=== PATIENT | female | born 1975 | race Hispanic/Latino ===

== ENCOUNTER 2018-09-23 13:33 | Inpatient (IN) | payer MEDICAID ==
[2018-09-23] MEDS ORDERED: APRESOLINE IV ONE ×2 (15:52→20:37)
--- NOTE | 2018-09-23 15:54 | History and Physical Report ---
History of Present Illness Chief complaint: transferred from [facility] due to uncontrolled chronic hypertension 177/80s. History of present illness: 43yo 21 2/7 wks YUNIER 02/02/19 was transferred from [facility], maternal medicine due to uncontrolled hypertension. She has a history of chronic hypertension and stroke in 2010. She states she had 4 strokes in one hour. She is followed by a magnetic resonance imaging coordinator Dr. Yasmany Mcneill in [place]. Today she also states she feels substernal chest pain at rest. She reports movement mostly in the mornings. She denies vaginal bleeding, contractions or loss of fluid She is patient of [facility] and has had 3 [facility] appointments. Past History Past Medical History: hypertension, other Past Surgical History: other (Cardiac Cath 2018, Piloneal cyst removal) Family/Genetic History: heart disease, hypertension - Obstetrical History : 4 Para: 3 Number of Living Children: 3 Medications and Allergies Allergies Allergy/AdvReac Type Severity Reaction Status Date / Time No Known Allergies Allergy Unverified 09/23/18 15:23 Home Medications Medication Instructions Recorded Confirmed Last Taken Type Aspirin [Lo-Dose Aspirin EC] 81 mg PO DAILY 09/23/18 09/23/18 09/23/18 05:00 History Ferrous Sulfate [Iron] 325 mg PO DAILY 09/23/18 09/23/18 09/23/18 05:00 History Labetalol [Normodyne TAB] 100 mg PO DAILY 09/23/18 09/23/18 09/23/18 05:00 History Vit-Fe Fumar-FA [ 1 tab PO QDAY 09/23/18 09/23/18 09/23/18 05:00 History Vitamin] cloNIDine [Catapres] 0.1 mg PO PRN 09/23/18 09/23/18 Unknown History Active Meds: Active Medications Hydralazine HCl (Apresoline) 10 mg IV ONCE ONE Stop: 09/23/18 15:53 Lactated Ringer's (Lactated Ringers) 500 mls @ 999 mls/hr IV BOLUS ONE Stop: 09/23/18 17:15 - Vital Signs Vital signs: Vital Signs Pulse BP 75 189/100 09/23/18 15:29 09/23/18 15:29 Temp Pulse Resp BP Pulse Ox 68 181/97 09/23/18 15:46 09/23/18 15:46 Results Result Diagrams: 09/24/18 05:37 09/23/18 16:08 All other labs normal. Assessment and Plan - Patient Problems (1) Chronic hypertension affecting Current Visit: Yes Status: Acute Plan to address problem: Hydralazine PRN Increase Labetolol 200mg PO BID US done yesterday at [facility] labs drawn and repeat at 0600 (2) 21 weeks gestation of Current Visit: Yes Status: Acute (3) Advanced maternal age (AMA), 40 years or greater Current Visit: Yes Status: Acute (4) History of CVA (cerebrovascular accident) Current Visit: Yes Status: Acute Plan to address problem: Continue ASA 81mg Currently on no anti-thrombotics Co-managed with cardiology, [facility] outpatient (5) Chest pain Current Visit: Yes Status: Acute Plan to address problem: EKG ordered Troponin ordered Internal medicine consult
[2018-09-23] MEDS ORDERED: LACTATED RINGERS 500 ML IV ONE (16:45)
[2018-09-23 16:56] LABS: Hemoglobin 11.3 gm/dl (10.1-14.3); Mean Corpuscular HGB Conc 34 % (30-34); Mean Corpuscular Volume 85 fl (79-97); Platelet Count 277 K/mm3 (140-440); Red Blood Count 3.91 M/mm3 (3.65-5.03); Red Cell Distribution Width 15.4 % (13.2-15.2)
[2018-09-23 17:28] LABS: Bacteria,Urine 1+ /HPF (Negative); Bilirubin,Urine NEG (Negative); Blood,Urine NEG (Negative); Color,Urine Amber (Yellow); Mucus,Urine 2+ /HPF; Urobilinogen,Urine < 2.0 mg/dL (<2.0)
[2018-09-23 17:29] LABS: Alanine Aminotransferase 16 units/L (7-56)
[2018-09-23] MEDS: NORMODYNE PO SCH (21:47)
[2018-09-23] MEDS ORDERED: NORMODYNE PO SCH (22:00)
[2018-09-23] MEDS ORDERED: TYLENOL PO PRN (22:03)
[2018-09-23] MEDS ORDERED: COLACE PO PRN (22:03)
--- NOTE | 2018-09-24 03:07 | History and Physical Report ---
History of Present Illness Date of admission: 09/23/18 20:14 Medications and Allergies Allergies Allergy/AdvReac Type Severity Reaction Status Date / Time No Known Allergies Allergy Unverified 09/23/18 15:23 Home Medications Medication Instructions Recorded Confirmed Last Taken Type Aspirin [Lo-Dose Aspirin EC] 81 mg PO DAILY 09/23/18 09/23/18 09/23/18 05:00 History Ferrous Sulfate [Iron] 325 mg PO DAILY 09/23/18 09/23/18 09/23/18 05:00 History Labetalol [Normodyne TAB] 100 mg PO DAILY 09/23/18 09/23/18 09/23/18 05:00 History Vit-Fe Fumar-FA [ 1 tab PO QDAY 09/23/18 09/23/18 09/23/18 05:00 History Vitamin] cloNIDine [Catapres] 0.1 mg PO PRN 09/23/18 09/23/18 Unknown History Active Meds: Active Medications Acetaminophen (Tylenol) 650 mg PO Q4H PRN PRN Reason: Pain MILD(1-3)/Fever >100.5/ALMODOVAR Last Admin: 09/23/18 22:18 Dose: 650 mg Documented by: Aspirin (Baby Aspirin) 81 mg PO QDAY [facility] Docusate Sodium (Colace) 100 mg PO Q12H PRN PRN Reason: Constipation Labetalol HCl (Normodyne) 300 mg PO BID [facility] Last Admin: 09/23/18 21:47 Dose: 300 mg Documented by: Multivitamins/Iron/Calcium ( Vitamin) 1 each PO QDAY [facility] Exam - Constitutional Vitals: Temp Pulse Resp BP Pulse Ox 98.1 F 82 18 111/62 09/23/18 16:00 09/24/18 02:53 09/23/18 16:00 09/24/18 02:53 Results - Labs CBC & Chem 7: 09/23/18 16:08 09/23/18 16:08 Labs: Abnormal lab results 09/23/18 09/23/18 Range/Units 16:08 16:08 RDW 15.4 H (13.2-15.2) % AST 43 H (5-40) units/L Lactate Dehydrogenase 466 H (91-180) units/L
--- NOTE | 2018-09-24 03:08 | Consultation ---
History of Present Illness - Reason for Consult Consult date: 09/23/18 - History of Present Illness 43-year-old with a history of hypertension, uncontrolled, 21 weeks comes emergency room for further control of blood pressure. He also complained of chest pain, left chest, sharp, intensity 4/10, usually lasting for less than 1 minute, no radiation, cannot identify exacerbating or relieving factors. She states that she has been having this chest pain 1-2 times a week over the last 1 year. She had a cardiac cath in 2017, no stents were placed. She's also states she has a history of CVA, she had 4 strokes in 24 hours. Over the last 2 weeks she has been on bed rest. No nausea or vomiting, shortness of breath, diaphoresis or palpitation. She takes frequent Tums for heartburn Review of systems Constitutional: no weight loss, chills, fever Ears, eyes, nose, mouth and throat: no nasal congestion, no nasal discharge, no sinus pressure, no vision change, no red eye. Neck: No neck pain or rigidity. Cardiovascular: no palpitations Respiratory: no cough, shortness of breath Gastrointestinal: no hematochezia, abdominal pain Genitourinary : no frequency , no hematuria Musculoskeletal: no joint swelling or muscle ache Integumentary: no rash, no pruritis Neurological: no parathesias, no focal weakness Endocrine: no cold or heat intolerance, no polyuria or polydipsia Hematologic/Lymphatic: no easy bruising, no easy bleeding, no gland swelling Allergic/Immunologic: no urticaria, no angioedema. PAST MEDICAL HISTORY: Hypertension PAST SURGICAL HISTORY: None SOCIAL HISTORY: Denies alcohol, drugs, tobacco FAMILY HISTORY: Hypertension Medications and Allergies Allergies Allergy/AdvReac Type Severity Reaction Status Date / Time No Known Allergies Allergy Unverified 09/23/18 15:23 Home Medications Medication Instructions Recorded Confirmed Last Taken Type Aspirin [Lo-Dose Aspirin EC] 81 mg PO DAILY 09/23/18 09/23/18 09/23/18 05:00 History Ferrous Sulfate [Iron] 325 mg PO DAILY 09/23/18 09/23/18 09/23/18 05:00 History Labetalol [Normodyne TAB] 100 mg PO DAILY 09/23/18 09/23/18 09/23/18 05:00 History Vit-Fe Fumar-FA [ 1 tab PO QDAY 09/23/18 09/23/18 09/23/18 05 :00 History Vitamin] cloNIDine [Catapres] 0.1 mg PO PRN 09/23/18 09/23/18 Unknown History RX: Labetalol [Normodyne TAB] 300 mg PO BID #90 tablet 09/26/18 Unknown Rx Active Meds: Active Medications Acetaminophen (Tylenol) 650 mg PO Q4H PRN PRN Reason: Pain MILD(1-3)/Fever >100.5/ALMODOVAR Last Admin: 09/23/18 22:18 Dose: 650 mg Documented by: Aspirin (Baby Aspirin) 81 mg PO QDAY [facility] Docusate Sodium (Colace) 100 mg PO Q12H PRN PRN Reason: Constipation Labetalol HCl (Normodyne) 300 mg PO BID [facility] Last Admin: 09/23/18 21:47 Dose: 300 mg Documented by: Multivitamins/Iron/Calcium ( Vitamin) 1 each PO QDAY [facility] Exam - Physical Exam Narrative exam: General Apperance: The patient lying in bed, breathing comfortable HEENT: Normocephalic, atraumatic. Pupils equally round and reactive to light, EOMI, no sclericterus or JVD or thyromegaly or nodule. , no carotid bruit, muc ous membranes moist, no exudate or erythema Heart: S1-S2, regular is rhythm Lungs: Clear to auscultation bilaterally, breathing comfortable Abdomen: Positive bowel sounds, soft, nontender, nondistended, no organomegaly Extremities: No edema cyanosis clubbing Skin: no rash, nodule, warm and dry Neuro: cranial nerves 2-12 intact, speech is fluent, motor/sensory intact - Constitutional Vitals: Temp Pulse Resp BP Pulse Ox 98.1 F 82 18 111/62 09/23/18 16:00 09/24/18 02:53 09/23/18 16:00 09/24/18 02:53 Results - Labs CBC & Chem 7: 09/24/18 05:37 09/23/18 16:08 Labs: Abnormal lab results 09/23/18 09/23/18 Range/Units 16:08 16:08 RDW 15.4 H (13.2-15.2) % AST 43 H (5-40) units/L Lactate Dehydrogenase 466 H (91-180) units/L - Imaging and Cardiology EKG: image reviewed Assessment and Plan Assessment Atypical chest pain Hypertension Check cardiac enzymes She has risk factors for pulmonary emboli, discuss workup She will think about a lesion and discussed with Her blood Pressure is now controlled, continue current management Please initiate DVT prophylaxis
[2018-09-24] MEDS ORDERED: TYLENOL PO NR (04:58)
[2018-09-24 05:55] LABS: Hematocrit 32.9 % (30.3-42.9); Hemoglobin 10.9 gm/dl (10.1-14.3); Mean Corpuscular HGB Conc 33 % (30-34); Mean Corpuscular Volume 86 fl (79-97); Platelet Count 291 K/mm3 (140-440); Red Blood Count 3.83 M/mm3 (3.65-5.03); Red Cell Distribution Width 15.6 % (13.2-15.2)
[2018-09-24 06:14] LABS: Alanine Aminotransferase 14 units/L (7-56)
[2018-09-24 06:34] LABS: Creatine Kinase MB < 1.0 ng/mL (0.0-4.0)
[2018-09-24 10:16] LABS: Creatine Kinase MB < 1.0 ng/mL (0.0-4.0)
[2018-09-24] MEDS: NORMODYNE PO SCH ×2 (10:43→22:00)
[2018-09-24] MEDS: PRENATAL VITAMIN PO SCH (10:43)
[2018-09-24] MEDS: BABY ASPIRIN PO SCH (10:43)
--- NOTE | 2018-09-24 10:48 | Progress Note ---
Assessment and Plan - Patient Problems (1) 21 weeks gestation of Onset Date: ~09/23/18 Current Visit: Yes Status: Acute Plan to address problem: A: IUP @ 21 3/7 weeks Chest pain AMA Chronic hypertension P: Continue present management Appreciate Hospitalist input Obtain [facility] and Cardiology consultation (2) Advanced maternal age (AMA), 40 years or greater Onset Date: ~09/24/18 Current Visit: Yes Status: Chronic (3) Chest pain Onset Date: ~09/23/18 Current Visit: Yes Status: Acute Qualifiers: Ischemic chest pain type: unspecified angina pectoris type (4) Chronic hypertension affecting Onset Date: ~09/23/18 Current Visit: Yes Status: Chronic (5) History of CVA (cerebrovascular accident) Onset Date: Unknown Current Visit: Yes Status: Chronic Subjective - Subjective Date of service: 09/24/18 Principal diagnosis: IUP @ 21 3/7 weeks; Chronic hypertension; Chest pain Interval history: Pt is a 42yo BF EGA 21 3/7 wks YUNIER 02/02/19 was admitted from [facility], maternal medicine due to uncontrolled hypertension on 09/23/18 . She has a history of chronic hypertension and stroke. She is followed by a forensic investigator Dr. Yasmany Mcneill in [place]. On admission she felt substernal chest pain at rest. It was previously recommended to obtain Cardiology consult during this admission . She currently denies chest pain, SOB, VB, ABD pain , calf pain , LOF, and BP's have improved while increase on Labetalol. She has been ev aluated by [facility] Hospitalist, and a Cardiology consult has been ordered. Patient reports: movement normal, no new complaints, no loss of fluid, no vaginal bleeding, no contractions Objective - Vital Signs Vital Signs: Vital Signs - 12hr 09/23/18 09/23/18 09/23/18 22:53 23:13 23:33 Temperature Pulse Rate 86 83 90 Respiratory Rate Blood Pressure 133/72 121/58 107/53 09/23/18 09/24/18 09/24/18 23:53 00:00 00:13 Temperature 98.8 F Pulse Rate 81 90 Respiratory Rate Blood Pressure 134/66 108/62 09/24/18 09/24/18 09/24/18 00:33 00:53 01:13 Temperature Pulse Rate 83 88 84 Respiratory Rate Blood Pressure 108/56 94/56 139/71 09/24/18 09/24/18 09/24/18 01:33 01:53 02:13 Temperature Pulse Rate 77 77 86 Respiratory Rate Blood Pressure 123/58 108/56 115/54 09/24/18 09/24/18 09/24/18 02:33 02:53 03:13 Temperature Pulse Rate 82 82 74 Respiratory Rate Blood Pressure 110/56 111/62 123/59 09/24/18 09/24/18 09/24/18 03:33 03:53 04:07 Temperature 98.4 F Pulse Rate 77 74 Respiratory Rate Blood Pressure 115/57 154/83 09/24/18 09/24/18 09/24/18 04:13 04:33 04:53 Temperature Pulse Rate 71 73 68 Respiratory Rate Blood Pressure 140/73 136/64 129/65 09/24/18 09/24/18 09/24/18 05:13 05:28 05:52 Temperature Pulse Rate 73 73 Respiratory 12 Rate Blood Pressure 137/73 140/68 09/24/18 09/24/18 09/24/18 06:13 06:33 06:53 Temperature Pulse Rate 77 83 77 Respiratory Rate Blood Pressure 160/77 149/72 137/61 09/24/18 09/24/18 09/24/18 07:13 07:33 07:52 Temperature Pulse Rate 76 74 75 Respiratory Rate Blood Pressure 141/66 142/66 147/66 09/24/18 09/24/18 09/24/18 08:12 08:33 08:53 Temperature Pulse Rate 71 71 65 Respiratory Rate Blood Pressure 139/93 176/87 182/89 09/24/18 09/24/18 09/24/18 09:13 09:33 09:52 Temperature Pulse Rate 77 71 69 Respiratory Rate Blood Pressure 189/93 162/87 141/93 09/24/18 09/24/18 09/24/18 10:13 10:33 10:43 Temperature Pulse Rate 66 75 75 Respiratory Rate Blood Pressure 178/79 171/80 171/80 09/24/18 10:44 Temperature Pulse Rate 68 Respiratory Rate Blood Pressure 180/85 - Exam Cardiovascular: Regular rate Lungs: Clear to auscultation Abdomen: Present: normal appearance, soft Uterus: Present: normal FHR: category 1 Uterine Contraction Monitor Mode: External Uterine Contraction Pattern: Absent - Labs Labs: Abnormal Labs 09/23/18 09/23/18 09/24/18 16:08 16:08 05:37 RDW 15.4 H 15.6 H AST 43 H Lactate Dehydrogenase 466 H Total Creatine Kinase 09/24/18 05:37 RDW AST Lactate Dehydrogenase Total Creatine Kinase 26 L Laboratory Results - last 24 hr 09/23/18 09/23/18 09/23/18 16:08 16:08 16:35 WBC 9.6 RBC 3.91 Hgb 11.3 Hct 33.0 MCV 85 MCH 29 MCHC 34 RDW 15.4 H Plt Count 277 Creatinine 0.7 Estimated GFR > 60 Uric Acid 6.0 AST 43 H ALT 16 Lactate Dehydrogenase 466 H Total Creatine Kinase CK-MB (CK-2) CK-MB (CK-2) Rel Index Troponin T Urine Color Genet Urine Turbidity Slightly-cloudy Urine pH 5.0 Ur Specific [place] 1.028 Urine Protein 100 mg/dl Urine Glucose (UA) Neg Urine Ketones 20 Urine Blood Neg Urine Nitrite Neg Urine Bilirubin Neg Urine Urobilinogen < 2.0 Ur Leukocyte Esterase Neg Urine WBC (Auto) 1.0 Urine RBC (Auto) 6.0 U Epithel Cells (Auto) 9.0 Urine Bacteria (Auto) 1+ Urine Mucus 2+ 09/24/18 09/24/18 09/24/18 05:37 05:37 05:37 WBC 10.4 RBC 3.83 Hgb 10.9 Hct 32.9 MCV 86 MCH 29 MCHC 33 RDW 15.6 H Plt Count 291 Creatinine Estimated GFR Uric Acid AST ALT 14 Lactate Dehydrogenase 143 Total Creatine Kinase CK-MB (CK-2) CK-MB (CK-2) Rel Index Troponin T < 0.010 Urine Color Urine Turbidity Urine pH Ur Specific [place] Urine Protein Urine Glucose (UA) Urine Ketones Urine Blood Urine Nitrite Urine Bilirubin Urine Urobilinogen Ur Leukocyte Esterase Urine WBC (Auto) Urine RBC (Auto) U Epithel Cells (Auto) Urine Bacteria (Auto) Urine Mucus 09/24/18 09/24/18 09/24/18 05:37 09:12 09:12 WBC RBC Hgb Hct MCV MCH MCHC RDW Plt Count Creatinine Estimated GFR Uric Acid AST ALT Lactate Dehydrogenase Total Creatine Kinase 26 L 33 CK-MB (CK-2) < 1.0 < 1.0 CK-MB (CK-2) Rel Index 3.8 3.0 Troponin T < 0.010 Urine Color Urine Turbidity Urine pH Ur Specific [place] Urine Protein Urine Glucose (UA) Urine Ketones Urine Blood Urine Nitrite Urine Bilirubin Urine Urobilinogen Ur Leukocyte Esterase Urine WBC (Auto) Urine RBC (Auto) U Epithel Cells (Auto) Urine Bacteria (Auto) Urine Mucus - Results US- obstetric: report reviewed
[2018-09-24] MEDS ORDERED: ZOFRAN IV PRN (11:00)
[2018-09-24] MEDS ORDERED: COLACE PO PRN (11:00)
[2018-09-24] MEDS ORDERED: LACTATED RINGERS 1,000 ML IV SCH (11:00)
[2018-09-24] MEDS: HEPARIN SUB-Q SCH ×2 (11:40→22:04)
--- NOTE | 2018-09-24 12:52 | Consultation ---
History of Present Illness Reason for consult: other (42yo 21 3/7 wks YUNIER 02/02/19 was admitted from [facility], maternal medicine due to uncontrolled hypertension on 09/23/18 . She has a history of chronic hypertension and stroke (She stated she had 4 strokes in one hour) She is followed by a registered nurse supervisor Dr. Yasmany Mcneill in [place]. Yesterday she felt substernal chest pain at rest. It was previously recommended to obtain Cardiology consult during this admission . Patient denies chest pain, SOB, VB, ABD pain , calf pain , LOF . BP's have improved during admission while increase in Labetalol . Patient was started on Heparin 5, 000 unit SQ BID per hospitalist .) Past History Past Medical History: hypertension, other Past Surgical History: other (Cardiac Cath 2018, Piloneal cyst removal) Family/Genetic History: heart disease, hypertension - Obstetrical History : 4 Medications and Allergies Allergies Allergy/AdvReac Type Severity Reaction Status Date / Time No Known Allergies Allergy Unverified 09/23/18 15:23 Home Medications Medication Instructions Recorded Confirmed Last Taken Type Aspirin [Lo-Dose Aspirin EC] 81 mg PO DAILY 09/23/18 09/23/18 09/23/18 05:00 History Ferrous Sulfate [Iron] 325 mg PO DAILY 09/23/18 09/23/18 09/23/18 05:00 History Labetalol [Normodyne TAB] 100 mg PO DAILY 09/23/18 09/23/18 09/23/18 05:00 History Vit-Fe Fumar-FA [ 1 tab PO QDAY 09/23/18 09/23/18 09/23/18 05:00 History Vitamin] cloNIDine [Catapres] 0.1 mg PO PRN 09/23/18 09/23/18 Unknown History Active Meds: Active Medications Acetaminophen (Tylenol) 650 mg PO Q4H PRN PRN Reason: Pain MILD(1-3)/Fever >100.5/ALMODOVAR Aspirin (Baby Aspirin) 81 mg PO QDAY [facility] Last Admin: 09/24/18 10:43 Dose: 81 mg Documented by: Docusate Sodium (Colace) 100 mg PO Q12H PRN PRN Reason: Constipation Heparin Sodium (Porcine) (Heparin) 5,000 unit SUB-Q Q12HR [facility] Last Admin: 09/24/18 11:40 Dose: 5,000 unit Documented by: Lactated Ringer's (Lactated Ringers) 1,000 mls @ 125 mls/hr IV DIRECT [facility] Labetalol HCl (Normodyne) 300 mg PO BID [facility] Last Admin: 09/24/18 10:43 Dose: 300 mg Documented by: Multivitamins/Iron/Calcium ( Vitamin) 1 each PO QDAY [facility] Last Admin: 09/24/18 10:43 Dose: 1 each Documented by: Ondansetron HCl (Zofran) 4 mg IV Q6H PRN PRN Reason: Nausea And Vomiting Review of Systems Constitutional: no fever, no chills, no fatigue Eyes: no other (visual changes ) Ears, nose, mouth and throat: no headache Cardiovascular: high blood pressure (CHTN stable BP under current medical therpay ), no chest pain, no palpitations, no rapid/irregular heart beat, no edema, no syncope, no lightheadedness, no dyspnea on exertion, no leg edema Respiratory: no cough, no shortness of breath Breasts: deferred Gastrointestinal: no abdominal pain, no nausea, no vomiting Genitourinary: no vaginal bleeding, no leakage of fluid, no pelvic pain, no contractions Rectal Exam: deferred Musculoskeletal: no low back pain, no other (calf pain ) Integumentary: no rash Neurological: no seizures, no syncope, no headaches Endocrine: other (history of GDM ) Hematologic/Lymphatic: no easy bruising - Vital Signs Vital signs: Vital Signs Pulse BP 75 189/100 09/23/18 15:29 09/23/18 15:29 Temp Pulse Resp BP Pulse Ox 98.1 F 69 16 121/71 09/24/18 11:23 09/24/18 12:36 09/24/18 11:23 09/24/18 12:36 - Physical Exam Breasts: Positive: deferred Cardiovascular: Regular rate Lungs: Positive: Normal air movement Abdomen: Negative: tenderness, guarding Uterus: Negative: tender Extremities: Positive: normal. Negative: tenderness, edema Deep Tendon Reflex Grade: Normal +2 - Obstetrical FHR: auscultation normal (per doppler by RN ) Uterine Contraction Monitor Mode: Palpation (none palpated) Results Result Diagrams: 09/24/18 05:37 09/23/18 16:08 Abnormal lab results 09/23/18 09/23/18 09/24/18 Range/Units 16:08 16:08 05:37 RDW 15.4 H 15.6 H (13.2-15.2) % AST 43 H (5-40) units/L Lactate Dehydrogenase 466 H (91-180) units/L Total Creatine Kinase (30-135) units/L 09/24/18 Range/Units 05:37 RDW (13.2-15.2) % AST (5-40) units/L Lactate Dehydrogenase (91-180) units/L Total Creatine Kinase 26 L (30-135) units/L All other labs normal. Assessment and Plan IMPRESSIONS: 1. 21 3/7 weeks, SIUP 2. CHTN; improved and stable from [facility] assessment 09/23/18 ( BP of 177/98 and 162/88 mm Hg ) 3. On anticoagulant therapy of heparin for DVT prophylaxis 4. Hx Stroke x4 5. History of CHTN x [address] Mcneill ( [facility] ) 6. AMA previously declined amnio 7. NIPT screened Low Risk , Female 8. Chest pain S/P evaluation by hospitalist - no longer reports chest pain ( previous assessment chest pain, left chest, sharp, intensity 4/10, usually lasting for less than 1 minute, no radiation, cannot identify exacerbating or relieving factors. She states that she has been having this chest pain 1-2 times a week over the last 1 year.) 9. 24 hr urine in progress . 10. Hx of coronary catherization 11. Hx of GDM ( no early GCT screen ) 12. BP 120-140's /70-90 mm Hg under Labetalol 300 mg PO BID 13. Elevated AST 14. Abn ECG -Left ventricular hypertrophy 15. ECG - rate 72 Sinus rhythm RECOMMENDATIONS: 1. Patient to complete 24 hr urine at home 2. As previously recommended obtain Cardiology evaluation while in patient 3. Remain in patient pending lab review and stabilization of patient 4. Document 12-Lead EKG if not done within last 12 months 5. Continue Labetalol to 300 mg PO BID as previously prescribed 6. Do not drop patient's BP too significantly 7. Bring BP log to OB/our office each visit 8. Continue current Heparin therapy as previously recommended 9. Obtain OB U/S for growth assessment and placental anatomy 10. Repeat CMP 11. With any questions or further assessment notify [facility] construction crew member provider - Dr. Portillo
--- NOTE | 2018-09-24 14:47 | Progress Note ---
Assessment and Plan Assessment and plan: Patient is a 43 yo woman who is 21 weeks with a history of hypertension, CVA x 4 with resolved right hemiparesis followed by General Surgeon, Dr. Bryant Mcneill who presented to [facility] with uncontrolled hypertension. She is currently in the L&D unit. Hospitalist team consulted for chest pains. Chest pains with negative troponin x 2 and unremarkable EKG for infarction and resolved chest pains: Recommend Cardiology consult if Chest pains re-occurs, if there is a question of PE I would recommend pulmonology consult. Uncontrolled hypertension: tariff publishing agent managing IUP: monitoring per tariff publishing agent Nothing more to add, will sign off. History Interval history: Patient was seen and examined. Follow-up on current diagnosis of chest pains. Overnight uneventful. Patient denies any chest pain currently, shortness breath, nausea/vomiting or severe headaches. Imaging, nursing note, chart, labs and old chart reviewed. Discussed with patient. Hospitalist Physical - Physical exam Narrative exam: Gen: WDWN, NAD, Awake, Alert, Orientated HEENT: NCAT, EOMI, PERRL, OP Clear Neck: supple, no adenopathy, no thyromegaly, no JVD CVS/Heart: RRR, normal S1S2, pulses present bilaterally Chest/Lungs: CTA B, Symmetrical chest expansion, good air entry bilaterally GI/Abdomen: soft, NTND, good bowel sounds, no guarding or rebound /Bladder: no suprapubic tenderness, no CVA or paraspinal tenderness Extermity/Skin: no c/c/e, no obvious rash MSK: FROM x 4 Neuro: CN 2-12 grossly intact, no new focal deficits Psych: calm - Constitutional Vitals: Temp Pulse Resp BP Pulse Ox 98.1 F 78 16 143/77 09/24/18 11:23 09/24/18 13:43 09/24/18 11:23 09/24/18 13:43 Results - Labs CBC & Chem 7: 09/24/18 05:37 09/23/18 16:08 Labs: Laboratory Last Values WBC 10.4 K/mm3 (4.5-11.0) 09/24/18 05:37 RBC 3.83 M/mm3 (3.65-5.03) 09/24/18 05:37 Hgb 10.9 gm/dl (10.1-14.3) 09/24/18 05:37 Hct 32.9 % (30.3-42.9) 09/24/18 05:37 MCV 86 fl (79-97) 09/24/18 05:37 MCH 29 pg (28-32) 09/24/18 05:37 MCHC 33 % (30-34) 09/24/18 05:37 RDW 15.6 % (13.2-15.2) H 09/24/18 05:37 Plt Count 291 K/mm3 (140-440) 09/24/18 05:37 Creatinine 0.7 mg/dL (0.7-1.2) 09/23/18 16:08 Estimated GFR > 60 ml/min 09/23/18 16:08 Uric Acid 6.0 mg/dL (3.5-7.6) 09/23/18 16:08 AST 43 units/L (5-40) H 09/23/18 16:08 ALT 14 units/L (7-56) 09/24/18 05:37 Lactate Dehydrogenase 143 units/L (91-180) 09/24/18 05:37 Total Creatine Kinase 33 units/L (30-135) 09/24/18 09:12 CK-MB (CK-2) < 1.0 ng/mL (0.0-4.0) 09/24/18 09:12 CK-MB (CK-2) Rel Index 3.0 (0-4) 09/24/18 09:12 Troponin T < 0.010 ng/mL (0.00-0.029) 09/24/18 09:12 Urine Color Genet (Yellow) 09/23/18 16:35 Urine Turbidity Slightly-cloudy (Clear) 09/23/18 16:35 Urine pH 5.0 (5.0-7.0) 09/23/18 16:35 Ur Specific Temple 1.028 (1.003-1.030) 09/23/18 16:35 Urine Protein 100 mg/dl mg/dL (Negative) 09/23/18 16:35 Urine Glucose (UA) Neg mg/dL (Negative) 09/23/18 16:35 Urine Ketones 20 mg/dL (Negative) 09/23/18 16:35 Urine Blood Neg (Negative) 09/23/18 16:35 Urine Nitrite Neg (Negative) 09/23/18 16:35 Urine Bilirubin Neg (Negative) 09/23/18 16:35 Urine Urobilinogen < 2.0 mg/dL (<2.0) 09/23/18 16:35 Ur Leukocyte Esterase Neg (Negative) 09/23/18 16:35 Urine WBC (Auto) 1.0 /HPF (0.0-6.0) 09/23/18 16:35 Urine RBC (Auto) 6.0 /HPF (0.0-6.0) 09/23/18 16:35 U Epithel Cells (Auto) 9.0 /HPF (0-13.0) 09/23/18 16:35 Urine Bacteria (Auto) 1+ /HPF (Negative) 09/23/18 16:35 Urine Mucus 2+ /HPF 09/23/18 16:35 Blood Type O POSITIVE 09/24/18 11:15 Antibody Screen Negative 09/24/18 11:15
--- NOTE | 2018-09-24 16:22 | Consultation ---
Addendum entered and electronically signed by RUFINA AMATO MD 09/24/18 16:39: BP is under control now.(129/60 mm Hg.at 4.24 PM). To obtain old records. F/U Echo (pending). Original Note: History of Present Illness Consult date: 09/24/18 Requesting physician: IWONA DALTON Consult reason: chest pain History of present illness: The patient is a 43 YO female who is 21 weeks with a history of reported nonobstructive CAD, hypertension and CVA in 2010. She reports that her licensed journeyman electrician is Dr. Bryant Mcneill in [place]. She presented from [facility] office for management of elevated BPs. She states that while in triage yesterday, she experienced a bout of chest pain and thus cardiology has been consulted for further eval. She describes her chest pain as a brief (3-4 second) bout of midsternal shooting pain which spontaneously resolved. She denies any SOB, palpitations, n/v, diaphoresis, dizziness or syncope. She reports that she underwent cardiac catheterization in March 2017 at [facility] and was told that she had nonobstructive CAD. She denies any prior AMI, HF or arrhythmia. She is with her 5th child. She denies any complications during other pregnancies. Past History Past Medical History: hypertension, stroke Social history: denies: smoking, alcohol abuse, prescription drug abuse Medications and Allergies Allergies Allergy/AdvReac Type Severity Reaction Status Date / Time No Known Allergies Allergy Unverified 09/23/18 15:23 Home Medications Medication Instructions Recorded Confirmed Last Taken Type Aspirin [Lo-Dose Aspirin EC] 81 mg PO DAILY 09/23/18 09/23/18 09/23/18 05:00 History Ferrous Sulfate [Iron] 325 mg PO DAILY 09/23/18 09/23/18 09/23/18 05:00 History Labetalol [Normodyne TAB] 100 mg PO DAILY 09/23/18 09/23/18 09/23/18 05:00 History Vit-Fe Fumar-FA [ 1 tab PO QDAY 09/23/18 09/23/18 09/23/18 05:00 History Vitamin] cloNIDine [Catapres] 0.1 mg PO PRN 09/23/18 09/23/18 Unknown History Active Meds: Active Medications Acetaminophen (Tylenol) 650 mg PO Q4H PRN PRN Reason: Pain MILD(1-3)/Fever >100.5/ALMODOVAR Aspirin (Baby Aspirin) 81 mg PO QDAY [facility] Last Admin: 09/24/18 10:43 Dose: 81 mg Documented by: Docusate Sodium (Colace) 100 mg PO Q12H PRN PRN Reason: Constipation Heparin Sodium (Porcine) (Heparin) 5,000 unit SUB-Q Q12HR [facility] Last Admin: 09/24/18 11:40 Dose: 5,000 unit Documented by: Lactated Ringer's (Lactated Ringers) 1,000 mls @ 125 mls/hr IV DIRECT [facility] Labetalol HCl (Normodyne) 300 mg PO BID [facility] Last Admin: 09/24/18 10:43 Dose: 300 mg Documented by: Multivitamins/Iron/Calcium ( Vitamin) 1 each PO QDAY [facility] Last Admin: 09/24/18 10:43 Dose: 1 each Documented by: Ondansetron HCl (Zofran) 4 mg IV Q6H PRN PRN Reason: Nausea And Vomiting Review of Systems Constitutional: no weight loss, no weight gain, no fever, no chills, no sweats Ears, nose, mouth and throat: no ear pain, no nose pain, no sinus pressure, no sinus pain Cardiovascular: chest pain, high blood pressure, no orthopnea, no palpitations, no rapid/irregular heart beat, no edema, no syncope, no lightheadedness, no shortness of breath, no dyspnea on exertion, no leg edema, no decreased exercise tolerance Respiratory: no cough, no shortness of breath, no dyspnea on exertion, no congestion, no wheezing, no pain on inspiration Gastrointestinal: no abdominal pain, no nausea, no vomiting, no diarrhea, no constipation, no change in bowel habits Genitourinary Female: no pelvic pain, no flank pain, no dysuria, no urinary frequency, no urgency Musculoskeletal: no neck stiffness, no neck pain, no shooting arm pain, no arm numbness/tingling, no low back pain, no shooting leg pain Integumentary: no rash, no pruritis, no redness, no sores, no wounds Neurological: no head injury, no paralysis, no weakness, no parathesias, no numbness, no tingling, no seizures, no syncope Psychiatric: no anxiety Endocrine: no cold intolerance, no heat intolerance Hematologic/Lymphatic: no easy bruising, no easy bleeding Allergic/Immunologic: no urticaria, no wheezing Physical Examination Vital Signs Pulse BP 75 189/100 09/23/18 15:29 09/23/18 15:29 General appearance: no acute distress HEENT: Positive: PERRL, Normocephaly, Mucus Membranes Moist Neck: Positive: neck supple, trachea midline Cardiac: Positive: Reg Rate and Rhythm, S1/S2, Systolic Murmur Lungs: Positive: clear to auscultation Neuro: Positive: Grossly Intact Abdomen: Negative: Tender Skin: Positive: Clear. Negative: Rash, Wound Musculoskeletal: No Pain Extremities: Absent: edema Results 09/24/18 05:37 09/23/18 16:08 Cardiac Enzymes 09/23/18 09/24/18 09/24/18 Range/Units 16:08 05:37 05:37 AST 43 H (5-40) units/L Lactate Dehydrogenase 466 H 143 (91-180) units/L CK-MB (CK-2) < 1.0 (0.0-4.0) ng/mL 09/24/18 Range/Units 09:12 AST (5-40) units/L Lactate Dehydrogenase (91-180) units/L CK-MB (CK-2) < 1.0 (0.0-4.0) ng/mL CBC 09/23/18 09/24/18 Range/Units 16:08 05:37 WBC 9.6 10.4 (4.5-11.0) K/mm3 RBC 3.91 3.83 (3.65-5.03) M/mm3 Hgb 11.3 10.9 (10.1-14.3) gm/dl Hct 33.0 32.9 (30.3-42.9) % Plt Count 277 291 (140-440) K/mm3 Comprehensive Metabolic Panel 09/23/18 09/24/18 Range/Units 16:08 05:37 Creatinine 0.7 (0.7-1.2) mg/dL AST 43 H (5-40) units/L ALT 16 14 (7-56) units/L - Imaging and Cardiology Echo: pending EKG: report reviewed, image reviewed EKG interpretations - Telemetry EKG Rhythm: Sinus Rhythm - EKG Sinus rhythms and dysrhythmias: sinus rhythm Chamber hypertrophy or enlargement: left ventricular hypertro Assessment and Plan Chest pain currently resolved. Adriano negative for AMI, ECG with no acute ischemic changes. Request medical records from [facility] - pt reportedly underwent LHC 03/2017. Obtain echo. Optimize anti-hypertensive regimen. The patient has been seen in conjunction with Dr. Groves who agrees with the assessment and plan of care. - Patient Problems (1) Atypical chest pain Current Visit: Yes Status: Acute (2) 21 weeks gestation of Current Visit: Yes Status: Acute (3) Chronic hypertension affecting Current Visit: Yes Status: Acute (4) Nonobstructive atherosclerosis of coronary artery Current Visit: Yes Status: Chronic (5) History of CVA (cerebrovascular accident) Current Visit: Yes Status: Chronic
[2018-09-24] MEDS: APRESOLINE IV PRN (21:40)
[2018-09-24] MEDS: TYLENOL PO PRN (23:25)
[2018-09-25] MEDS: APRESOLINE IV PRN ×2 (02:06→10:39)
[2018-09-25] MEDS: TYLENOL PO PRN ×2 (03:42→20:20)
[2018-09-25] MEDS ORDERED: PERCOCET 5/325 PO NR (06:05)
--- NOTE | 2018-09-25 08:19 | Progress Note ---
Assessment and Plan - Patient Problems (1) 21 weeks gestation of Onset Date: ~09/23/18 Current Visit: Yes Status: Acute Plan to address problem: A: IUP @ 21 4/7 weeks Chest pain - resolved AMA Chronic hypertension - improved on Labetolol 300mg BID P: Continue present management Appreciate Hospitalist input Obtain APA and Cardiology consultation (2) Advanced maternal age (AMA), 40 years or greater Onset Date: ~09/24/18 Current Visit: Yes Status: Chronic (3) Chest pain Onset Date: ~09/23/18 Current Visit: Yes Status: Acute Qualifiers: Ischemic chest pain type: unspecified angina pectoris type (4) Chronic hypertension affecting Onset Date: ~09/23/18 Current Visit: Yes Status: Chronic (5) History of CVA (cerebrovascular accident) Onset Date: Unknown Current Visit: Yes Status: Chronic Subjective - Subjective Date of service: 09/25/18 Principal diagnosis: IUP @ 21 4/7 weeks; Chronic hypertension; Chest pain Interval history: Pt is a 42yo BF EGA 21 4/7 wks YUNIER 02/02/19 was admitted from [facility], maternal medicine due to uncontrolled hypertension on 09/23/18 . She has a history of chronic hypertension and stroke. She is followed by a fashion intern Dr. Yasmany Mcneill in [place]. On admission she felt substernal chest pain at rest. It was previously recommended to obtain Cardiology consult during this admission . She currently denies chest pain, SOB, VB, ABD pain , calf pain , LOF, and BP's have improved while on Labetolol. She has been evaluated by the Hospitalist, and Pellet Machine Operator. This morning she is complaining of a headache - relieved somewhat with Percocet. Patient reports: movement normal, no new complaints, no loss of fluid, no vaginal bleeding, no contractions Objective - Vital Signs Vital Signs: Vital Signs - 12hr 09/24/18 09/24/18 09/24/18 20:39 20:42 21:12 Temperature Pulse Rate 70 78 73 Respiratory Rate Blood Pressure 164/76 166/78 191/84 O2 Sat by Pulse Oximetry 09/24/18 09/24/18 09/24/18 21:40 21:42 21:50 Temperature Pulse Rate 73 80 83 Respiratory Rate Blood Pressure 191/84 214/116 192/95 O2 Sat by Pulse Oximetry 09/24/18 09/24/18 09/24/18 21:55 22:00 22:05 Temperature Pulse Rate 72 72 86 Respiratory Rate Blood Pressure 188/88 188/88 204/95 O2 Sat by Pulse Oximetry 09/24/18 09/24/18 09/24/18 22:11 22:41 23:11 Temperature Pulse Rate 87 89 86 Respiratory Rate Blood Pressure 203/97 174/98 162/83 O2 Sat by Pulse Oximetry 09/24/18 09/25/18 09/25/18 23:41 00:11 00:41 Temperature 98.6 F Pulse Rate 93 H 84 100 H Respiratory 18 Rate Blood Pressure 116/68 129/66 188/95 O2 Sat by Pulse 99 Oximetry 09/25/18 09/25/18 09/25/18 01:11 01:41 02:06 Temperature 98.2 F Pulse Rate 82 80 80 Respiratory 16 Rate Blood Pressure 126/61 173/83 173/83 O2 Sat by Pulse 99 Oximetry 09/25/18 09/25/18 09/25/18 02:12 02:18 02:23 Temperature Pulse Rate 87 85 90 Respiratory Rate Blood Pressure 143/73 127/59 127/58 O2 Sat by Pulse Oximetry 09/25/18 09/25/18 09/25/18 02:28 02:33 02:38 Temperature Pulse Rate 90 88 96 H Respiratory Rate Blood Pressure 126/57 127/60 132/58 O2 Sat by Pulse Oximetry 09/25/18 09/25/18 09/25/18 02:43 03:42 03:46 Temperature 98.5 F Pulse Rate 88 93 H Respiratory 18 16 Rate Blood Pressure 131/58 126/68 O2 Sat by Pulse Oximetry 09/25/18 09/25/18 09/25/18 04:46 05:46 06:46 Temperature Pulse Rate 99 H 105 H 93 H Respiratory Rate Blood Pressure 135/77 141/85 180/86 O2 Sat by Pulse Oximetry 09/25/18 09/25/18 07:35 07:46 Temperature Pulse Rate 89 91 H Respiratory Rate Blood Pressure 170/79 162/75 O2 Sat by Pulse Oximetry - Exam Cardiovascular: Regular rate Abdomen: Present: normal appearance, soft Uterus: Present: normal FHR: category 1 Uterine Contraction Pattern: Absent - Labs Labs: Abnormal Labs 09/23/18 09/23/18 09/23/18 16:08 16:08 20:18 RDW 15.4 H AST 43 H Lactate Dehydrogenase 466 H Total Creatine Kinase Ur Total Protein 24 Hr 300.00 H Urine Total Protein 20 H 09/24/18 09/24/18 05:37 05:37 RDW 15.6 H AST Lactate Dehydrogenase Total Creatine Kinase 26 L Ur Total Protein 24 Hr Urine Total Protein Laboratory Results - last 24 hr 09/23/18 09/24/18 09/24/18 20:18 09:12 09:12 AST Total Creatine Kinase 33 CK-MB (CK-2) < 1.0 CK-MB (CK-2) Rel Index 3.0 Troponin T < 0.010 Urine Total Volume 1500 Ur Total Protein 24 Hr 300.00 H Urine Total Protein 20 H Blood Type Antibody Screen 09/24/18 09/25/18 11:15 06:10 AST 19 Total Creatine Kinase CK-MB (CK-2) CK-MB (CK-2) Rel Index Troponin T Urine Total Volume Ur Total Protein 24 Hr Urine Total Protein Blood Type O POSITIVE Antibody Screen Negative - Results US- obstetric: report reviewed
[2018-09-25] MEDS ORDERED: PRENATAL VITAMIN PO SCH (10:00)
[2018-09-25] MEDS: NORMODYNE PO SCH ×2 (10:20→22:24)
[2018-09-25] MEDS: HEPARIN SUB-Q SCH ×2 (10:20→22:25)
[2018-09-25] MEDS: PRENATAL VITAMIN PO SCH (10:21)
[2018-09-25] MEDS ORDERED: TORADOL IV ONE (11:00)
[2018-09-25] MEDS: BABY ASPIRIN PO SCH (11:30)
--- NOTE | 2018-09-25 13:58 | Consultation ---
History of Present Illness Consult date: 09/25/18 Requesting physician: SUNDAR FERNANDES Reason for consult: gestational hypertension History of present illness: To: Dr. Sundar Fernandes, et al From: Moise Portillo M.D. RE: NAZ TAVARES : 73 IUP at 21 weeks 3 days. Admitted with chest pain and elevated blood pressure - resolved. Poorly controlled Chronic Hypertension with Markedly Elevated Systolic Blood Pressure. History of strokes in February 2011 (right side paralysis) Rule out superimposed recurrent preeclampsia unlikely Status post Cardiology consultation.. Date: Thursday, August 15, 2018 As you are aware, this is a 43 year old para 3003 referred to our office due to elevated blood pressure. Patient has a history of CHTN and previous strokes (x4) in February 2011. She had transient shortness of breath and elevated blood pressure on admission. She reports that her ecommerce marketing specialist is Dr. Bryant Mcneill in [place]. She presented from [facility] office for management of elevated BPs. She states that while in triage yesterday, she experienced a bout of chest pain and thus cardiology has been consulted for further eval. She describes her chest pain as a brief (3-4 second) bout of midsternal shooting pain which spontaneously resolved. She denies any SOB, palpitations, n/v, diaphoresis, dizziness or syncope. She reports that she underwent cardiac catheterization in March 2017 at [facility] and was told that she had nonobstructive CAD. She denies any prior AMI, HF or arrhythmia. She is with her 5th child. She denies any complications during other pregnancies. This is a patient with a history of elevated blood pressure and chest pain that admitted to [facility] to rule out chronic hypertension, or early onset preeclampsia. PAST OB HISTORY: 1992: at term. BW: 7 pounds 5 oz. 1997: at term. BW: 8 pounds 5 oz 2001: at term. BW: 8 pounds 5 oz PAST MEDICAL HISTORY: Patient denies diabetes or asthma. February 2011: Strokes x 4. Had right sided paralysis and was treated at [facility] for rehab. Patient has a history of CHTN several years. Currently taking, Labetalol and baby aspirin PAST SURGICAL HISTORY: * Cardiac catheterization in 2017 CURRENT MEDICATION: See notes in chart. Labetalol. Physical Exam on Evaluation: Recent: 137/74, 106/59, 184/79, 178/89 Cardiac: Regular rate, rhythm, no appreciable murmur Abdomen: Soft, Gravid, non-distended, fundal height consistent with stated EGA General: (+) Periorbital edema. Patient admits to good movement. Ultrasonography at [facility]: See report when in chart. PENDING. CURRENT LABS : See additional details in chart. Past History Past Medical History: hypertension, other Past Surgical History: other (Cardiac Cath 2018, Piloneal cyst removal) Family/Genetic History: heart disease, hypertension - Obstetrical History : 4 Medications and Allergies Allergies Allergy/AdvReac Type Severity Reaction Status Date / Time No Known Allergies Allergy Unverified 09/23/18 15:23 Home Medications Medication Instructions Recorded Confirmed Last Taken Type Aspirin [Lo-Dose Aspirin EC] 81 mg PO DAILY 09/23/18 09/23/18 09/23/18 05:00 History Ferrous Sulfate [Iron] 325 mg PO DAILY 09/23/18 09/23/18 09/23/18 05:00 History Labetalol [Normodyne TAB] 100 mg PO DAILY 09/23/18 09/23/18 09/23/18 05:00 History Vit-Fe Fumar-FA [ 1 tab PO QDAY 09/23/18 09/23/18 09/23/18 05:00 History Vitamin] cloNIDine [Catapres] 0.1 mg PO PRN 09/23/18 09/23/18 Unknown History Active Meds: Active Medications Acetaminophen (Tylenol) 650 mg PO Q4H PRN PRN Reason: Pain MILD(1-3)/Fever >100.5/ALMODOVAR Last Admin: 09/25/18 03:42 Dose: 650 mg Documented by: Aspirin (Baby Aspirin) 81 mg PO QDAY [facility] Last Admin: 09/25/18 11:30 Dose: 81 mg Documented by: Docusate Sodium (Colace) 100 mg PO Q12H PRN PRN Reason: Constipation Heparin Sodium (Porcine) (Heparin) 5,000 unit SUB-Q Q12HR [facility] Last Admin: 09/25/18 10:20 Dose: 5,000 unit Documented by: Hydralazine HCl (Apresoline) 10 mg IV Q30MIN PRN PRN Reason: Blood Pressure Last Admin: 09/25/18 10:39 Dose: 10 mg Documented by: Lactated Ringer's (Lactated Ringers) 1,000 mls @ 125 mls/hr IV DIRECT [facility] Labetalol HCl (Normodyne) 300 mg PO BID [facility] Last Admin: 09/25/18 10:20 Dose: 300 mg Documented by: Multivitamins/Iron/Calcium ( Vitamin) 1 each PO QDAY [facility] Last Admin: 09/25/18 10:21 Dose: 1 each Documented by: Ondansetron HCl (Zofran) 4 mg IV Q6H PRN PRN Reason: Nausea And Vomiting Last Admin: 09/25/18 10:40 Dose: 4 mg Documented by: - Vital Signs Vital signs: Vital Signs Pulse BP 75 189/100 09/23/18 15:29 09/23/18 15:29 Temp Pulse Resp BP Pulse Ox 98.5 F 88 16 143/86 99 09/25/18 03:46 09/25/18 13:46 09/25/18 03:46 09/25/18 13:46 09/25/18 01:41 Results Result Diagrams: 09/24/18 05:37 09/23/18 16:08 Abnormal lab results 09/23/18 Range/Units 20:18 Ur Total Protein 24 Hr 300.00 H (2-200) mg/dL Urine Total Protein 20 H (5-11.8) mg/dL All other labs normal. Assessment and Plan ASSESSMENT: IUP at 21 weeks 3 days. Admitted with chest pain and elevated blood pressure - resolved. Poorly controlled Chronic Hypertension with Markedly Elevated Systolic Blood Pressure. History of strokes in February 2011 (right side paralysis) Rule out superimposed recurrent preeclampsia unlikely Status post Cardiology consultation.. INITIAL INTERVENTIONS: Following admission the patient received Labetalol and Hydralazine. Her blood pressure has stabilized but is still labile. During today's visit with the patient had the opportunity to review her blood pressure trend. Presently patient DENIES headache dizziness blurred vision or right upper quadrant pain and monitoring shows a normal heart rate. Given the early gestational age there is NO evidence of early onset preeclampsia; however there is considerable risk to the mother and fetus due to the aforementioned ongoing medical issues. RECOMMENDATIONS 1. Complete a 24 hour urine to rule out the possibility of significant proteinuria. 2. We remain concerned regarding the possibility of secondary causes for severe hypertension at this gestational age and accordingly this patient merits a formal evaluation to rule out these rare but potentially significant concerns with in the differential diagnosis. 3. If necessary we may need to increase her Aldomet to 500 mg TID. 4. Agree with management per hospitalists. 5. We anticipate an improvement in 24-48 hours Thank you for allowing us to participate in the care of this patient. We will stay in contact with your office during her admission and coordinate her care with the other consulting physicians. We look forward to the opportunity to assist in her continued management. If you have any questions, please contact our office at [phone] Moise Portillo M.D.
[2018-09-26] MEDS: TYLENOL PO PRN (01:30)
[2018-09-26] MEDS: APRESOLINE IV PRN (01:34)
[2018-09-26] MEDS: HEPARIN SUB-Q SCH (09:58)
[2018-09-26] MEDS: PRENATAL VITAMIN PO SCH (09:59)
[2018-09-26] MEDS: NORMODYNE PO SCH (09:59)
[2018-09-26] MEDS: BABY ASPIRIN PO SCH (10:01)
--- NOTE | 2018-09-26 12:08 | Progress Note ---
Assessment and Plan - Patient Problems (1) 21 weeks gestation of Onset Date: ~09/23/18 Current Visit: Yes Status: Acute Plan to address problem: A: IUP @ 21 5/7 weeks Chest pain - resolved AMA Chronic hypertension - stable on Labetolol 300mg BID P: Continue present management Appreciate Hospitalist input Awaiting clearance from Chalk Tester Anticipate discharge today or tomorrow after Cardiology clearance (2) Advanced maternal age (AMA), 40 years or greater Onset Date: ~09/24/18 Current Visit: Yes Status: Chronic (3) Chest pain Onset Date: ~09/23/18 Current Visit: Yes Status: Acute Qualifiers: Ischemic chest pain type: unspecified angina pectoris type (4) Chronic hypertension affecting Onset Date: ~09/23/18 Current Visit: Yes Status: Chronic (5) History of CVA (cerebrovascular accident) Onset Date: Unknown Current Visit: Yes Status: Chronic Subjective - Subjective Date of service: 09/26/18 Principal diagnosis: IUP @ 21 5/7 weeks; Chronic hypertension; Chest pain Interval history: Pt is a 42yo BF EGA 21 5/7 wks YUNIER 02/02/19 was admitted from [facility], maternal medicine due to uncontrolled hypertension on 09/23/18 . She has a history of chronic hypertension and stroke. She is followed by a complaints coordinator Rafy Mcneill in [place]. On admission she felt substernal chest pain at rest. It was previously recommended to obtain Cardiology consult during this admission . She currently denies chest pain, SOB, VB, ABD pain , calf pain , LOF, and BP's have improved while on Labetolol. She has been evaluated by the Hospitalist, and Chalk Tester. This morning she has no complaints - headaches resolved. Patient reports: movement normal, no new complaints, no loss of fluid, no vaginal bleeding, no contractions Objective - Vital Signs Vital Signs: Vital Signs - 12hr 09/26/18 09/26/18 09/26/18 01:27 02:00 03:00 Temperature Pulse Rate 80 95 H 85 Respiratory Rate Blood Pressure 181/84 108/55 135/67 Blood Pressure [Left] 09/26/18 09/26/18 09/26/18 04:00 05:00 06:00 Temperature Pulse Rate 95 H 86 83 Respiratory Rate Blood Pressure 130/75 160/77 139/69 Blood Pressure [Left] 09/26/18 09/26/18 09/26/18 07:00 07:45 07:54 Temperature 97.4 F L Pulse Rate 86 88 88 Respiratory 16 Rate Blood Pressure 166/84 158/78 Blood Pressure 158/78 [Left] 09/26/18 09/26/18 09/26/18 08:00 09:01 09:59 Temperature Pulse Rate 100 H 88 Respiratory Rate Blood Pressure 150/76 162/75 165/89 Blood Pressure [Left] 09/26/18 09/26/18 09/26/18 10:01 11:00 12:00 Temperature Pulse Rate 83 72 75 Respiratory Rate Blood Pressure 165/89 148/78 146/76 Blood Pressure [Left] - Exam Uterus: Present: normal FHR: category 1 Uterine Contraction Monitor Mode: External - Labs Labs: Abnormal Labs 09/23/18 09/23/18 09/23/18 16:08 16:08 20:18 RDW 15.4 H AST 43 H Lactate Dehydrogenase 466 H Total Creatine Kinase Ur Total Protein 24 Hr 300.00 H Urine Total Protein 20 H 09/24/18 09/24/18 05:37 05:37 RDW 15.6 H AST Lactate Dehydrogenase Total Creatine Kinase 26 L Ur Total Protein 24 Hr Urine Total Protein
--- NOTE | 2018-09-26 16:03 | Progress Note ---
Assessment and Plan Chest pain resolved Adriano negative for AMI ECG with no acute ischemic changes. stable cardiac status okay to discharge home today patient will follow up with carton stenciler as outpatient Dr. Bryant Mcneill CAD nonobstructive Hypertension CVA 2010 Subjective Date of service: 09/26/18 Principal diagnosis: IUP @ 21 5/7 weeks; Chronic hypertension; Chest pain Interval history: Pt sitting up in bed with no complaints Objective Vital Signs Temp Pulse Resp BP BP 09/26/18 16:00 87 140/78 09/26/18 15:00 94 H 123/61 09/26/18 14:07 97 F L 83 16 141/70 09/26/18 14:02 83 141/70 09/26/18 12:00 75 146/76 09/26/18 11:00 72 148/78 09/26/18 10:01 83 165/89 09/26/18 09:59 165/89 09/26/18 09:01 88 162/75 09/26/18 08:00 100 H 150/76 09/26/18 07:54 97.4 F L 88 16 158/78 09/26/18 07:45 88 158/78 09/26/18 07:00 86 166/84 09/26/18 06:00 83 139/69 09/26/18 05:00 86 160/77 09/26/18 04:00 95 H 130/75 09/26/18 03:00 85 135/67 09/26/18 02:00 95 H 108/55 09/26/18 01:27 80 181/84 09/25/18 23:06 78 138/65 09/25/18 21:01 76 150/70 09/25/18 19:25 97.8 F 77 18 135/63 09/25/18 18:46 75 179/99 09/25/18 18:09 97.6 F 09/25/18 17:46 83 141/86 09/25/18 16:46 75 187/107 - Physical Examination HEENT: Positive: PERRL, Normocephaly, Mucus Membranes Moist Neck: Positive: neck supple, trachea midline Cardiac: Positive: Reg Rate and Rhythm Lungs: Positive: Normal Exam, Normal Breath Sounds Neuro: Positive: Grossly Intact Abdomen: Negative: Tender Skin: Positive: Clear. Negative: Rash, Wound Musculoskeletal: No Pain Extremities: Absent: edema - Imaging and Cardiology EKG: report reviewed, image reviewed Echo: pending - EKG Sinus rhythms and dysrhythmias: sinus rhythm Chamber hypertrophy or enlargement: left ventricular hypertro
[2018-09-26 17:01] VITALS: BP 147/74
--- NOTE | 2018-09-26 17:40 | Discharge Summary ---
Providers - Providers Date of Admission: 09/23/18 20:14 Date of discharge: 09/26/18 Attending physician: IWONA DALTON 09/23/18 23:27 Consult to Physician [CONS] Urgent Comment: Consulting Provider: GISELL GRESHAM Physician Instructions: Reason For Exam: chest pain, hypertension, history of stroke 09/24/18 10:40 Consult to Physician [CONS] Routine Comment: Consulting Provider: BECKA AMES Physician Instructions: Reason For Exam: IUP @ 21 3/7 weeks; Chronic hypertension 09/24/18 13:59 Consult to Cardiology [CONS] Urgent Consulting Provider: Reason For Exam: IUP @ 21 weeks; Chest pains Primary care physician: IWONA DALTON Hospitalization Reason for admission: IUP - , other (IUP @ 21 2/7 weeks; Chronic hypertension; Chest pain) Other procedures: none complications: none Discharge diagnosis: other (IUP @ 21 5/7 weeks; Chronic hypertension; Chest pain - resolved) Pertinent studies: ECG with No acute ischemic changes. Cardiac enzymes Negative for Acute RI Hospital course: Pt is a 42yo BF EGA 21 5/7 wks YUNIER 02/02/19 was admitted from [facility], maternal medicine due to uncontrolled hypertension on 09/23/18 . She has a history of chronic hypertension and stroke. 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 Jeffery Baron in [place]. On admission she felt substernal chest pain at rest. It was previously recommended to obtain Cardiology consult during this admission . She currently denies chest pain, SOB, VB, ABD pain , calf pain , LOF, and BP's have improved while on Labetolol. She has been evaluated by the Hospitalist, and Surgical Attendant - Cardiac enzymes were negative for Acute RI , and ECG with no acute ischemic changes. This morning she has no complaints - headaches resolved, and she has now been cleared by the Surgical Attendant for discharge home and to follow up with Dr Jeffery Baron this week. Condition at discharge: Good Disposition: DC-01 TO HOME OR SELFCARE - Discharge Diagnoses (1) 21 weeks gestation of Status: Chronic (2) Advanced maternal age (AMA), 40 years or greater Status: Chronic (3) Chest pain Status: Resolved Qualifiers: Ischemic chest pain type: unspecified angina pectoris type (4) Chronic hypertension affecting Status: Chronic (5) History of CVA (cerebrovascular accident) Status: Chronic Plan - Discharge Medications Prescriptions: Labetalol [Normodyne TAB] 300 mg PO BID #90 tablet - Provider Discharge Summary Activity: routine, no sex for 6 weeks, no heavy lifting 4 weeks, no strenuous exercise Diet: routine Instructions: routine Additional instructions: [] Smoking cessation referral if applicable(refer to patient education folder for contact #) [] Refer to [facility] Booklet Call your doctor immediately for: * Fever > 100.5 * Heavy vaginal bleeding ( >1 pad per hour) * Severe persistent headache * Shortness of breath * Reddened, hot, painful area to leg or breast * Drainage or odor from incision. * Keep incision clean and dry at all times and follow doctor's instructions regarding bathing/showering - Follow up plan Follow up: IWONA DALTON MD [Primary Care Provider] - 7 Days BECKA AMES MD [Staff Physician] - 7 Days JEFFERY BARON MD [Referring] - 7 Days
== END 2018-09-26 18:50 | disposition home or self-care (01) | DRG 781 ==
LOC: TRG 13:33 → OBSVTOIN 20:14 → LD 20:14
PROVIDERS: ADMIT Obstetrics & Gynecology; ATTEND Obstetrics & Gynecology
DX: O10.912 Unspecified pre-existing hypertension complicating pregnancy, second trimester (principal); O99.412 Diseases of the circulatory system complicating pregnancy, second trimester; I25.119 Atherosclerotic heart disease of native coronary artery with unspecified angina pectoris; I69.351 Hemiplegia and hemiparesis following cerebral infarction affecting right dominant side; Z3A.21 21 weeks gestation of pregnancy; Z82.49 Family history of ischemic heart disease and other diseases of the circulatory system; Z79.82 Long term (current) use of aspirin; Z79.899 Other long term (current) drug therapy; O09.522 Supervision of elderly multigravida, second trimester
CPT/HCPCS: 36415; 59025; 81001; 82550; 82553; 82565; 83615; 84156; 84450; 84460; 84484; 84550; 85027; 86850; 86900; 86901; 93005; 93010; 96360; 96365; G0378; J0360; J1644; J1885; J2405; J7120

== ENCOUNTER 2018-11-22 11:50 | Outpatient (CLI) | payer MEDICAID ==
[2018-11-22 12:30] LABS: Bacteria,Urine 2+ /HPF (Negative); Bilirubin,Urine NEG (Negative); Blood,Urine NEG (Negative); Color,Urine Yellow (Yellow); Mucus,Urine 1+ /HPF
[2018-11-22 13:48] LABS: Basophils % (Auto) 0.4 % (0.0-1.8); Eosinophils % (Auto) 0.2 % (0.0-4.3); Hematocrit 31.9 % (30.3-42.9); Hemoglobin 10.5 gm/dl (10.1-14.3); Lymphocytes # (Auto) 1.4 K/mm3 (1.2-5.4); Lymphocytes % (Auto) 13.4 % (13.4-35.0); Mean Corpuscular HGB Conc 33 % (30-34); Mean Corpuscular Volume 87 fl (79-97); Monocytes # (Auto) 0.5 K/mm3 (0.0-0.8); Monocytes % (Auto) 4.3 % (0.0-7.3); Platelet Count 276 K/mm3 (140-440); Red Blood Count 3.67 M/mm3 (3.65-5.03); Red Cell Distribution Width 15.7 % (13.2-15.2)
[2018-11-22 14:01] LABS: Alanine Aminotransferase 9 units/L (7-56); Albumin 2.9 g/dL (3.9-5); BUN/Creatinine Ratio 7; Blood Urea Nitrogen 4 mg/dL (7-17); Calcium 8.6 mg/dL (8.4-10.2); Hemolysis Index 52; Uric Acid 5.7 mg/dL (3.5-7.6)
[2018-11-22 14:46] VITALS: BP 158/74
== END 2018-11-22 15:07 | disposition home or self-care (01) ==
LOC: TRG 11:50
PROVIDERS: ATTEND Obstetrics & Gynecology
DX: O47.03 False labor before 37 completed weeks of gestation, third trimester (principal); O10.013 Pre-existing essential hypertension complicating pregnancy, third trimester; Z3A.29 29 weeks gestation of pregnancy
CPT/HCPCS: 36415; 80053; 81001; 84550; 85025

== ENCOUNTER 2018-11-23 13:44 | Inpatient (IN) | payer MEDICAID ==
[2018-11-23] MEDS ORDERED: LACTATED RINGERS 500 ML IV ONE (14:55)
[2018-11-23] MEDS ORDERED: APRESOLINE IV ONE (14:56)
[2018-11-23] MEDS ORDERED: MAGNESIUM SULFATE 4GM/100ML 4 GM/100 ML BAG IV ONE (14:57)
[2018-11-23] MEDS ORDERED: ZOFRAN IV ONE (14:57)
[2018-11-23] MEDS ORDERED: MAGNESIUM SULFATE 40GM/1000ML 40 GM/1,000 ML BAG IV SCH (15:00)
[2018-11-23 15:28] LABS: Basophils # (Auto) 0.1 K/mm3 (0.0-0.1); Basophils % (Auto) 0.5 % (0.0-1.8); Eosinophils % (Auto) 0.1 % (0.0-4.3); Hematocrit 32.4 % (30.3-42.9); Hemoglobin 10.9 gm/dl (10.1-14.3); Lymphocytes # (Auto) 1.4 K/mm3 (1.2-5.4); Lymphocytes % (Auto) 10.5 % (13.4-35.0); Mean Corpuscular HGB Conc 34 % (30-34); Mean Corpuscular Volume 84 fl (79-97); Monocytes # (Auto) 0.5 K/mm3 (0.0-0.8); Platelet Count 305 K/mm3 (140-440); Red Blood Count 3.88 M/mm3 (3.65-5.03); Red Cell Distribution Width 14.9 % (13.2-15.2)
[2018-11-23] MEDS: LACTATED RINGERS 1,000 ML IV SCH (15:30)
[2018-11-23 15:47] LABS: Alanine Aminotransferase 8 units/L (7-56); Uric Acid 6.3 mg/dL (3.5-7.6)
[2018-11-23] MEDS ORDERED: NORMODYNE IV ONE (16:00)
--- NOTE | 2018-11-23 16:55 | History and Physical Report ---
History of Present Illness Date of examination: 11/23/18 Date of admission: 11/23/18 14:55 Chief complaint: Elevated BP's with headache History of present illness: Pt is a 43yo BF EDC 02/01/19; EGA 30 0/7 weeks presents from [facility] for evaluation of elevated BP's 206/106 in the office. She received care at [facility] and co-managed by [facility] for Chronic hypertension, AMA and history of stroke. She was on labetolol 200mg BID, Clonidine 0.1mg prn and Low dose aspirin. She has a mild headache and denies blurred vision. BPP in office was 8/8 and SOHA 13.47cm Past History Past Medical History: hypertension Past Surgical History: no surgical history Family/Genetic History: none Social history: no significant social history, - Obstetrical History Expected Date of Delivery: 02/01/19 Actual Gestation: 30 Week(s) 1 Day(s) : 4 Medications and Allergies Allergies Allergy/AdvReac Type Severity Reaction Status Date / Time No Known Allergies Allergy Verified 11/23/18 14:54 Home Medications Medication Instructions Recorded Confirmed Last Taken Type Aspirin [Lo-Dose Aspirin EC] 81 mg PO DAILY 09/23/18 11/23/18 09/23/18 05:00 History Ferrous Sulfate [Iron] 325 mg PO DAILY 09/23/18 11/23/18 09/23/18 05:00 History Vit-Fe Fumar-FA [ 1 tab PO QDAY 09/23/18 11/23/18 09/23/18 05:00 History Vitamin] cloNIDine [Catapres] 0.1 mg PO PRN 09/23/18 11/23/18 Unknown History Labetalol [Normodyne TAB] 300 mg PO BID #90 tablet 09/26/18 11/23/18 Unknown Rx Active Meds: Active Medications Magnesium Sulfate (Magnesium Sulfate 40gm/1000ml) 40 gm in 1,000 mls @ 50 mls/hr IV DIRECT MARIA D Lactated Ringer's (Lactated Ringers) 1,000 mls @ 75 mls/hr IV DIRECT MARIA D Last Admin: 11/23/18 15:30 Dose: 75 mls/hr Documented by: Review of Systems All systems: negative - Vital Signs Vital signs: Vital Signs Pulse BP 96 H 224/113 11/23/18 14:33 11/23/18 14:33 Temp Pulse Resp BP Pulse Ox 91 H 162/81 11/23/18 16:39 11/23/18 16:39 - Physical Exam Breasts: Positive: deferred Cardiovascular: Regular rate Lungs: Positive: Clear to auscultation Abdomen: Positive: normal appearance Genitourinary (Female): Positive: normal external genitalia Uterus: Positive: enlarged Extremities: Positive: normal - Obstetrical FHR: category 1 Uterine Contraction Monitor Mode: External Uterine Contraction Pattern: Absent Results Result Diagrams: 11/23/18 15:05 11/23/18 15:05 Abnormal lab results 11/23/18 11/23/18 Range/Units 15:05 15:05 WBC 13.3 H (4.5-11.0) K/mm3 Lymph % (Auto) 10.5 L (13.4-35.0) % Seg Neutrophils % 84.9 H (40.0-70.0) % Seg Neutrophils # 11.3 H (1.8-7.7) K/mm3 Creatinine 0.6 L (0.7-1.2) mg/dL All other labs normal. Ultrasound: report reviewed Assessment and Plan - Patient Problems (1) 30 weeks gestation of Onset Date: 11/23/18 Current Visit: Yes Status: Acute Plan to address problem: A: IUP @ 30 0/7 weeks Chronic hypertension - uncontrolled Preeclampsia AMA History of stroke P: Admit to L&D for BP monitoring Will begin IV Magnesium sulfate; IV Labetolol prn; IV Hydralazine prn Obtain PIH labs and 24hour urine Steroids for FLM APA/NICU consultation (2) Advanced maternal age (AMA), 40 years or greater Onset Date: ~09/24/18 Current Visit: No Status: Chronic (3) Chronic hypertension affecting Onset Date: ~09/23/18 Current Visit: No Status: Chronic (4) History of CVA (cerebrovascular accident) Onset Date: Unknown Current Visit: No Status: Chronic
[2018-11-23] MEDS ORDERED: MILK OF MAGNESIA PO PRN (17:00)
[2018-11-23 17:14] LABS: Bacteria,Urine 1+ /HPF (Negative); Bilirubin,Urine NEG (Negative); Blood,Urine NEG (Negative); Color,Urine Straw (Yellow); Mucus,Urine FEW /HPF; Protein,Urine <15 mg/dL mg/dL (Negative); RBC,Urine < 1.0 /HPF (0.0-6.0); Urobilinogen,Urine < 2.0 mg/dL (<2.0); WBC,Urine < 1.0 /HPF (0.0-6.0)
[2018-11-23] MEDS: APRESOLINE IV PRN ×2 (17:44→18:59)
[2018-11-23] MEDS: TYLENOL PO PRN ×2 (17:59→21:15)
[2018-11-23] MEDS ORDERED: AMPICILLIN/NS 2 GM/100 ML 2 GM/100 ML BAG IV ONE (18:00)
[2018-11-23] MEDS ORDERED: CELESTONE SOLUSPAN IM SCH (18:00)
[2018-11-23] MEDS: CATAPRES PO PRN (19:28)
--- NOTE | 2018-11-23 19:35 | Consultation ---
History of Present Illness Consult date: 11/23/18 Requesting physician: IWONA DALTON Reason for consult: prematurity History of present illness: EGA 30 weeker [place] Documentation - information: Height 5 ft 1 in Medications and Allergies Allergies Allergy/AdvReac Type Severity Reaction Status Date / Time No Known Allergies Allergy Verified 11/23/18 14:54 Home Medications Medication Instructions Recorded Confirmed Last Taken Type Aspirin [Lo-Dose Aspirin EC] 81 mg PO DAILY 09/23/18 11/23/18 09/23/18 05:00 History Ferrous Sulfate [Iron] 325 mg PO DAILY 09/23/18 11/23/18 09/23/18 05:00 History Vit-Fe Fumar-FA [ 1 tab PO QDAY 09/23/18 11/23/18 09/23/18 05:00 History Vitamin] cloNIDine [Catapres] 0.1 mg PO PRN 09/23/18 11/23/18 Unknown History Labetalol [Normodyne TAB] 300 mg PO BID #90 tablet 09/26/18 11/23/18 Unknown Rx Active Meds: Active Medications Acetaminophen (Tylenol) 650 mg PO Q4H PRN PRN Reason: Pain MILD(1-3)/Fever >100.5/ALMODOVAR Last Admin: 11/23/18 17:59 Dose: 650 mg Documented by: Betamethasone Acet/Betameth SodPhos (Celestone Soluspan) 12 mg IM Q24H MARIA D Stop: 11/24/18 18:01 Clonidine HCl (Catapres) 0.1 mg PO Q4H PRN PRN Reason: Blood Pressure Docusate Sodium (Colace) 100 mg PO Q12H PRN PRN Reason: Constipation Hydralazine HCl (Apresoline) 10 mg IV Q30MIN PRN PRN Reason: Blood Pressure Last Admin: 11/23/18 18:59 Dose: 10 mg Documented by: Magnesium Sulfate (Magnesium Sulfate 40gm/1000ml) 40 gm in 1,000 mls @ 50 mls/hr IV DIRECT MARIA D Lactated Ringer's (Lactated Ringers) 1,000 mls @ 75 mls/hr IV DIRECT MARIA D Last Admin: 11/23/18 15:30 Dose: 75 mls/hr Documented by: Ampicillin Sodium (Ampicillin/Ns 1 Gm/50 Ml) 1 gm in 50 mls @ 100 mls/hr IV Q4H MARIA D; Protocol Labetalol HCl (Normodyne) 10 mg IV Q30MIN PRN PRN Reason: Blood Pressure Magnesium Hydroxide (Milk Of Magnesia) 30 ml PO QHS PRN PRN Reason: Laxative Effect Multivitamins/Iron/Calcium ( Vitamin) 1 each PO QDAY MARIA D Ondansetron HCl (Zofran) 4 mg IV Q6H PRN PRN Reason: Nausea And Vomiting Exam Vital Signs Pulse BP 96 H 224/113 11/23/18 14:33 11/23/18 14:33 Temp Pulse Resp BP Pulse Ox 116 H 200/95 11/23/18 19:09 11/23/18 19:09 Results - Laboratory Findings 11/23/18 15:05 11/23/18 15:05 Abnormal lab results 11/23/18 11/23/18 Range/Units 15:05 15:05 WBC 13.3 H (4.5-11.0) K/mm3 Lymph % (Auto) 10.5 L (13.4-35.0) % Seg Neutrophils % 84.9 H (40.0-70.0) % Seg Neutrophils # 11.3 H (1.8-7.7) K/mm3 Creatinine 0.6 L (0.7-1.2) mg/dL Assessment and Plan : Eren Lyons EGA: 30 0/7 weeker EDC: 02/01/2019 Discussed with mother of need for head CUS, ROP exams, respiratory support (possible need for CPAP, intubation, curosurf as indicated if requiring more support), UVC placement, IVF, NG tube-enteral feeds, temperature regulation/humidification in isolette, and survival rate. Mother expressed interest in breast feeding. Reassured mother that NICU team will attend delivery. Mother verbalized understanding and has no further questions. Plan: Betamethasone ampicillin NICU to attend delivery
[2018-11-23] MEDS: NORMODYNE IV PRN (19:38)
[2018-11-23] MEDS: DECADRON IM SCH (21:16)
[2018-11-23] MEDS: NORMODYNE PO SCH (21:16)
[2018-11-23] MEDS ORDERED: PERCOCET 5/325 PO ONE (21:40)
[2018-11-23] MEDS: AMPICILLIN/NS 1 GM/50 ML 1 GM/50 ML BAG IV SCH (21:55)
--- NOTE | 2018-11-24 00:52 | Cat Scan Report ---
COMPUTED TOMOGRAPHY, HEAD, WITHOUT. CLINICAL STATEMENT: Severe headache, patient. COMPARISON: None available. TECHNIQUE: Non-contrast CT brain. MPR. Overall image quality is satisfactory. COMMENTS: BONE - Calvarium: Intact. Central skull base: Intact. Temporal mastoids: No effusion. Included paranasal sinuses: Well aerated. Mucosal thickening of the maxillary sinuses. Mild posterior ethmoid air cell consolidation. CSF SPACES - Ventricles: Normal. Subarachnoid spaces: Normal. BRAIN - 1.6 x 1.2 cm hypodense region located at the lateral caudate nucleus/anterior globus pallidus on the left. No mass effect or midline shift. Punctated bilateral calcifications in the globus pallidus. No acute intracranial bleed. IMPRESSION: 1. 1.6 x 1.2 cm hypodense lesion in the left caudate/anterior medial globus pallidus. Density is vesna r isodense with fluid. Differential diagnosis includes vascular lesion, chronic ischemia, neuroepith elial cyst or cystic neoplasm. Correlation with clinical exam and history requested. Recommended dedi cated brain MRI for further evaluation. Note: Given patient's status, no gadolinium contra st should be administered). 2. No acute intracranial hemorrhage. This document is electronically signed by Yasmany Funk DO., November 24 2018 12:50:24 AM ET
[2018-11-24] MEDS: AMPICILLIN/NS 1 GM/50 ML 1 GM/50 ML BAG IV SCH ×3 (02:15→09:41)
[2018-11-24] MEDS: APRESOLINE IV PRN ×2 (06:15→13:58)
[2018-11-24] MEDS: LACTATED RINGERS 1,000 ML IV SCH (06:15)
[2018-11-24] MEDS ORDERED: PERCOCET 5/325 PO ONE (08:30)
[2018-11-24] MEDS: PRENATAL VITAMIN PO SCH (09:41)
[2018-11-24] MEDS: NORMODYNE PO SCH ×2 (09:42→17:48)
[2018-11-24] MEDS: DECADRON IM SCH ×2 (11:57→21:49)
[2018-11-24] MEDS: CATAPRES PO PRN (12:04)
[2018-11-24] MEDS: ALUM-MAG HYDROX-SIMETH 200-200-20MG/5ML PO PRN (12:05)
[2018-11-24] MEDS: COLACE PO PRN ×2 (12:05→21:52)
--- NOTE | 2018-11-24 13:50 | Consultation ---
History of Present Illness Consult date: 11/24/18 Requesting physician: IWONA DALTON History of present illness: Ms. Dawit Jason is a 43yo BF EDC 02/01/19; EGA 30 1/7 weeks sent in 11/23/18 from [facility] for evaluation of elevated BP's 206/106 in the office BP's in House 168/91, 135/80 (after clonidine per patient) 161/84, 191/95, 174/84 [facility] Labs - WNL - AST/ALT at 12/8 Plts at 305 H/H at 10.9/32 Urine UA spot Prot < 15 24 Hour Urine Prot - pending CT Brain Are normal. 1.6 x 1.7 cm Hypodense lesion in left caudate/anterior medial glomus pallidus Differential chronic ischemia, neuroepithelial cyst or cystic neoplasm Recommend brain MRI without contrast APA UA 11/23/18 - BPP 8/8 with SOHA at 13.47 cm She received care at [facility] and co-managed by [facility] for Chronic hypertension, AMA and history of stroke and also reports h/o coronary artery ds - had cath in Mar and stent was "not necessary" She was on labetolol 200mg BID, Clonidine 0.1mg prn and Low dose aspirin. Reports ALMODOVAR's - N/V, No vag bleeding leaking of ctx's Pos FM's Past History Past Medical History: hypertension Past Surgical History: no surgical history Family/Genetic History: none - Obstetrical History : 4 Medications and Allergies Allergies Allergy/AdvReac Type Severity Reaction Status Date / Time No Known Allergies Allergy Verified 11/23/18 14:54 Home Medications Medication Instructions Recorded Confirmed Last Taken Type Aspirin [Lo-Dose Aspirin EC] 81 mg PO DAILY 09/23/18 11/23/18 09/23/18 05:00 History Ferrous Sulfate [Iron] 325 mg PO DAILY 09/23/18 11/23/18 09/23/18 05:00 History Vit-Fe Fumar-FA [ 1 tab PO QDAY 09/23/18 11/23/18 09/23/18 05:00 History Vitamin] cloNIDine [Catapres] 0.1 mg PO PRN 09/23/18 11/23/18 Unknown History Labetalol [Normodyne TAB] 300 mg PO BID #90 tablet 09/26/18 11/23/18 Unknown Rx Active Meds: Active Medications Acetaminophen (Tylenol) 650 mg PO Q4H PRN PRN Reason: Pain MILD(1-3)/Fever >100.5/ALMODOVAR Last Admin: 11/23/18 21:15 Dose: 650 mg Documented by: Al Hydrox/Mg Hydrox/Simethicone (Alum-Mag Hydrox-Simeth [id number]/5ml) 30 ml PO Q4H PRN PRN Reason: Indigestion Last Admin: 11/24/18 12:05 Dose: 30 ml Documented by: Clonidine HCl (Catapres) 0.1 mg PO Q4H PRN PRN Reason: Blood Pressure Last Admin: 11/24/18 12:04 Dose: 0.1 mg Documented by: Dexamethasone (Decadron) 6 mg IM Q12H MARIA D Stop: 11/25/18 09:01 Last Admin: 11/24/18 11:57 Dose: 6 mg Documented by: Docusate Sodium (Colace) 100 mg PO Q12H PRN PRN Reason: Constipation Last Admin: 11/24/18 12:05 Dose: 100 mg Documented by: Hydralazine HCl (Apresoline) 10 mg IV Q30MIN PRN PRN Reason: Blood Pressure Last Admin: 11/24/18 06:15 Dose: 10 mg Documented by: Magnesium Sulfate (Magnesium Sulfate 40gm/1000ml) 40 gm in 1,000 mls @ 50 mls/hr IV DIRECT MARIA D Lactated Ringer's (Lactated Ringers) 1,000 mls @ 75 mls/hr IV DIRECT MARIA D Last Admin: 11/24/18 06:15 Dose: 75 mls/hr Documented by: Ampicillin Sodium (Ampicillin/Ns 1 Gm/50 Ml) 1 gm in 50 mls @ 100 mls/hr IV Q4H MARIA D; Protocol Last Admin: 11/24/18 09:41 Dose: 100 mls/hr Documented by: Labetalol HCl (Normodyne) 10 mg IV Q30MIN PRN PRN Reason: Blood Pressure Last Admin: 11/23/18 19:38 Dose: 10 mg Documented by: Labetalol HCl (Normodyne) 200 mg PO BID [facility] Last Admin: 11/24/18 09:42 Dose: 200 mg Documented by: Magnesium Hydroxide (Milk Of Magnesia) 30 ml PO QHS PRN PRN Reason: Laxative Effect Multivitamins/Iron/Calcium ( Vitamin) 1 each PO QDAY [facility] Last Admin: 11/24/18 09:41 Dose: 1 each Documented by: Ondansetron HCl (Zofran) 4 mg IV Q6H PRN PRN Reason: Nausea And Vomiting - Vital Signs Vital signs: Vital Signs Pulse BP 96 H 224/113 11/23/18 14:33 11/23/18 14:33 Temp Pulse Resp BP Pulse Ox 97.8 F 98 H 16 168/91 89 11/24/18 08:38 11/24/18 13:33 11/24/18 08:38 11/24/18 13:17 11/24/18 13:33 Results Result Diagrams: 11/23/18 15:05 11/23/18 15:05 Abnormal lab results 11/23/18 11/23/18 11/23/18 Range/Units 15:05 15:05 22:04 WBC 13.3 H (4.5-11.0) K/mm3 Lymph % (Auto) 10.5 L (13.4-35.0) % Seg Neutrophils % 84.9 H (40.0-70.0) % Seg Neutrophils # 11.3 H (1.8-7.7) K/mm3 Creatinine 0.6 L (0.7-1.2) mg/dL Magnesium 4.80 H (1.7-2.3) mg/dL 11/24/18 11/24/18 11/24/18 Range/Units 00:33 05:55 10:55 WBC (4.5-11.0) K/mm3 Lymph % (Auto) (13.4-35.0) % Seg Neutrophils % (40.0-70.0) % Seg Neutrophils # (1.8-7.7) K/mm3 Creatinine (0.7-1.2) mg/dL Magnesium 5.30 H 6.60 H 5.30 H (1.7-2.3) mg/dL All other labs normal. Assessment and Plan . 1. Lauren IUP at 30 1/7 weeks 2. CHTN with Elevated BP's R/O superimposed preeclampsia within normal 3. H/O Stroke 4. Reports H/O Coronary Artery Ds 5. MO 6. Brain CT - 1.6 X 1.2 hypodense lesion in Left Caudate/anterior medial globus pallidus 7. AMA Recommendations 1. 24 Hour urine pending 2. Steroids for FLM if not given 3. NICU consult 4. Neurology consult for evaluation of Brain CT discovered hypodense lesion and h/o stroke 5. BPP twice per week while in house 6. EFM q shift 7. Increase labetalol from 200 BID to 300 TID PO 8. IV hydralazine for BP's sys > 160 or wesley > 110
--- NOTE | 2018-11-24 13:52 | Progress Note ---
Subjective Date of service: 11/24/18 Interval history: my assessment from the CT is this is from prior ischemic stroke from HTN there is hx of stroke would recommend MRI without contrast and continue good BP control Objective - Vital Sign Vital Signs - 12hr 11/24/18 11/24/18 11/24/18 01:52 02:08 02:23 Temperature Pulse Rate 79 75 77 Respiratory Rate Blood Pressure 162/89 180/88 158/94 Blood Pressure [Right] O2 Sat by Pulse Oximetry 11/24/18 11/24/18 11/24/18 02:38 02:55 02:56 Temperature Pulse Rate 77 80 78 Respiratory Rate Blood Pressure 143/86 167/92 Blood Pressure [Right] O2 Sat by Pulse 96 Oximetry 11/24/18 11/24/18 11/24/18 02:57 03:01 03:05 Temperature Pulse Rate 82 91 H 77 Respiratory Rate Blood Pressure Blood Pressure [Right] O2 Sat by Pulse 94 96 94 Oximetry 11/24/18 11/24/18 11/24/18 03:06 03:07 03:11 Temperature Pulse Rate 81 77 81 Respiratory Rate Blood Pressure 171/93 Blood Pressure [Right] O2 Sat by Pulse 96 94 Oximetry 11/24/18 11/24/18 11/24/18 03:16 03:17 03:21 Temperature Pulse Rate 82 77 77 Respiratory Rate Blood Pressure Blood Pressure [Right] O2 Sat by Pulse 95 94 96 Oximetry 11/24/18 11/24/18 11/24/18 03:23 03:26 03:28 Temperature Pulse Rate 77 88 78 Respiratory Rate Blood Pressure Blood Pressure [Right] O2 Sat by Pulse 94 96 94 Oximetry 11/24/18 11/24/18 11/24/18 03:31 03:33 03:36 Temperature Pulse Rate 77 82 78 Respiratory Rate Blood Pressure Blood Pressure [Right] O2 Sat by Pulse 93 94 93 Oximetry 11/24/18 11/24/18 11/24/18 03:41 03:46 03:48 Temperature Pulse Rate 81 80 80 Respiratory Rate Blood Pressure 161/94 Blood Pressure [Right] O2 Sat by Pulse 96 95 93 Oximetry 11/24/18 11/24/18 11/24/18 03:51 03:54 03:56 Temperature Pulse Rate 81 81 79 Respiratory Rate Blood Pressure Blood Pressure [Right] O2 Sat by Pulse 95 94 92 Oximetry 0311/24/18 11/24/18 04:00 04:01 04:05 Temperature 98.3 F Pulse Rate 100 H 79 80 Respiratory 18 Rate Blood Pressure Blood Pressure 146/89 [Right] O2 Sat by Pulse 100 94 94 Oximetry 11/24/18 11/24/18 11/24/18 04:06 04:11 04:16 Temperature Pulse Rate 92 H 80 82 Respiratory Rate Blood Pressure 146/89 Blood Pressure [Right] O2 Sat by Pulse 95 94 95 Oximetry 11/24/18 11/24/18 11/24/18 04:17 04:21 04:23 Temperature Pulse Rate 84 90 82 Respiratory Rate Blood Pressure Blood Pressure [Right] O2 Sat by Pulse 94 95 94 Oximetry 11/24/18 11/24/18 11/24/18 04:26 04:31 04:32 Temperature Pulse Rate 80 80 82 Respiratory Rate Blood Pressure Blood Pressure [Right] O2 Sat by Pulse 96 96 94 Oximetry 11/24/18 11/24/18 11/24/18 04:36 04:38 04:41 Temperature Pulse Rate 82 89 82 Respiratory Rate Blood Pressure Blood Pressure [Right] O2 Sat by Pulse 96 94 94 Oximetry 11/24/18 11/24/18 11/24/18 04:45 04:46 04:47 Temperature Pulse Rate 91 H 90 90 Respiratory Rate Blood Pressure 172/95 Blood Pressure [Right] O2 Sat by Pulse 94 96 Oximetry 11/24/18 11/24/18 11/24/18 04:51 04:56 05:01 Temperature Pulse Rate 90 91 H 85 Respiratory Rate Blood Pressure Blood Pressure [Right] O2 Sat by Pulse 95 96 96 Oximetry 11/24/18 11/24/18 11/24/18 05:03 05:06 05:08 Temperature Pulse Rate 88 82 87 Respiratory Rate Blood Pressure Blood Pressure [Right] O2 Sat by Pulse 94 94 94 Oximetry 11/24/18 11/24/18 11/24/18 05:11 05:16 05:21 Temperature Pulse Rate 82 82 86 Respiratory Rate Blood Pressure 172/94 Blood Pressure [Right] O2 Sat by Pulse 96 94 96 Oximetry 11/24/18 11/24/18 11/24/18 05:22 05:26 05:28 Temperature Pulse Rate 81 85 82 Respiratory Rate Blood Pressure Blood Pressure [Right] O2 Sat by Pulse 94 94 94 Oximetry 0311/24/18 11/24/18 05:31 05:36 05:41 Temperature Pulse Rate 82 86 78 Respiratory Rate Blood Pressure Blood Pressure [Right] O2 Sat by Pulse 96 95 94 Oximetry 11/24/18 11/24/18 11/24/18 05:45 05:46 05:51 Temperature Pulse Rate 80 80 82 Respiratory Rate Blood Pressure 171/97 Blood Pressure [Right] O2 Sat by Pulse 94 94 Oximetry 11/24/18 11/24/18 11/24/18 05:53 05:56 06:01 Temperature Pulse Rate 78 79 83 Respiratory Rate Blood Pressure Blood Pressure [Right] O2 Sat by Pulse 94 95 96 Oximetry 11/24/18 11/24/18 11/24/18 06:06 06:07 06:11 Temperature Pulse Rate 80 80 85 Respiratory Rate Blood Pressure Blood Pressure [Right] O2 Sat by Pulse 96 94 95 Oximetry 11/24/18 11/24/18 11/24/18 06:13 06:15 06:16 Temperature Pulse Rate 83 100 H 87 Respiratory Rate Blood Pressure 178/98 Blood Pressure [Right] O2 Sat by Pulse 94 96 Oximetry 11/24/18 11/24/18 11/24/18 06:21 06:26 06:31 Temperature Pulse Rate 88 83 92 H Respiratory Rate Blood Pressure Blood Pressure [Right] O2 Sat by Pulse 96 96 96 Oximetry 11/24/18 11/24/18 11/24/18 06:36 06:38 06:41 Temperature Pulse Rate 75 78 82 Respiratory Rate Blood Pressure Blood Pressure [Right] O2 Sat by Pulse 96 93 95 Oximetry 11/24/18 11/24/18 11/24/18 06:45 06:46 06:47 Temperature Pulse Rate 78 81 81 Respiratory Rate Blood Pressure 135/70 Blood Pressure [Right] O2 Sat by Pulse 95 94 Oximetry 11/24/18 11/24/18 11/24/18 06:51 06:55 06:56 Temperature Pulse Rate 81 83 81 Respiratory Rate Blood Pressure Blood Pressure [Right] O2 Sat by Pulse 95 94 95 Oximetry 11/24/18 11/24/18 11/24/18 07:01 07:03 07:06 Temperature Pulse Rate 83 83 79 Respiratory Rate Blood Pressure Blood Pressure [Right] O2 Sat by Pulse 95 94 95 Oximetry 11/24/18 11/24/18 11/24/18 07:11 07:14 07:15 Temperature Pulse Rate 75 77 74 Respiratory Rate Blood Pressure 136/66 Blood Pressure [Right] O2 Sat by Pulse 95 94 Oximetry 11/24/18 11/24/18 11/24/18 07:16 07:21 07:22 Temperature Pulse Rate 78 79 76 Respiratory Rate Blood Pressure Blood Pressure [Right] O2 Sat by Pulse 96 94 95 Oximetry 11/24/18 11/24/18 11/24/18 07:26 07:27 07:32 Temperature Pulse Rate 76 89 86 Respiratory Rate Blood Pressure Blood Pressure [Right] O2 Sat by Pulse 94 96 95 Oximetry 11/24/18 11/24/18 11/24/18 07:37 07:42 07:45 Temperature Pulse Rate 85 74 78 Respiratory Rate Blood Pressure 141/72 Blood Pressure [Right] O2 Sat by Pulse 96 96 94 Oximetry 11/24/18 11/24/18 11/24/18 07:47 07:50 07:52 Temperature Pulse Rate 74 77 77 Respiratory Rate Blood Pressure Blood Pressure [Right] O2 Sat by Pulse 95 94 94 Oximetry 11/24/18 11/24/18 11/24/18 07:56 07:57 08:02 Temperature Pulse Rate 77 75 84 Respiratory Rate Blood Pressure Blood Pressure [Right] O2 Sat by Pulse 94 94 97 Oximetry 11/24/18 11/24/18 11/24/18 08:05 08:07 08:12 Temperature Pulse Rate 77 83 80 Respiratory Rate Blood Pressure Blood Pressure [Right] O2 Sat by Pulse 94 96 97 Oximetry 11/24/18 11/24/18 11/24/18 08:15 08:17 08:21 Temperature Pulse Rate 83 83 78 Respiratory Rate Blood Pressure 144/68 Blood Pressure [Right] O2 Sat by Pulse 96 94 Oximetry 11/24/18 11/24/18 11/24/18 08:22 08:27 08:32 Temperature Pulse Rate 78 78 79 Respiratory Rate Blood Pressure Blood Pressure [Right] O2 Sat by Pulse 96 96 98 Oximetry 11/24/18 11/24/18 11/24/18 08:37 08:38 08:42 Temperature 97.8 F Pulse Rate 92 H 87 Respiratory 16 Rate Blood Pressure Blood Pressure [Right] O2 Sat by Pulse 95 98 Oximetry 11/24/18 11/24/18 11/24/18 08:45 08:47 08:52 Temperature Pulse Rate 83 85 83 Respiratory Rate Blood Pressure 148/81 Blood Pressure [Right] O2 Sat by Pulse 98 98 Oximetry 11/24/18 11/24/18 11/24/18 08:57 09:02 09:07 Temperature Pulse Rate 81 85 83 Respiratory Rate Blood Pressure Blood Pressure [Right] O2 Sat by Pulse 98 98 98 Oximetry 11/24/18 11/24/18 11/24/18 09:09 09:12 09:16 Temperature Pulse Rate 76 84 85 Respiratory Rate Blood Pressure 161/80 Blood Pressure [Right] O2 Sat by Pulse 93 99 Oximetry 11/24/18 11/24/18 11/24/18 09:17 09:22 09:27 Temperature Pulse Rate 84 85 77 Respiratory Rate Blood Pressure Blood Pressure [Right] O2 Sat by Pulse 98 97 97 Oximetry 11/24/18 11/24/18 11/24/18 09:32 09:37 09:42 Temperature Pulse Rate 79 82 85 Respiratory Rate Blood Pressure 161/80 Blood Pressure [Right] O2 Sat by Pulse 97 97 97 Oximetry 11/24/18 11/24/18 11/24/18 09:47 09:52 09:55 Temperature Pulse Rate 89 93 H 96 H Respiratory Rate Blood Pressure Blood Pressure [Right] O2 Sat by Pulse 98 98 94 Oximetry 11/24/18 11/24/18 11/24/18 09:57 10:02 10:07 Temperature Pulse Rate 89 89 89 Respiratory Rate Blood Pressure Blood Pressure [Right] O2 Sat by Pulse 99 98 97 Oximetry 11/24/18 11/24/18 11/24/18 10:12 10:16 10:17 Temperature Pulse Rate 78 89 79 Respiratory Rate Blood Pressure 171/85 Blood Pressure [Right] O2 Sat by Pulse 97 97 Oximetry 11/24/18 11/24/18 11/24/18 10:22 10:27 10:32 Temperature Pulse Rate 84 83 92 H Respiratory Rate Blood Pressure Blood Pressure [Right] O2 Sat by Pulse 98 96 96 Oximetry 11/24/18 11/24/18 11/24/18 10:37 10:42 10:46 Temperature Pulse Rate 92 H 93 H 82 Respiratory Rate Blood Pressure 177/94 Blood Pressure [Right] O2 Sat by Pulse 97 97 Oximetry 11/24/18 11/24/18 11/24/18 10:47 10:52 10:57 Temperature Pulse Rate 94 H 81 83 Respiratory Rate Blood Pressure Blood Pressure [Right] O2 Sat by Pulse 97 96 97 Oximetry 11/24/18 11/24/18 11/24/18 11:02 11:07 11:12 Temperature Pulse Rate 86 86 86 Respiratory Rate Blood Pressure Blood Pressure [Right] O2 Sat by Pulse 96 96 96 Oximetry 11/24/18 11/24/18 11/24/18 11:15 11:16 11:17 Temperature Pulse Rate 86 85 90 Respiratory Rate Blood Pressure 174/89 Blood Pressure [Right] O2 Sat by Pulse 94 95 Oximetry 11/24/18 11/24/18 11/24/18 11:22 11:23 11:27 Temperature Pulse Rate 87 86 93 H Respiratory Rate Blood Pressure Blood Pressure [Right] O2 Sat by Pulse 95 94 94 Oximetry 11/24/18 11/24/18 11/24/18 11:28 11:32 11:37 Temperature Pulse Rate 88 89 99 H Respiratory Rate Blood Pressure Blood Pressure [Right] O2 Sat by Pulse 94 94 95 Oximetry 11/24/18 11/24/18 11/24/18 11:39 11:42 11:44 Temperature Pulse Rate 82 87 87 Respiratory Rate Blood Pressure Blood Pressure [Right] O2 Sat by Pulse 94 94 94 Oximetry 11/24/18 11/24/18 11/24/18 11:45 11:47 11:52 Temperature Pulse Rate 84 89 87 Respiratory Rate Blood Pressure 191/95 Blood Pressure [Right] O2 Sat by Pulse 95 97 Oximetry 11/24/18 11/24/18 11/24/18 11:57 12:02 12:04 Temperature Pulse Rate 86 100 H 99 H Respiratory Rate Blood Pressure 191/95 Blood Pressure [Right] O2 Sat by Pulse 96 94 Oximetry 11/24/18 11/24/18 11/24/18 12:05 12:07 12:12 Temperature Pulse Rate 99 H 107 H 104 H Respiratory Rate Blood Pressure 174/84 Blood Pressure [Right] O2 Sat by Pulse 97 96 Oximetry 11/24/18 11/24/18 11/24/18 12:15 12:17 12:22 Temperature Pulse Rate 91 H 94 H 99 H Respiratory Rate Blood Pressure 161/84 Blood Pressure [Right] O2 Sat by Pulse 96 95 Oximetry 11/24/18 11/24/18 11/24/18 12:27 12:32 12:37 Temperature Pulse Rate 97 H 93 H 91 H Respiratory Rate Blood Pressure Blood Pressure [Right] O2 Sat by Pulse 97 96 95 Oximetry 11/24/18 11/24/18 11/24/18 12:40 12:42 12:45 Temperature Pulse Rate 91 H 90 88 Respiratory Rate Blood Pressure 135/80 Blood Pressure [Right] O2 Sat by Pulse 94 95 Oximetry 11/24/18 11/24/18 11/24/18 12:46 12:47 12:52 Temperature Pulse Rate 89 87 84 Respiratory Rate Blood Pressure Blood Pressure [Right] O2 Sat by Pulse 94 94 95 Oximetry 11/24/18 11/24/18 11/24/18 12:56 12:57 13:02 Temperature Pulse Rate 86 89 92 H Respiratory Rate Blood Pressure Blood Pressure [Right] O2 Sat by Pulse 94 95 95 Oximetry 11/24/18 11/24/18 11/24/18 13:07 13:12 13:17 Temperature Pulse Rate 96 H 94 H 85 Respiratory Rate Blood Pressure 168/91 Blood Pressure [Right] O2 Sat by Pulse 96 96 95 Oximetry 11/24/18 11/24/18 11/24/18 13:22 13:27 13:32 Temperature Pulse Rate 89 110 H 93 H Respiratory Rate Blood Pressure Blood Pressure [Right] O2 Sat by Pulse 96 96 97 Oximetry 11/24/18 13:33 Temperature Pulse Rate 98 H Respiratory Rate Blood Pressure Blood Pressure [Right] O2 Sat by Pulse 89 Oximetry - Laboratory Findings CBC and BMP: 11/23/18 15:05 11/23/18 15:05 Abnormal Lab Findings: Abnormal Labs 11/23/18 11/23/18 11/23/18 15:05 15:05 22:04 WBC 13.3 H Lymph % (Auto) 10.5 L Seg Neutrophils % 84.9 H Seg Neutrophils # 11.3 H Creatinine 0.6 L Magnesium 4.80 H 11/24/18 11/24/18 11/24/18 00:33 05:55 10:55 WBC Lymph % (Auto) Seg Neutrophils % Seg Neutrophils # Creatinine Magnesium 5.30 H 6.60 H 5.30 H
[2018-11-24] MEDS: ZOFRAN IV PRN (13:54)
--- NOTE | 2018-11-24 16:38 | Magnetic Resonance Report ---
PROCEDURE: MR BRAIN WO CON TECHNIQUE: MRI brain without contrast HISTORY: seizure COMPARISONS: Correlation is made to a prior CT of November 23, 2018 FINDINGS: At the left caudate head there is a 0.9 cm fluid signal intensity focus corresponding to area noted o n prior CT. There is some surrounding increased T2 signal. No evidence for acute diffusion restrictio n. No hemorrhagic components are observed. Additionally noted are scattered small foci of increased T 2 signal throughout the supratentorial white matter bilaterally measuring proximally 0.5 cm or less. No generalized brain edema pattern noted. Ventricles and sulci are within normal limits. Vascular tara w voids are unremarkable. Brainstem and posterior fossa structures are unremarkable. IMPRESSION: Versus fluid signal intensity focus at the left caudate head. Appearance is most consistent with founder jefry ischemic change Scattered spinal nonspecific white matter foci of increased T2 signal most suggestive of small vessel ischemic changes.. This document is electronically signed by Galo Osullivan MD., November 24 2018 04:35:38 PM ET
[2018-11-24] MEDS: NORMODYNE IV PRN (17:30)
--- NOTE | 2018-11-24 20:27 | Progress Note ---
Assessment and Plan - Patient Problems (1) 30 weeks gestation of Onset Date: 11/23/18 Current Visit: Yes Status: Acute Plan to address problem: A: IUP @ 30 1/7 weeks Chronic hypertension - improved Preeclampsia - BP's improved AMA History of stroke - with old ischemic lesions on MRI P: Continue BP monitoring Completed IV Magnesium sulfate; Labetolol increased to 300mg TID and IV Hydralazine prn Obtain serial PIH labs and 24hour urine Steroids for FLM in progress [facility]/NICU consultation done Neurology consultation done (2) Advanced maternal age (AMA), 40 years or greater Onset Date: ~09/24/18 Current Visit: No Status: Chronic (3) Chronic hypertension affecting Onset Date: ~09/23/18 Current Visit: No Status: Chronic (4) History of CVA (cerebrovascular accident) Onset Date: Unknown Current Visit: No Status: Chronic Subjective - Subjective Date of service: 11/24/18 Principal diagnosis: IUP @ 30 1/7 weeks; Preeclampsia; Brain lesion Interval history: Pt is a 43yo BF EDC 02/01/19; EGA 30 1/7 weeks who presented from [facility] for evaluation of elevated BP's 206/106 in the office. She received care at [facility] and co-managed by [facility] for Chronic hypertension, AMA and history of stroke. She was on labetolol 200mg BID, now increased to 300mg TID per [facility], and Clonidine 0.1mg prn and Low dose aspirin. She had a severe headache last night - now improved with Percocet, and currently on IV Magnesium sulfate and IV Hydralazine for BP control. CT Scan showed a 1.6 x 1.2cm brain lesion for which Neurology was consulted. MRI consistent with chronic ischemic changes. PIH labs are WNL and 24hour urine is pending. Patient reports: movement normal, no new complaints, no loss of fluid, no vaginal bleeding, no contractions Objective - Vital Signs Vital Signs: Vital Signs - 12hr 11/24/18 11/24/18 11/24/18 08:21 08:22 08:27 Temperature Pulse Rate 78 78 78 Respiratory Rate Blood Pressure O2 Sat by Pulse 94 96 96 Oximetry 11/24/18 11/24/18 11/24/18 08:32 08:37 08:38 Temperature 97.8 F Pulse Rate 79 92 H Respiratory 16 Rate Blood Pressure O2 Sat by Pulse 98 95 Oximetry 11/24/18 11/24/18 11/24/18 08:42 08:45 08:47 Temperature Pulse Rate 87 83 85 Respiratory Rate Blood Pressure 148/81 O2 Sat by Pulse 98 98 Oximetry 11/24/18 11/24/18 11/24/18 08:52 08:57 09:02 Temperature Pulse Rate 83 81 85 Respiratory Rate Blood Pressure O2 Sat by Pulse 98 98 98 Oximetry 11/24/18 11/24/18 11/24/18 09:07 09:09 09:12 Temperature Pulse Rate 83 76 84 Respiratory Rate Blood Pressure O2 Sat by Pulse 98 93 99 Oximetry 11/24/18 11/24/18 11/24/18 09:16 09:17 09:22 Temperature Pulse Rate 85 84 85 Respiratory Rate Blood Pressure 161/80 O2 Sat by Pulse 98 97 Oximetry 11/24/18 11/24/18 11/24/18 09:27 09:32 09:37 Temperature Pulse Rate 77 79 82 Respiratory Rate Blood Pressure O2 Sat by Pulse 97 97 97 Oximetry 11/24/18 11/24/18 11/24/18 09:42 09:47 09:52 Temperature Pulse Rate 85 89 93 H Respiratory Rate Blood Pressure 161/80 O2 Sat by Pulse 97 98 98 Oximetry 11/24/18 11/24/18 11/24/18 09:55 09:57 10:02 Temperature Pulse Rate 96 H 89 89 Respiratory Rate Blood Pressure O2 Sat by Pulse 94 99 98 Oximetry 11/24/18 11/24/18 11/24/18 10:07 10:12 10:16 Temperature Pulse Rate 89 78 89 Respiratory Rate Blood Pressure 171/85 O2 Sat by Pulse 97 97 Oximetry 11/24/18 11/24/18 11/24/18 10:17 10:22 10:27 Temperature Pulse Rate 79 84 83 Respiratory Rate Blood Pressure O2 Sat by Pulse 97 98 96 Oximetry 11/24/18 11/24/18 11/24/18 10:32 10:37 10:42 Temperature Pulse Rate 92 H 92 H 93 H Respiratory Rate Blood Pressure O2 Sat by Pulse 96 97 97 Oximetry 11/24/18 11/24/18 11/24/18 10:46 10:47 10:52 Temperature Pulse Rate 82 94 H 81 Respiratory Rate Blood Pressure 177/94 O2 Sat by Pulse 97 96 Oximetry 11/24/18 11/24/18 11/24/18 10:57 11:02 11:07 Temperature Pulse Rate 83 86 86 Respiratory Rate Blood Pressure O2 Sat by Pulse 97 96 96 Oximetry 11/24/18 11/24/18 11/24/18 11:12 11:15 11:16 Temperature Pulse Rate 86 86 85 Respiratory Rate Blood Pressure 174/89 O2 Sat by Pulse 96 94 Oximetry 11/24/18 11/24/18 11/24/18 11:17 11:22 11:23 Temperature Pulse Rate 90 87 86 Respiratory Rate Blood Pressure O2 Sat by Pulse 95 95 94 Oximetry 11/24/18 11/24/18 11/24/18 11:27 11:28 11:32 Temperature Pulse Rate 93 H 88 89 Respiratory Rate Blood Pressure O2 Sat by Pulse 94 94 94 Oximetry 11/24/18 11/24/18 11/24/18 11:37 11:39 11:42 Temperature Pulse Rate 99 H 82 87 Respiratory Rate Blood Pressure O2 Sat by Pulse 95 94 94 Oximetry 11/24/18 11/24/18 11/24/18 11:44 11:45 11:47 Temperature Pulse Rate 87 84 89 Respiratory Rate Blood Pressure 191/95 O2 Sat by Pulse 94 95 Oximetry 11/24/18 11/24/18 11/24/18 11:52 11:57 12:02 Temperature Pulse Rate 87 86 100 H Respiratory Rate Blood Pressure O2 Sat by Pulse 97 96 94 Oximetry 11/24/18 11/24/18 11/24/18 12:04 12:05 12:07 Temperature Pulse Rate 99 H 99 H 107 H Respiratory Rate Blood Pressure 191/95 174/84 O2 Sat by Pulse 97 Oximetry 11/24/18 11/24/18 11/24/18 12:12 12:15 12:17 Temperature Pulse Rate 104 H 91 H 94 H Respiratory Rate Blood Pressure 161/84 O2 Sat by Pulse 96 96 Oximetry 11/24/18 11/24/18 11/24/18 12:22 12:27 12:32 Temperature Pulse Rate 99 H 97 H 93 H Respiratory Rate Blood Pressure O2 Sat by Pulse 95 97 96 Oximetry 11/24/18 11/24/18 11/24/18 12:37 12:40 12:42 Temperature Pulse Rate 91 H 91 H 90 Respiratory Rate Blood Pressure O2 Sat by Pulse 95 94 95 Oximetry 11/24/18 11/24/18 11/24/18 12:45 12:46 12:47 Temperature Pulse Rate 88 89 87 Respiratory Rate Blood Pressure 135/80 O2 Sat by Pulse 94 94 Oximetry 11/24/18 11/24/18 11/24/18 12:52 12:56 12:57 Temperature Pulse Rate 84 86 89 Respiratory Rate Blood Pressure O2 Sat by Pulse 95 94 95 Oximetry 11/24/18 11/24/18 11/24/18 13:02 13:07 13:12 Temperature Pulse Rate 92 H 96 H 94 H Respiratory Rate Blood Pressure O2 Sat by Pulse 95 96 96 Oximetry 11/24/18 11/24/18 11/24/18 13:17 13:22 13:27 Temperature Pulse Rate 85 89 110 H Respiratory Rate Blood Pressure 168/91 O2 Sat by Pulse 95 96 96 Oximetry 11/24/18 11/24/18 11/24/18 13:32 13:33 13:52 Temperature Pulse Rate 93 H 98 H 98 H Respiratory Rate Blood Pressure 170/98 O2 Sat by Pulse 97 89 Oximetry 11/24/18 11/24/18 11/24/18 13:58 14:00 14:05 Temperature Pulse Rate 99 H 100 H 102 H Respiratory Rate Blood Pressure 170/98 O2 Sat by Pulse 97 97 Oximetry 11/24/18 11/24/18 11/24/18 14:10 14:15 14:20 Temperature Pulse Rate 102 H 97 H 104 H Respiratory Rate Blood Pressure 159/86 O2 Sat by Pulse 97 97 97 Oximetry 11/24/18 11/24/18 11/24/18 14:25 14:30 14:35 Temperature Pulse Rate 98 H 98 H 96 H Respiratory Rate Blood Pressure O2 Sat by Pulse 97 97 96 Oximetry 11/24/18 11/24/18 11/24/18 14:40 14:45 14:50 Temperature Pulse Rate 93 H 96 H 98 H Respiratory Rate Blood Pressure 163/84 O2 Sat by Pulse 96 96 97 Oximetry 11/24/18 11/24/18 11/24/18 14:55 15:00 15:05 Temperature Pulse Rate 94 H 104 H 108 H Respiratory Rate Blood Pressure O2 Sat by Pulse 97 97 97 Oximetry 11/24/18 11/24/18 11/24/18 15:10 15:15 15:16 Temperature Pulse Rate 96 H 102 H 93 H Respiratory Rate Blood Pressure 179/88 O2 Sat by Pulse 97 97 Oximetry 11/24/18 11/24/18 11/24/18 15:20 15:25 17:05 Temperature Pulse Rate 95 H 107 H 92 H Respiratory Rate Blood Pressure O2 Sat by Pulse 97 99 76 L Oximetry 11/24/18 11/24/18 11/24/18 17:08 17:11 17:30 Temperature Pulse Rate 100 H 100 H Respiratory Rate Blood Pressure 191/97 191/97 O2 Sat by Pulse 91 Oximetry 11/24/18 11/24/18 11/24/18 17:39 17:44 17:48 Temperature Pulse Rate 95 H 94 H 94 H Respiratory Rate Blood Pressure 204/97 151/90 151/90 O2 Sat by Pulse Oximetry 11/24/18 11/24/18 11/24/18 17:53 18:08 18:23 Temperature Pulse Rate 90 94 H 108 H Respiratory Rate Blood Pressure 166/79 203/105 195/108 O2 Sat by Pulse Oximetry 11/24/18 11/24/18 11/24/18 18:40 18:53 19:10 Temperature Pulse Rate 95 H 94 H 94 H Respiratory Rate Blood Pressure 209/113 200/98 173/79 O2 Sat by Pulse Oximetry 11/24/18 11/24/18 11/24/18 19:23 19:38 19:53 Temperature Pulse Rate 93 H 92 H 97 H Respiratory Rate Blood Pressure 156/69 153/70 143/65 O2 Sat by Pulse Oximetry 11/24/18 20:08 Temperature Pulse Rate 97 H Respiratory Rate Blood Pressure 160/74 O2 Sat by Pulse Oximetry - Exam Cardiovascular: Regular rate Lungs: Clear to auscultation Abdomen: Present: normal appearance, soft Uterus: Present: normal FHR: category 1 Uterine Contraction Monitor Mode: External Uterine Contraction Pattern: Absent - Labs Labs: Abnormal Labs 11/23/18 11/23/18 11/23/18 15:05 15:05 22:04 WBC 13.3 H Lymph % (Auto) 10.5 L Seg Neutrophils % 84.9 H Seg Neutrophils # 11.3 H Creatinine 0.6 L Magnesium 4.80 H Ur Total Protein 24 Hr Urine Total Protein 11/24/18 11/24/18 11/24/18 00:33 05:55 10:55 WBC Lymph % (Auto) Seg Neutrophils % Seg Neutrophils # Creatinine Magnesium 5.30 H 6.60 H 5.30 H Ur Total Protein 24 Hr Urine Total Protein 11/24/18 16:05 WBC Lymph % (Auto) Seg Neutrophils % Seg Neutrophils # Creatinine Magnesium Ur Total Protein 24 Hr 799.50 H Urine Total Protein 39 H Laboratory Results - last 24 hr 11/23/18 11/24/18 11/24/18 22:04 00:33 05:55 Magnesium 4.80 H 5.30 H 6.60 H Urine Total Volume Ur Total Protein 24 Hr Urine Total Protein 11/24/18 11/24/18 10:55 16:05 Magnesium 5.30 H Urine Total Volume 2050 Ur Total Protein 24 Hr 799.50 H Urine Total Protein 39 H - Results US- obstetric: report reviewed
[2018-11-24] MEDS: FIORICET PO PRN (21:59)
[2018-11-25] MEDS: NORMODYNE PO SCH ×4 (01:32→22:18)
[2018-11-25] MEDS: APRESOLINE IV PRN ×2 (08:09→20:39)
--- NOTE | 2018-11-25 08:20 | Progress Note ---
Subjective Date of service: 11/25/18 Principal diagnosis: IUP @ 30 1/ weeks; Preeclampsia; Brain lesion Interval history: spoke to patient at length and in 2010 she had well described ischemic stroke classical right hemiparesis and aphasia wevry good recovery since then with no seizures or any compliications around 2017 dx of mild coronary disease and advanced small vessel disease cardiology tx/ed with niacin and BP control and since then excellnt level of dfunction she is stable neuro lockhart and CT to me is only ischemic stroke no risk for seizures... BP control is best approach does not need Elliquis or drugs of the NCOA class IMO Thanks Objective - Vital Sign Vital Signs - 12hr 11/24/18 11/24/18 11/24/18 20:23 20:38 20:53 Temperature Pulse Rate 104 H 94 H 99 H Respiratory Rate Blood Pressure 175/81 177/84 151/76 O2 Sat by Pulse Oximetry 11/24/18 11/24/18 11/24/18 21:05 21:08 21:23 Temperature 98.3 F Pulse Rate 95 H 96 H Respiratory 18 Rate Blood Pressure 162/80 141/77 O2 Sat by Pulse Oximetry 11/24/18 11/24/18 11/24/18 21:38 21:53 22:55 Temperature Pulse Rate 90 97 H 94 H Respiratory Rate Blood Pressure 165/78 170/79 138/67 O2 Sat by Pulse Oximetry 11/24/18 11/25/18 11/25/18 23:55 01:20 01:23 Temperature 98.8 F Pulse Rate 82 86 Respiratory 18 Rate Blood Pressure 166/75 190/89 O2 Sat by Pulse Oximetry 11/25/18 11/25/18 11/25/18 01:32 01:55 02:43 Temperature Pulse Rate 86 90 86 Respiratory Rate Blood Pressure 190/89 222/119 171/86 O2 Sat by Pulse Oximetry 11/25/18 11/25/18 11/25/18 02:54 03:54 04:35 Temperature Pulse Rate 89 87 Respiratory Rate Blood Pressure 171/83 144/79 O2 Sat by Pulse 92 Oximetry 11/25/18 11/25/18 11/25/18 04:36 04:41 04:46 Temperature Pulse Rate 97 H 86 83 Respiratory Rate Blood Pressure O2 Sat by Pulse 95 94 93 Oximetry 11/25/18 11/25/18 11/25/18 04:50 04:51 04:55 Temperature Pulse Rate 84 75 86 Respiratory Rate Blood Pressure 180/86 O2 Sat by Pulse 94 95 Oximetry 11/25/18 11/25/18 11/25/18 04:56 04:57 05:01 Temperature Pulse Rate 85 85 87 Respiratory Rate Blood Pressure O2 Sat by Pulse 96 94 94 Oximetry 11/25/18 11/25/18 11/25/18 05:03 05:06 05:09 Temperature Pulse Rate 88 89 88 Respiratory Rate Blood Pressure O2 Sat by Pulse 94 94 94 Oximetry 11/25/18 11/25/18 11/25/18 05:11 05:14 05:16 Temperature Pulse Rate 82 77 98 H Respiratory Rate Blood Pressure O2 Sat by Pulse 94 93 93 Oximetry 11/25/18 11/25/18 11/25/18 05:21 05:26 05:27 Temperature Pulse Rate 83 73 88 Respiratory Rate Blood Pressure O2 Sat by Pulse 93 90 94 Oximetry 11/25/18 11/25/18 11/25/18 05:31 05:34 05:36 Temperature Pulse Rate 85 65 54 L Respiratory Rate Blood Pressure O2 Sat by Pulse 94 93 92 Oximetry 11/25/18 11/25/18 11/25/18 05:40 05:41 05:45 Temperature Pulse Rate 110 H 86 78 Respiratory Rate Blood Pressure O2 Sat by Pulse 94 95 94 Oximetry 11/25/18 11/25/18 11/25/18 07:19 07:49 07:52 Temperature Pulse Rate 90 93 H 98 H Respiratory Rate Blood Pressure 149/81 176/84 166/78 O2 Sat by Pulse Oximetry 11/25/18 11/25/18 08:09 08:14 Temperature Pulse Rate 98 H 91 H Respiratory Rate Blood Pressure 166/78 O2 Sat by Pulse 96 Oximetry - Laboratory Findings CBC and BMP: 11/23/18 15:05 11/23/18 15:05 Abnormal Lab Findings: Abnormal Labs 11/23/18 11/23/18 11/23/18 15:05 15:05 22:04 WBC 13.3 H Lymph % (Auto) 10.5 L Seg Neutrophils % 84.9 H Seg Neutrophils # 11.3 H Creatinine 0.6 L Magnesium 4.80 H Ur Total Protein 24 Hr Urine Total Protein 11/24/18 11/24/18 11/24/18 00:33 05:55 10:55 WBC Lymph % (Auto) Seg Neutrophils % Seg Neutrophils # Creatinine Magnesium 5.30 H 6.60 H 5.30 H Ur Total Protein 24 Hr Urine Total Protein 11/24/18 16:05 WBC Lymph % (Auto) Seg Neutrophils % Seg Neutrophils # Creatinine Magnesium Ur Total Protein 24 Hr 799.50 H Urine Total Protein 39 H
[2018-11-25] MEDS: DECADRON IM SCH (10:24)
[2018-11-25] MEDS: PRENATAL VITAMIN PO SCH (10:24)
[2018-11-25] MEDS: FIORICET PO PRN (11:13)
--- NOTE | 2018-11-25 12:09 | Progress Note ---
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 - stable per Neurology P: Continue BP monitoring S/P IV Magnesium sulfate S/P Steroids for FLM Awaiting [facility] consultation BPP tomorrow (2) Advanced maternal age (AMA), 40 years or greater Onset Date: ~09/24/18 Current Visit: No Status: Chronic (3) Chronic hypertension affecting Onset Date: ~09/23/18 Current Visit: No Status: Chronic (4) History of CVA (cerebrovascular accident) Onset Date: Unknown Current Visit: No Status: Chronic Subjective - Subjective Date of service: 11/25/18 Principal diagnosis: IUP @ 30 2/7 weeks; Preeclampsia; Brain lesion Interval history: Pt is a 43yo BF EDC 02/01/19; EGA 30 2/7 weeks who presented from [facility] for evaluation of elevated BP's 206/106 in the office. She received care at [facility] and co-managed by [facility] for Chronic hypertension, AMA and history of stroke. She is on labetolol 300mg TID, and Clonidine 0.1mg prn and Low dose aspirin. She had a severe headache - now improved with Fiorcet. CT Scan showed a 1.6 x 1.2cm brain lesion for which Neurology was consulted. MRI consistent with chronic ischemic changes. PIH labs are WNL and 24hour urine showed 799.50mg Protein. Patient reports: movement normal, no new complaints, no loss of fluid, no vaginal bleeding, no contractions Objective - Vital Signs Vital Signs: Vital Signs - 12hr 11/25/18 11/25/18 11/25/18 01:20 01:23 01:32 Temperature 98.8 F Pulse Rate 86 86 Respiratory 18 Rate Blood Pressure 190/89 190/89 Blood Pressure [Right] O2 Sat by Pulse Oximetry 11/25/18 11/25/18 11/25/18 01:55 02:43 02:54 Temperature Pulse Rate 90 86 89 Respiratory Rate Blood Pressure 222/119 171/86 171/83 Blood Pressure [Right] O2 Sat by Pulse Oximetry 11/25/18 11/25/18 11/25/18 03:54 04:35 04:36 Temperature Pulse Rate 87 97 H Respiratory Rate Blood Pressure 144/79 Blood Pressure [Right] O2 Sat by Pulse 92 95 Oximetry 11/25/18 11/25/18 11/25/18 04:41 04:46 04:50 Temperature Pulse Rate 86 83 84 Respiratory Rate Blood Pressure Blood Pressure [Right] O2 Sat by Pulse 94 93 94 Oximetry 11/25/18 11/25/18 11/25/18 04:51 04:55 04:56 Temperature Pulse Rate 75 86 85 Respiratory Rate Blood Pressure 180/86 Blood Pressure [Right] O2 Sat by Pulse 95 96 Oximetry 11/25/18 11/25/18 11/25/18 04:57 05:01 05:03 Temperature Pulse Rate 85 87 88 Respiratory Rate Blood Pressure Blood Pressure [Right] O2 Sat by Pulse 94 94 94 Oximetry 11/25/18 11/25/18 11/25/18 05:06 05:09 05:11 Temperature Pulse Rate 89 88 82 Respiratory Rate Blood Pressure Blood Pressure [Right] O2 Sat by Pulse 94 94 94 Oximetry 11/25/18 11/25/18 11/25/18 05:14 05:16 05:21 Temperature Pulse Rate 77 98 H 83 Respiratory Rate Blood Pressure Blood Pressure [Right] O2 Sat by Pulse 93 93 93 Oximetry 11/25/18 11/25/18 11/25/18 05:26 05:27 05:31 Temperature Pulse Rate 73 88 85 Respiratory Rate Blood Pressure Blood Pressure [Right] O2 Sat by Pulse 90 94 94 Oximetry 11/25/18 11/25/18 11/25/18 05:34 05:36 05:40 Temperature Pulse Rate 65 54 L 110 H Respiratory Rate Blood Pressure Blood Pressure [Right] O2 Sat by Pulse 93 92 94 Oximetry 11/25/18 11/25/18 11/25/18 05:41 05:45 07:19 Temperature Pulse Rate 86 78 90 Respiratory Rate Blood Pressure 149/81 Blood Pressure [Right] O2 Sat by Pulse 95 94 Oximetry 11/25/18 11/25/18 11/25/18 07:49 07:52 08:09 Temperature Pulse Rate 93 H 98 H 98 H Respiratory Rate Blood Pressure 176/84 166/78 166/78 Blood Pressure [Right] O2 Sat by Pulse Oximetry 11/25/18 11/25/18 11/25/18 08:14 08:16 08:48 Temperature 97.9 F Pulse Rate 91 H 98 H 104 H Respiratory 20 Rate Blood Pressure 134/65 Blood Pressure 166/78 [Right] O2 Sat by Pulse 96 96 Oximetry 11/25/18 11/25/18 11/25/18 09:18 09:49 09:55 Temperature Pulse Rate 113 H 109 H 107 H Respiratory Rate Blood Pressure 136/78 169/74 124/58 Blood Pressure [Right] O2 Sat by Pulse Oximetry 11/25/18 11/25/18 11/25/18 10:19 10:21 10:23 Temperature Pulse Rate 115 H 107 H 107 H Respiratory Rate Blood Pressure 95/51 141/63 141/63 Blood Pressure [Right] O2 Sat by Pulse Oximetry 11/25/18 11/25/18 11/25/18 10:48 11:18 11:48 Temperature Pulse Rate 104 H 99 H 84 Respiratory Rate Blood Pressure 140/72 147/78 143/92 Blood Pressure [Right] O2 Sat by Pulse Oximetry - Exam Cardiovascular: Regular rate Abdomen: Present: normal appearance, soft Uterus: Present: normal FHR: category 1 Uterine Contraction Monitor Mode: External Uterine Contraction Pattern: Absent - Labs Labs: Abnormal Labs 11/23/18 11/23/18 11/23/18 15:05 15:05 22:04 WBC 13.3 H Lymph % (Auto) 10.5 L Seg Neutrophils % 84.9 H Seg Neutrophils # 11.3 H Creatinine 0.6 L Magnesium 4.80 H Ur Total Protein 24 Hr Urine Total Protein 11/24/18 11/24/18 11/24/18 00:33 05:55 10:55 WBC Lymph % (Auto) Seg Neutrophils % Seg Neutrophils # Creatinine Magnesium 5.30 H 6.60 H 5.30 H Ur Total Protein 24 Hr Urine Total Protein 11/24/18 16:05 WBC Lymph % (Auto) Seg Neutrophils % Seg Neutrophils # Creatinine Magnesium Ur Total Protein 24 Hr 799.50 H Urine Total Protein 39 H Laboratory Results - last 24 hr 11/24/18 16:05 Urine Total Volume 2050 Ur Total Protein 24 Hr 799.50 H Urine Total Protein 39 H
--- NOTE | 2018-11-25 12:21 | Consultation ---
History of Present Illness Consult date: 11/25/18 Requesting physician: IWONA DALTON Reason for consult: gestational hypertension History of present illness: CURRENT PRESENTATION: Thank you for your recent consultation regarding the above named patient. As you are aware, this is a 43 year old para 3013 who presented following an ultrasound at [facility] due to poorly controlled hypertension. Patient has a history of advanced maternal age, chronic hypertension x 6 years, coronary artery disease and a history of strokes. Patient is currently 30 weeks 2 days based on an YUNIER of 02/01/19. Patient was told to come to the hospital for lab tests on an a 24 hour urine Patient was admitted with elevated blood pressure at 206/106 yesterday. During observation today the patient was noted to have labile blood pressures (see below). At the time of my evaluation the patient she admitted to headaches. She also had blurred vision but denied right upper quadrant pain. She was on labetolol 200mg BID, now increased to 300mg TID per [facility], and C lonidine 0.1mg prn and Low dose aspirin. She had a severe headache last night - now improved with Percocet, and currently on IV Magnesium sulfate and IV Hydralazine for BP control. CT Scan showed a 1.6 x 1.2cm brain lesion for which Neurology was consulted. MRI consistent with chronic ischemic changes. Patient was seen by Neurologist during this visit. Her blood pressure is improving. She continues to c/o headache. PAST OB HISTORY: 1992: at term. BW: 7 pounds 5 oz. complicated by 1997: at term. BW: 8 pounds 2 oz. 2001: at term. BW: 8 pounds 5 oz. VTOP x 1 PAST MEDICAL HISTORY: chronic hypertension x 6 years, advanced maternal age, coronary artery disease history of strokes. Baseline 24 hour urine: n/a Recent 24 hour urine: 799.50 mcg Patient denies diabetes or asthma Physical Exam on Evaluation: Admission BPs: 206/106 Current blood pressure: 124/58, 95/51, 141/63, 140/72 [facility] Ultrasonography * See reports in patients chart MRI: 1.6 x 1.2 cm hypodense lesion in the left caudate/anterior medial globus pallidus differential includes vascular lesion, chronic ischemia , neuroepithial cyst or cystic neoplasm. but no acute intracranial hemorrhage. c/w history of previous stroke. NEUROLOGY CONSULTATION: Spoke to patient at length and in 2010 she had well described ischemic stroke classical right hemiparesis and aphasia good recovery since then with no seizures or any complications around 2017 dx of mild coronary disease and advanced small vessel disease cardiology tx/ed with niacin and BP control and since then excellent level of function she is stable neuro lockhart and CT to me is only ischemic stroke no risk for seizures... BP control is best approach does not need Elliquis or drugs of the NCOA class IMO Available Admission Labs: See reports in patients hospital chart WBC: 13.3 HGB: 10.9 HCT: 32.4 PLT: 305 AST: 12 ALT: 8 Uric Acid: 6.3 LDH: 168 No serological evidence of HELLP 24 hour urine: 799.50 Past History Past Medical History: hypertension Past Surgical History: no surgical history Family/Genetic History: none - Obstetrical History : 4 Medications and Allergies Allergies Allergy/AdvReac Type Severity Reaction Status Date / Time No Known Allergies Allergy Verified 11/23/18 14:54 Home Medications Medication Instructions Recorded Confirmed Last Taken Type Aspirin [Lo-Dose Aspirin EC] 81 mg PO DAILY 09/23/18 11/23/18 09/23/18 05:00 History Ferrous Sulfate [Iron] 325 mg PO DAILY 09/23/18 11/23/18 09/23/18 05:00 History Vit-Fe Fumar-FA [ 1 tab PO QDAY 09/23/18 11/23/18 09/23/18 05:00 History Vitamin] cloNIDine [Catapres] 0.1 mg PO PRN 09/23/18 11/23/18 Unknown History Labetalol [Normodyne TAB] 300 mg PO BID #90 tablet 09/26/18 11/23/18 Unknown Rx Active Meds: Active Medications Acetaminophen (Tylenol) 650 mg PO Q4H PRN PRN Reason: Pain MILD(1-3)/Fever >100.5/ALMODOVAR Last Admin: 11/23/18 21:15 Dose: 650 mg Documented by: Acetaminophen/Butalbital/Caffeine (Fioricet) 2 tab PO Q4H PRN PRN Reason: Headache Last Admin: 11/25/18 11:13 Dose: 2 tab Documented by: Al Hydrox/Mg Hydrox/Simethicone (Alum-Mag Hydrox-Simeth [phone]/5ml) 30 ml PO Q4H PRN PRN Reason: Indigestion Last Admin: 11/24/18 12:05 Dose: 30 ml Documented by: Clonidine HCl (Catapres) 0.1 mg PO Q4H PRN PRN Reason: Blood Pressure Last Admin: 11/24/18 12:04 Dose: 0.1 mg Documented by: Docusate Sodium (Colace) 100 mg PO Q12H PRN PRN Reason: Constipation Last Admin: 11/24/18 21:52 Dose: 100 mg Documented by: Hydralazine HCl (Apresoline) 10 mg IV Q30MIN PRN PRN Reason: Blood Pressure Last Admin: 11/25/18 08:09 Dose: 10 mg Documented by: Labetalol HCl (Normodyne) 10 mg IV Q30MIN PRN PRN Reason: Blood Pressure Last Admin: 11/24/18 17:30 Dose: 10 mg Documented by: Labetalol HCl (Normodyne) 300 mg PO Q8HR MARIA D Last Admin: 11/25/18 10:23 Dose: 300 mg Documented by: Magnesium Hydroxide (Milk Of Magnesia) 30 ml PO QHS PRN PRN Reason: Laxative Effect Multivitamins/Iron/Calcium ( Vitamin) 1 each PO QDAY MARIA D Last Admin: 11/25/18 10:24 Dose: 1 each Documented by: Ondansetron HCl (Zofran) 4 mg IV Q6H PRN PRN Reason: Nausea And Vomiting Last Admin: 11/24/18 13:54 Dose: 4 mg Documented by: - Vital Signs Vital signs: Vital Signs Pulse BP 96 H 224/113 11/23/18 14:33 11/23/18 14:33 Temp Pulse Resp BP Pulse Ox 97.9 F 84 20 143/92 96 11/25/18 08:16 11/25/18 11:48 11/25/18 08:16 11/25/18 11:48 11/25/18 08:16 Results Result Diagrams: 11/23/18 15:05 11/23/18 15:05 Abnormal lab results 11/24/18 Range/Units 16:05 Ur Total Protein 24 Hr 799.50 H (2-200) mg/dL Urine Total Protein 39 H (5-11.8) mg/dL All other labs normal. Assessment and Plan ASSESSMENT * This 43 year old para 3013 admitted for in order to rule out superimposed preeclampsia. * Advanced maternal age, * Chronic hypertension x 6 years, * Coronary artery disease * History of strokes * Given the current gestational age, we would recommend optimizing the patients blood pressure with antihypertensive medications and delivery for signs and symptoms of severe superimposed preelcampsia (see below). RECOMMENDATIONS: Would proceed as follows: 1. Kindly follow-up the results of the patients 24 hour urinalysis. 2. PIH lab tests DO suggest severe preeclampsia or vs atypical HELLP 3. As you can imagine a confirmed diagnosis of SEVERE preeclampsia or HELLP would be an indication for delivery. 4. ANTI-HYPERTENSIVE MEDICATION: Labetalol (increased to 300 TID). 5. Neurology consultation appreciated. See above. 6. Our goal at present is to decrease blood pressure (while avoiding headache) to stabilize . 7. Proteinuria. 8. Patient continues to c/o headache; however may be due to new onset DECREASE in blood pressure from hospitalization (from 206/106 to 95/51) 9. Patient is NOT a candidate for DISCHARGE home. 10. We have administered steroids to enhance lung maturity. 11. Given her gestational age we would recommend DELIVERY only IF the patient had signs of unambiguously SEVERE preeclampsia. 12. Hydralazine PRN. 10 mg every 30 minutes for SBP > 160 or DBP > 105 x 3 doses HOLD HYDRALAZINE OR APRESSOLINE at this time. 13. Call [facility] for more than 3 dosages of Hydralazine in 24 hours. 14. Observe for improvement in blood pressure. 15. If the patient develops any of the criteria for delivery (see below) during observation we would recommend taking steps to deliver this . 16. Would proceed as follows: 17. Agree with admission for serial BP, urinalysis, PIH labs and observation. Kindly contact [facility] if there is any question as to whether this patient is a c andidate for delivery. At 30 weeks gestation; it would appear that there is some benefit to an expe ctant management protocol to prolong gestation in order to improve outcome without increasing maternal morbidity. In a patient with MILD preeclampsia we recommend DELIVERY at 37 weeks. In a patient with SEVERE preeclampsia we recommend DELIVERY either AT DIAGNOSIS or at 34 weeks gestation. Reference: REFERENCE: Medically indicated late- and early-term deliveries. Committee Opinion No. 560. [employer]. Obstet Gynecol 2013;121:82395. The indications for discontinuation of expectant management and DELIVERY in this patient would include ANY of the following: * heart rate abnormalities, (ie, bradycardia , repetitive late or variable decelerations) * Significant new onset proteinuria (see above) * Thrombocytopenia * Hemolysis, * Elevation in liver function tests * Blood pressure that is very labile or poorly controlled with reasonable doses of intravenous labetalol * growth restriction. * Symptoms of severe pre-eclampsia epigastric discomfort, headache, dizziness, blurred vision, RUQ pain, seizure. * Standard obstetrical indications Thank you for allowing us to participate in the care of this patient. We look forward to the opportunity to assist in her continued management. If you have any questions, we may be reached [phone]. Moise Portillo M.D.
--- NOTE | 2018-11-25 16:49 | Progress Note ---
Subjective Date of service: 11/25/18 Principal diagnosis: IUP @ 30 2/7 weeks; Preeclampsia; Brain lesion Interval history: MRI shows only chronic changes from ischemic stroke no tumor Objective - Vital Sign Vital Signs - 12hr 11/25/18 11/25/18 11/25/18 04:50 04:51 04:55 Temperature Pulse Rate 84 75 86 Respiratory Rate Blood Pressure 180/86 Blood Pressure [Right] O2 Sat by Pulse 94 95 Oximetry 11/25/18 11/25/18 11/25/18 04:56 04:57 05:01 Temperature Pulse Rate 85 85 87 Respiratory Rate Blood Pressure Blood Pressure [Right] O2 Sat by Pulse 96 94 94 Oximetry 11/25/18 11/25/18 11/25/18 05:03 05:06 05:09 Temperature Pulse Rate 88 89 88 Respiratory Rate Blood Pressure Blood Pressure [Right] O2 Sat by Pulse 94 94 94 Oximetry 11/25/18 11/25/18 11/25/18 05:11 05:14 05:16 Temperature Pulse Rate 82 77 98 H Respiratory Rate Blood Pressure Blood Pressure [Right] O2 Sat by Pulse 94 93 93 Oximetry 11/25/18 11/25/18 11/25/18 05:21 05:26 05:27 Temperature Pulse Rate 83 73 88 Respiratory Rate Blood Pressure Blood Pressure [Right] O2 Sat by Pulse 93 90 94 Oximetry 11/25/18 11/25/18 11/25/18 05:31 05:34 05:36 Temperature Pulse Rate 85 65 54 L Respiratory Rate Blood Pressure Blood Pressure [Right] O2 Sat by Pulse 94 93 92 Oximetry 11/25/18 11/25/18 11/25/18 05:40 05:41 05:45 Temperature Pulse Rate 110 H 86 78 Respiratory Rate Blood Pressure Blood Pressure [Right] O2 Sat by Pulse 94 95 94 Oximetry 11/25/18 11/25/18 11/25/18 07:19 07:49 07:52 Temperature Pulse Rate 90 93 H 98 H Respiratory Rate Blood Pressure 149/81 176/84 166/78 Blood Pressure [Right] O2 Sat by Pulse Oximetry 11/25/18 11/25/18 11/25/18 08:09 08:14 08:16 Temperature 97.9 F Pulse Rate 98 H 91 H 98 H Respiratory 20 Rate Blood Pressure 166/78 Blood Pressure 166/78 [Right] O2 Sat by Pulse 96 96 Oximetry 11/25/18 11/25/18 11/25/18 08:48 09:18 09:49 Temperature Pulse Rate 104 H 113 H 109 H Respiratory Rate Blood Pressure 134/65 136/78 169/74 Blood Pressure [Right] O2 Sat by Pulse Oximetry 11/25/18 11/25/18 11/25/18 09:55 10:19 10:21 Temperature Pulse Rate 107 H 115 H 107 H Respiratory Rate Blood Pressure 124/58 95/51 141/63 Blood Pressure [Right] O2 Sat by Pulse Oximetry 11/25/18 11/25/18 11/25/18 10:23 10:48 11:18 Temperature Pulse Rate 107 H 104 H 99 H Respiratory Rate Blood Pressure 141/63 140/72 147/78 Blood Pressure [Right] O2 Sat by Pulse Oximetry 11/25/18 11/25/18 11/25/18 11:48 12:18 12:49 Temperature 98.3 F Pulse Rate 84 97 H 85 Respiratory 18 Rate Blood Pressure 143/92 145/79 155/80 Blood Pressure [Right] O2 Sat by Pulse 97 Oximetry 11/25/18 11/25/18 11/25/18 12:58 13:58 14:58 Temperature Pulse Rate 75 95 H 83 Respiratory Rate Blood Pressure 139/87 155/85 Blood Pressure [Right] O2 Sat by Pulse 90 Oximetry 11/25/18 11/25/18 11/25/18 15:58 16:21 16:27 Temperature 98.4 F Pulse Rate 78 73 97 H Respiratory 20 Rate Blood Pressure 182/93 160/88 Blood Pressure [Right] O2 Sat by Pulse Oximetry - Laboratory Findings CBC and BMP: 11/23/18 15:05 11/23/18 15:05 Abnormal Lab Findings: Abnormal Labs 11/23/18 11/23/18 11/23/18 15:05 15:05 22:04 WBC 13.3 H Lymph % (Auto) 10.5 L Seg Neutrophils % 84.9 H Seg Neutrophils # 11.3 H Creatinine 0.6 L Magnesium 4.80 H Ur Total Protein 24 Hr Urine Total Protein 11/24/18 11/24/18 11/24/18 00:33 05:55 10:55 WBC Lymph % (Auto) Seg Neutrophils % Seg Neutrophils # Creatinine Magnesium 5.30 H 6.60 H 5.30 H Ur Total Protein 24 Hr Urine Total Protein 11/24/18 16:05 WBC Lymph % (Auto) Seg Neutrophils % Seg Neutrophils # Creatinine Magnesium Ur Total Protein 24 Hr 799.50 H Urine Total Protein 39 H
[2018-11-25] MEDS: STADOL IV PRN (18:05)
[2018-11-25] MEDS: ALUM-MAG HYDROX-SIMETH 200-200-20MG/5ML PO PRN (20:20)
[2018-11-26] MEDS ORDERED: BICITRA PO ONE (00:05)
[2018-11-26] MEDS: NORMODYNE PO SCH ×3 (06:59→22:15)
[2018-11-26] MEDS: APRESOLINE IV PRN ×3 (07:24→15:41)
--- NOTE | 2018-11-26 09:52 | Progress Note ---
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 - stable per Neurology P: Continue BP monitoring S/P IV Magnesium sulfate S/P Steroids for FLM Appreciate APA consultation (2) Advanced maternal age (AMA), 40 years or greater Onset Date: ~09/24/18 Current Visit: No Status: Chronic (3) Chronic hypertension affecting Onset Date: ~09/23/18 Current Visit: No Status: Chronic (4) History of CVA (cerebrovascular accident) Onset Date: Unknown Current Visit: No Status: Chronic Subjective - Subjective Date of service: 11/26/18 Principal diagnosis: IUP @ 30 3/7 weeks; Preeclampsia; Benign brain lesion Interval history: Pt is a 43yo BF EDC 02/01/19; EGA 30 3/7 weeks who presented from [facility] for evaluation of elevated BP's 206/106 in the office. She received care at [facility] and co-managed by [facility] for Chronic hypertension, AMA and history of stroke. She is on labetolol 300mg TID, and Clonidine 0.1mg prn and Low dose aspirin. She had a severe headache - now improved with Fiorcet. CT Scan showed a 1.6 x 1.2cm brain lesion for which Neurology was consulted. MRI consistent with chronic ischemic changes. PIH labs are WNL and 24hour urine showed 799.50mg Protein. BPP 8/8 and Repeat PIH labs - WNL. Patient reports: movement normal, no new complaints, no loss of fluid, no vaginal bleeding, no contractions Objective - Vital Signs Vital Signs: Vital Signs - 12hr 11/25/18 11/25/18 11/25/18 22:18 22:54 23:50 Temperature 98.0 F Pulse Rate 86 83 Respiratory 18 Rate Blood Pressure 127/61 112/57 O2 Sat by Pulse 93 Oximetry 11/25/18 11/26/18 11/26/18 23:53 00:54 01:54 Temperature Pulse Rate 77 76 76 Respiratory Rate Blood Pressure 123/64 120/67 129/68 O2 Sat by Pulse Oximetry 11/26/18 11/26/18 11/26/18 02:54 03:54 04:54 Temperature Pulse Rate 72 64 68 Respiratory Rate Blood Pressure 156/74 137/62 153/69 O2 Sat by Pulse Oximetry 11/26/18 11/26/18 11/26/18 05:37 05:39 05:42 Temperature 98.3 F Pulse Rate 82 62 Respiratory 20 Rate Blood Pressure O2 Sat by Pulse 98 97 Oximetry 11/26/18 11/26/18 11/26/18 05:47 05:52 05:54 Temperature Pulse Rate 65 66 63 Respiratory Rate Blood Pressure 188/89 O2 Sat by Pulse 97 97 Oximetry 11/26/18 11/26/18 11/26/18 05:57 05:58 06:02 Temperature Pulse Rate 58 L 83 76 Respiratory Rate Blood Pressure O2 Sat by Pulse 98 93 94 Oximetry 11/26/18 11/26/18 11/26/18 06:09 06:17 06:23 Temperature Pulse Rate 72 Respiratory Rate Blood Pressure O2 Sat by Pulse 80 L 90 80 L Oximetry 11/26/18 11/26/18 11/26/18 06:54 06:58 06:59 Temperature Pulse Rate 63 61 Respiratory Rate Blood Pressure 165/82 O2 Sat by Pulse 82 L 91 Oximetry 11/26/18 11/26/18 11/26/18 07:01 07:12 07:22 Temperature Pulse Rate 63 58 L 62 Respiratory Rate Blood Pressure 191/91 195/94 196/94 O2 Sat by Pulse Oximetry 11/26/18 11/26/18 11/26/18 07:24 07:40 07:55 Temperature Pulse Rate 62 77 77 Respiratory Rate Blood Pressure 196/94 177/84 164/74 O2 Sat by Pulse Oximetry 11/26/18 11/26/18 08:10 08:25 Temperature Pulse Rate 67 85 Respiratory Rate Blood Pressure 158/73 142/66 O2 Sat by Pulse Oximetry - Exam Cardiovascular: Regular rate Abdomen: Present: normal appearance, soft Uterus: Present: normal FHR: category 1 Uterine Contraction Monitor Mode: External Uterine Contraction Pattern: Absent - Labs Labs: Abnormal Labs 11/23/18 11/23/18 11/23/18 15:05 15:05 22:04 WBC 13.3 H Lymph % (Auto) 10.5 L Seg Neutrophils % 84.9 H Seg Neutrophils # 11.3 H Creatinine 0.6 L Magnesium 4.80 H Ur Total Protein 24 Hr Urine Total Protein 11/24/18 11/24/18 11/24/18 00:33 05:55 10:55 WBC Lymph % (Auto) Seg Neutrophils % Seg Neutrophils # Creatinine Magnesium 5.30 H 6.60 H 5.30 H Ur Total Protein 24 Hr Urine Total Protein 11/24/18 16:05 WBC Lymph % (Auto) Seg Neutrophils % Seg Neutrophils # Creatinine Magnesium Ur Total Protein 24 Hr 799.50 H Urine Total Protein 39 H Laboratory Last Values WBC 13.3 K/mm3 (4.5-11.0) H 11/23/18 15:05 RBC 3.88 M/mm3 (3.65-5.03) 11/23/18 15:05 Hgb 10.9 gm/dl (10.1-14.3) 11/23/18 15:05 Hct 32.4 % (30.3-42.9) 11/23/18 15:05 MCV 84 fl (79-97) 11/23/18 15:05 MCH 28 pg (28-32) 11/23/18 15:05 MCHC 34 % (30-34) 11/23/18 15:05 RDW 14.9 % (13.2-15.2) 11/23/18 15:05 Plt Count 305 K/mm3 (140-440) 11/23/18 15:05 Lymph % (Auto) 10.5 % (13.4-35.0) L 11/23/18 15:05 [place] % (Auto) 4.0 % (0.0-7.3) 11/23/18 15:05 Eos % (Auto) 0.1 % (0.0-4.3) 11/23/18 15:05 Baso % (Auto) 0.5 % (0.0-1.8) 11/23/18 15:05 Lymph # 1.4 K/mm3 (1.2-5.4) 11/23/18 15:05 [place] # 0.5 K/mm3 (0.0-0.8) 11/23/18 15:05 Eos # 0.0 K/mm3 (0.0-0.4) 11/23/18 15:05 Baso # 0.1 K/mm3 (0.0-0.1) 11/23/18 15:05 Seg Neutrophils % 84.9 % (40.0-70.0) H 11/23/18 15:05 Seg Neutrophils # 11.3 K/mm3 (1.8-7.7) H 11/23/18 15:05 Creatinine 0.6 mg/dL (0.7-1.2) L 11/23/18 15:05 Estimated GFR > 60 ml/min 11/23/18 15:05 Uric Acid 6.3 mg/dL (3.5-7.6) 11/23/18 15:05 Magnesium 5.30 mg/dL (1.7-2.3) H 11/24/18 10:55 AST 14 units/L (5-40) 11/26/18 10:41 ALT 10 units/L (7-56) 11/26/18 10:41 Lactate Dehydrogenase 168 units/L (91-180) 11/23/18 15:05 Urine Color Straw (Yellow) 11/23/18 16:45 Urine Turbidity Clear (Clear) 11/23/18 16:45 Urine pH 6.0 (5.0-7.0) 11/23/18 16:45 Ur Specific [place] 1.004 (1.003-1.030) 11/23/18 16:45 Urine Protein <15 mg/dl mg/dL (Negative) 11/23/18 16:45 Urine Glucose (UA) Neg mg/dL (Negative) 11/23/18 16:45 Urine Ketones Neg mg/dL (Negative) 11/23/18 16:45 Urine Blood Neg (Negative) 11/23/18 16:45 Urine Nitrite Neg (Negative) 11/23/18 16:45 Urine Bilirubin Neg (Negative) 11/23/18 16:45 Urine Urobilinogen < 2.0 mg/dL (<2.0) 11/23/18 16:45 Ur Leukocyte Esterase Neg (Negative) 11/23/18 16:45 Urine WBC (Auto) < 1.0 /HPF (0.0-6.0) 11/23/18 16:45 Urine RBC (Auto) < 1.0 /HPF (0.0-6.0) 11/23/18 16:45 U Epithel Cells (Auto) < 1.0 /HPF (0-13.0) 11/23/18 16:45 Urine Bacteria (Auto) 1+ /HPF (Negative) 11/23/18 16:45 Urine Mucus Few /HPF 11/23/18 16:45 Urine Total Volume 2050 ml 11/24/18 16:05 Ur Total Protein 24 Hr 799.50 mg/dL (2-200) H 11/24/18 16:05 Urine Total Protein 39 mg/dL (5-11.8) H 11/24/18 16:05 Blood Type O POSITIVE 11/23/18 15:05 Antibody Screen Negative 11/23/18 15:05 - Results US- obstetric: report reviewed (BPP 04/28; Doppler's - WNL.)
--- NOTE | 2018-11-26 10:43 | Ultrasound Report ---
ULTRASOUND BIOPHYSICAL PROFILE: History: Preeclampsia, 30 week Technique: Transabdominal ultrasound with Doppler interrogation. 2 - breathing movements 2 - movements 2 - posture and tone 2 - Qualitative amniotic fluid volume 8 - TOTAL SCORE OF POSSIBLE 8 Heart Rate (bpm) 139
[2018-11-26 11:40] LABS: Alanine Aminotransferase 10 units/L (7-56)
--- NOTE | 2018-11-26 13:54 | Ultrasound Report ---
ULTRASOUND OB VELOCIMETRY UMBILICAL ARTERY HISTORY: Preeclampsia. TECHNIQUE: Transabdominal ultrasound. Spectral Doppler interrogation was performed on 3 segments of the umbilical cord. FINDINGS: heart rate measures 148 beats per minute. The spectral waveforms are normal and persistent. No evidence for loss or reversal of end-diastolic flow. The resistive index average measures 0.58. The systolic/diastolic ratio average measures 2.4. IMPRESSION: Umbilical cord Doppler within normal limits.
--- NOTE | 2018-11-26 14:31 | Consultation ---
History of Present Illness Consult date: 11/26/18 Requesting physician: IWONA DALTON History of present illness: Ms. Jason a 43 year old para 3013 who presented following an ultrasound at [facility] due to poorly controlled hypertension. Patient has a history of advanced maternal age, chronic hypertension x 6 years, coronary artery disease and a history of strokes. Patient is currently 30 weeks 3 days based on an YUNIER of 02/01/19. 24 Hour urine 779 mg BP 142/66, 182/90, 168, 78 BP's yesterday were controlled but today increased Seen by neurology MRI lesion - c/w old stroke per neurology ALMODOVAR's somewhat better "Fiorecet helps" Denies Scotoma Denies RUQ Pain "some pressure under my breasts but better I adjusted" She was on labetolol 200mg BID, now increased to 300mg TID per [facility], and Clonidine 0.1mg prn and Low dose aspirin. She had a severe headache last night - now improved with Percocet, and currently on IV Magnesium sulfate and IV Hydralazine for BP control. CT Scan showed a 1.6 x 1.2cm brain lesion for which Neurology was consulted. MRI consistent with chronic ischemic changes. Patient was seen by Neurologist during this visit. Her blood pressure is improving. She continues to c/o headache. Past History Past Medical History: hypertension Past Surgical History: no surgical history Family/Genetic History: none - Obstetrical History : 4 Medications and Allergies Allergies Allergy/AdvReac Type Severity Reaction Status Date / Time No Known Allergies Allergy Verified 11/23/18 14:54 Home Medications Medication Instructions Recorded Confirmed Last Taken Type Aspirin [Lo-Dose Aspirin EC] 81 mg PO DAILY 09/23/18 11/23/18 09/23/18 05:00 History Ferrous Sulfate [Iron] 325 mg PO DAILY 09/23/18 11/23/18 09/23/18 05:00 History Vit-Fe Fumar-FA [ 1 tab PO QDAY 09/23/18 11/23/18 09/23/18 05:00 History Vitamin] cloNIDine [Catapres] 0.1 mg PO PRN 09/23/18 11/23/18 Unknown History Labetalol [Normodyne TAB] 300 mg PO BID #90 tablet 09/26/18 11/23/18 Unknown Rx Active Meds: Active Medications Acetaminophen (Tylenol) 650 mg PO Q4H PRN PRN Reason: Pain MILD(1-3)/Fever >100.5/ALMODOVAR Last Admin: 11/23/18 21:15 Dose: 650 mg Documented by: Acetaminophen/Butalbital/Caffeine (Fioricet) 2 tab PO Q4H PRN PRN Reason: Headache Last Admin: 11/25/18 11:13 Dose: 2 tab Documented by: Al Hydrox/Mg Hydrox/Simethicone (Alum-Mag Hydrox-Simeth [phone]/5ml) 30 ml PO Q4H PRN PRN Reason: Indigestion Last Admin: 11/25/18 20:20 Dose: 30 ml Documented by: Butorphanol Tartrate (Stadol) 2 mg IV Q2H PRN PRN Reason: Pain, Moderate (4-6) Last Admin: 11/25/18 18:05 Dose: 2 mg Documented by: Clonidine HCl (Catapres) 0.1 mg PO Q4H PRN PRN Reason: Blood Pressure Last Admin: 11/24/18 12:04 Dose: 0.1 mg Documented by: Docusate Sodium (Colace) 100 mg PO Q12H PRN PRN Reason: Constipation Last Admin: 11/24/18 21:52 Dose: 100 mg Documented by: Hydralazine HCl (Apresoline) 10 mg IV Q30MIN PRN PRN Reason: Blood Pressure Last Admin: 11/26/18 12:20 Dose: 10 mg Documented by: Hydralazine HCl (Apresoline) 10 mg IV Q30MIN PRN PRN Reason: HTN >=160/100 Last Admin: 11/26/18 07:24 Dose: 10 mg Documented by: Labetalol HCl (Normodyne) 10 mg IV Q30MIN PRN PRN Reason: Blood Pressure Last Admin: 11/24/18 17:30 Dose: 10 mg Documented by: Labetalol HCl (Normodyne) 300 mg PO Q8HR MARIA D Last Admin: 11/26/18 06:59 Dose: 300 mg Documented by: Magnesium Hydroxide (Milk Of Magnesia) 30 ml PO QHS PRN PRN Reason: Laxative Effect Multivitamins/Iron/Calcium ( Vitamin) 1 each PO QDAY MARIA D Last Admin: 11/25/18 10:24 Dose: 1 each Documented by: Ondansetron HCl (Zofran) 4 mg IV Q6H PRN PRN Reason: Nausea And Vomiting Last Admin: 11/24/18 13:54 Dose: 4 mg Documented by: - Vital Signs Vital signs: Vital Signs Pulse BP 96 H 224/113 11/23/18 14:33 11/23/18 14:33 Temp Pulse Resp BP Pulse Ox 98.3 F 104 H 20 153/73 91 11/26/18 05:39 11/26/18 12:57 11/26/18 05:39 11/26/18 12:57 11/26/18 06:59 Results Result Diagrams: 11/23/18 15:05 11/23/18 15:05 All other labs normal. Assessment and Plan . 1. Lauren IUP at 30 3/7 weeks 2. CHTN with Elevated BP's with Superimposed Preeclampsia - 24 Hour Urine at 779 mg 3. H/O Stroke 4. Reports H/O Coronary Artery Ds 5. MO 6. Brain CT - 1.6 X 1.2 hypodense lesion in Left Caudate/anterior medial globus pallidus - C/W old stroke per neurology 7. AMA Recommendations 1. 24 Hour urine - 779 2. Steroids for FLM if not given 3. NICU consult 4. Neurology consult done see consult 5. BPP twice per week while in house 6. EFM q shift 7. Continue Labetalol 300 TID PO and would add Methyldopa 250 BID 8. IV hydralazine for BP's sys > 160 or wesley > 110 9. continued in house management - if BP's remain labile and ALMODOVAR's or severe features would deliver aiming at 34 to 35 weeks.
[2018-11-26] MEDS: FIORICET PO PRN (15:39)
[2018-11-26] MEDS: STADOL IV PRN (20:18)
[2018-11-26] MEDS: ZOFRAN IV PRN (20:19)
[2018-11-26] MEDS ORDERED: ALDOMET PO SCH (21:00)
[2018-11-26] MEDS: ALDOMET PO SCH (22:11)
[2018-11-27] MEDS: APRESOLINE IV PRN ×2 (04:39→11:08)
[2018-11-27] MEDS: NORMODYNE PO SCH ×3 (06:15→20:58)
[2018-11-27] MEDS: ALDOMET PO SCH ×2 (09:18→20:43)
[2018-11-27] MEDS: PRENATAL VITAMIN PO SCH (09:18)
--- NOTE | 2018-11-27 11:57 | Progress Note ---
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 - stable per Neurology P: Continue BP monitoring S/P IV Magnesium sulfate S/P Steroids for FLM Appreciate APA consultation (2) Advanced maternal age (AMA), 40 years or greater Onset Date: ~09/24/18 Current Visit: No Status: Chronic (3) Chronic hypertension affecting Onset Date: ~09/23/18 Current Visit: No Status: Chronic (4) History of CVA (cerebrovascular accident) Onset Date: Unknown Current Visit: No Status: Chronic Subjective - Subjective Date of service: 11/27/18 Principal diagnosis: IUP @ 30 3/7 weeks; Preeclampsia; Benign brain lesion Interval history: Pt is a 43yo BF EDC 02/01/19; EGA 30 4/7 weeks who presented from [facility] for evaluation of elevated BP's 206/106 in the office. She received care at [facility] and co-managed by [facility] for Chronic hypertension, AMA and history of stroke. She is on labetolol 300mg TID, Aldomet 250mg BID and Clonidine 0.1mg prn and Low dose aspirin. She had a severe headache - now improved with Fiorcet. CT Scan showed a 1.6 x 1.2cm brain lesion for which Neurology was consulted. MRI consistent with chronic ischemic changes. PIH labs are WNL and 24hour urine showed 799.50mg Protein. BPP 8/8 with Normal Dopplers 11/26/18 and Repeat PIH labs - WNL. Today she is feeling better without complaints. Headaches resolved. Patient reports: movement normal, no new complaints, no loss of fluid, no vaginal bleeding, no contractions Objective - Vital Signs Vital Signs: Vital Signs - 12hr 11/26/18 11/27/18 11/27/18 23:56 00:35 00:57 Temperature 98.1 F Pulse Rate 75 71 Respiratory 16 Rate Blood Pressure 144/79 120/55 11/27/18 11/27/18 11/27/18 01:57 02:56 03:57 Temperature Pulse Rate 67 78 64 Respiratory Rate Blood Pressure 129/76 148/77 198/85 11/27/18 11/27/18 11/27/18 04:39 04:40 04:57 Temperature 98.2 F Pulse Rate 64 65 Respiratory 16 Rate Blood Pressure 198/85 151/78 11/27/18 11/27/18 11/27/18 05:57 06:15 07:47 Temperature 98.2 F Pulse Rate 86 86 91 H Respiratory 20 Rate Blood Pressure 166/82 166/82 149/79 11/27/18 11/27/18 11/27/18 07:56 08:58 09:18 Temperature Pulse Rate 82 67 76 Respiratory Rate Blood Pressure 147/79 113/59 163/87 11/27/18 11/27/18 11/27/18 09:20 09:57 10:57 Temperature Pulse Rate 76 79 77 Respiratory Rate Blood Pressure 163/87 188/89 184/89 11/27/18 11/27/18 11:08 11:40 Temperature Pulse Rate 77 100 H Respiratory Rate Blood Pressure 184/89 159/95 - Exam Abdomen: Present: normal appearance, soft Uterus: Present: normal FHR: category 1 Uterine Contraction Monitor Mode: External Uterine Contraction Pattern: Absent - Labs Labs: Abnormal Labs 11/23/18 11/23/18 11/23/18 15:05 15:05 22:04 WBC 13.3 H Lymph % (Auto) 10.5 L Seg Neutrophils % 84.9 H Seg Neutrophils # 11.3 H Creatinine 0.6 L Magnesium 4.80 H Ur Total Protein 24 Hr Urine Total Protein 11/24/18 11/24/18 11/24/18 00:33 05:55 10:55 WBC Lymph % (Auto) Seg Neutrophils % Seg Neutrophils # Creatinine Magnesium 5.30 H 6.60 H 5.30 H Ur Total Protein 24 Hr Urine Total Protein 11/24/18 16:05 WBC Lymph % (Auto) Seg Neutrophils % Seg Neutrophils # Creatinine Magnesium Ur Total Protein 24 Hr 799.50 H Urine Total Protein 39 H
--- NOTE | 2018-11-27 15:54 | Progress Note ---
Assessment and Plan . 1. Lauren IUP at 30 4/7 weeks 2. CHTN with Elevated BP's with Superimposed Preeclampsia - 24 Hour Urine at 779 mg and by BP criteria 3. H/O Stroke 4. Reports H/O Coronary Artery Ds 5. MO 6. Brain CT - 1.6 X 1.2 hypodense lesion in Left Caudate/anterior medial globus pallidus - C/W old stroke per neurology 7. AMA Recommendations 1. 24 Hour urine - 779 2. Steroids for FLM completed 3. NICU consult 4. Neurology consult done see consult 5. BPP twice per week while in house 6. EFM q shift 7. Increase Labetalol 400 TID PO and would add Methyldopa 250 BID 8. IV hydralazine for BP's sys > 160 or wesley > 110 or Clonidine 9. Continued in house management would aim for delivery at 34 weeks would deliver sooner for - BP that are not controlled despite meds - neurologic symptoms that are severe and not responsive to meds - if her ALMODOVAR remains severe I would start her induction and mag - RUQ pain that is nonremitting - LFT double or platelets <`100 - renal function decline - pulm edema - seizure - NRFHTS -standard maternal indications Spoke with Dr Fernandes about the recommendation Subjective - Subjective Principal diagnosis: IUP @ 30 3/7 weeks; Preeclampsia; Benign brain lesion Patient reports: movement normal, other (mild ALMODOVAR but not like the other day), no new complaints, no loss of fluid, no vaginal bleeding, no contractions Objective - Vital Signs Vital Signs: Vital Signs - 12hr 11/27/18 11/27/18 11/27/18 03:57 04:39 04:40 Temperature 98.2 F Pulse Rate 64 64 Respiratory 16 Rate Blood Pressure 198/85 198/85 11/27/18 11/27/18 11/27/18 04:57 05:57 06:15 Temperature Pulse Rate 65 86 86 Respiratory Rate Blood Pressure 151/78 166/82 166/82 11/27/18 11/27/18 11/27/18 07:47 07:56 08:58 Temperature 98.2 F Pulse Rate 91 H 82 67 Respiratory 20 Rate Blood Pressure 149/79 147/79 113/59 11/27/18 11/27/18 11/27/18 09:18 09:20 09:57 Temperature Pulse Rate 76 76 79 Respiratory Rate Blood Pressure 163/87 163/87 188/89 11/27/18 11/27/18 11/27/18 10:57 11:08 11:10 Temperature 98.6 F Pulse Rate 77 77 Respiratory 18 Rate Blood Pressure 184/89 184/89 11/27/18 11/27/18 11/27/18 11:40 14:00 15:00 Temperature Pulse Rate 100 H 100 H 88 Respiratory Rate Blood Pressure 159/95 159/95 162/88 11/27/18 15:27 Temperature 98.7 F Pulse Rate Respiratory Rate Blood Pressure - Exam Cardiovascular: Regular rate Abdomen: Present: soft. Absent: distention, tenderness Uterus: Present: normal FHR: category 1 - Labs Labs: Abnormal Labs 11/23/18 11/23/18 11/23/18 15:05 15:05 22:04 WBC 13.3 H Lymph % (Auto) 10.5 L Seg Neutrophils % 84.9 H Seg Neutrophils # 11.3 H Creatinine 0.6 L Magnesium 4.80 H Ur Total Protein 24 Hr Urine Total Protein 11/24/18 11/24/18 11/24/18 00:33 05:55 10:55 WBC Lymph % (Auto) Seg Neutrophils % Seg Neutrophils # Creatinine Magnesium 5.30 H 6.60 H 5.30 H Ur Total Protein 24 Hr Urine Total Protein 11/24/18 16:05 WBC Lymph % (Auto) Seg Neutrophils % Seg Neutrophils # Creatinine Magnesium Ur Total Protein 24 Hr 799.50 H Urine Total Protein 39 H
[2018-11-27] MEDS: ZOFRAN IV PRN (21:03)
[2018-11-28] MEDS: STADOL IV PRN (00:32)
[2018-11-28] MEDS ORDERED: LACTATED RINGERS 1,000 ML ONE (00:33)
[2018-11-28] MEDS ORDERED: LACTATED RINGERS 1,000 ML IV ONE (03:30)
[2018-11-28] MEDS: NORMODYNE PO SCH ×4 (04:38→21:35)
[2018-11-28] MEDS: CATAPRES PO PRN (06:33)
[2018-11-28] MEDS ORDERED: LACTATED RINGERS 1,000 ML IV SCH (06:40)
[2018-11-28] MEDS: PRENATAL VITAMIN PO SCH (09:00)
[2018-11-28] MEDS: ALDOMET PO SCH ×2 (09:01→21:37)
--- NOTE | 2018-11-28 10:06 | Progress Note ---
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 - stable per Neurology P: Continue BP monitoring S/P IV Magnesium sulfate S/P Steroids for FLM Appreciate APA consultation (2) Advanced maternal age (AMA), 40 years or greater Onset Date: ~09/24/18 Current Visit: No Status: Chronic (3) Chronic hypertension affecting Onset Date: ~09/23/18 Current Visit: No Status: Chronic (4) History of CVA (cerebrovascular accident) Onset Date: Unknown Current Visit: No Status: Chronic Subjective - Subjective Date of service: 11/28/18 Principal diagnosis: IUP @ 30 5/7 weeks; Preeclampsia; Benign brain lesion Interval history: Pt is a 43yo BF EDC 02/01/19; EGA 30 5/7 weeks who presented from [facility] for evaluation of elevated BP's 206/106 in the office. She received care at [facility] and co-managed by [facility] for Chronic hypertension, AMA and history of stroke. She is on labetolol 300mg TID, Aldomet 250mg BID and Clonidine 0.1mg prn and Low dose aspirin. She had a severe headache - now improved with Fiorcet. CT Scan showed a 1.6 x 1.2cm brain lesion for which Neurology was consulted. MRI consistent with chronic ischemic changes. PIH labs are WNL and 24hour urine showed 799.50mg Protein. BPP 8/8 with Normal Dopplers 11/26/18 and Repeat PIH labs - WNL. Today she is feeling better without complaints. Headaches resolved. Patient reports: movement normal, other (mild ALMODOVAR but not like the other day), no new complaints, no loss of fluid, no vaginal bleeding, no contractions Objective - Vital Signs Vital Signs: Vital Signs - 12hr 11/27/18 11/27/18 11/28/18 21:42 23:21 00:43 Temperature Pulse Rate 70 74 72 Respiratory Rate Blood Pressure 173/82 173/86 156/85 11/28/18 11/28/18 11/28/18 06:24 06:25 06:26 Temperature Pulse Rate 61 57 L 61 Respiratory Rate Blood Pressure 207/101 164/92 190/91 11/28/18 11/28/18 11/28/18 07:07 07:17 07:43 Temperature 98.4 F Pulse Rate 62 63 Respiratory 18 Rate Blood Pressure 167/84 141/86 11/28/18 11/28/18 11/28/18 08:43 09:01 10:00 Temperature Pulse Rate 66 67 68 Respiratory Rate Blood Pressure 149/75 138/70 154/75 - Exam Abdomen: Present: normal appearance, soft Uterus: Present: normal FHR: category 1 Uterine Contraction Monitor Mode: External Uterine Contraction Pattern: Absent - Labs Labs: Abnormal Labs 11/23/18 11/23/18 11/23/18 15:05 15:05 22:04 WBC 13.3 H Lymph % (Auto) 10.5 L Seg Neutrophils % 84.9 H Seg Neutrophils # 11.3 H Creatinine 0.6 L Magnesium 4.80 H Ur Total Protein 24 Hr Urine Total Protein 11/24/18 11/24/18 11/24/18 00:33 05:55 10:55 WBC Lymph % (Auto) Seg Neutrophils % Seg Neutrophils # Creatinine Magnesium 5.30 H 6.60 H 5.30 H Ur Total Protein 24 Hr Urine Total Protein 11/24/18 16:05 WBC Lymph % (Auto) Seg Neutrophils % Seg Neutrophils # Creatinine Magnesium Ur Total Protein 24 Hr 799.50 H Urine Total Protein 39 H
[2018-11-29] MEDS: APRESOLINE IV PRN ×4 (01:25→17:30)
[2018-11-29] MEDS: STADOL IV PRN ×2 (01:26→10:51)
[2018-11-29] MEDS: NORMODYNE PO SCH ×3 (06:17→21:39)
--- NOTE | 2018-11-29 10:34 | Progress Note ---
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 - stable per Neurology P: Continue BP monitoring S/P IV Magnesium sulfate S/P Steroids for FLM Appreciate [facility] consultation BPP with SOHA; EFW today (2) Advanced maternal age (AMA), 40 years or greater Onset Date: ~09/24/18 Current Visit: No Status: Chronic (3) Chronic hypertension affecting Onset Date: ~09/23/18 Current Visit: No Status: Chronic (4) History of CVA (cerebrovascular accident) Onset Date: Unknown Current Visit: No Status: Chronic Subjective - Subjective Date of service: 11/29/18 Principal diagnosis: IUP @ 30 6/7 weeks; Preeclampsia; Benign brain lesion Interval history: Pt is a 43yo BF EDC 02/01/19; EGA 30 6/7 weeks who presented from [facility] for evaluation of elevated BP's 206/106 in the office. She received care at [facility] and co-managed by [facility] for Chronic hypertension, AMA and history of stroke. She is on labetolol 300mg TID, Aldomet 250mg BID and Clonidine 0.1mg prn and Low dose aspirin. She had a severe headache - now improved with Fiorcet. CT Scan showed a 1.6 x 1.2cm brain lesion for which Neurology was consulted. MRI consistent with chronic ischemic changes. PIH labs are WNL and 24hour urine showed 799.50mg Protein. BPP 04/28 with Normal D opplers 11/26/18 and Repeat PIH labs - WNL. Today she is not feeling well, and her headaches has re-occurred. Patient reports: new complaints (re-occurring headaches), movement normal, other (mild ALMODOVAR but not like the other day), no loss of fluid, no vaginal bleeding, no contractions Objective - Vital Signs Vital Signs: Vital Signs - 12hr 11/29/18 11/29/18 11/29/18 00:00 00:02 01:09 Pulse Rate 75 73 94 H Blood Pressure 186/94 158/74 184/98 11/29/18 11/29/18 11/29/18 01:19 01:34 01:41 Pulse Rate 72 74 76 Blood Pressure 193/94 178/84 145/65 11/29/18 11/29/18 11/29/18 02:41 03:12 03:43 Pulse Rate 71 85 71 Blood Pressure 159/94 149/76 189/94 11/29/18 11/29/18 11/29/18 04:13 04:41 05:11 Pulse Rate 75 87 78 Blood Pressure 148/86 175/87 184/85 11/29/18 11/29/18 11/29/18 05:41 06:11 06:41 Pulse Rate 75 84 85 Blood Pressure 127/61 146/71 145/68 11/29/18 11/29/18 11/29/18 08:05 08:11 08:41 Pulse Rate 88 81 85 Blood Pressure 132/63 130/61 130/60 11/29/18 11/29/18 11/29/18 09:11 09:41 09:46 Pulse Rate 82 77 83 Blood Pressure 150/72 150/70 149/71 - Exam Abdomen: Present: normal appearance, soft Uterus: Present: normal FHR: category 1 Uterine Contraction Monitor Mode: External Uterine Contraction Pattern: Absent - Labs Labs: Abnormal Labs 11/23/18 11/23/18 11/23/18 15:05 15:05 22:04 WBC 13.3 H Lymph % (Auto) 10.5 L Seg Neutrophils % 84.9 H Seg Neutrophils # 11.3 H Creatinine 0.6 L Magnesium 4.80 H Ur Total Protein 24 Hr Urine Total Protein 11/24/18 11/24/18 11/24/18 00:33 05:55 10:55 WBC Lymph % (Auto) Seg Neutrophils % Seg Neutrophils # Creatinine Magnesium 5.30 H 6.60 H 5.30 H Ur Total Protein 24 Hr Urine Total Protein 11/24/18 16:05 WBC Lymph % (Auto) Seg Neutrophils % Seg Neutrophils # Creatinine Magnesium Ur Total Protein 24 Hr 799.50 H Urine Total Protein 39 H
[2018-11-29] MEDS: PRENATAL VITAMIN PO SCH ×2 (10:39→10:42)
[2018-11-29] MEDS: ALDOMET PO SCH ×2 (10:40→21:39)
[2018-11-29] MEDS: ZOFRAN IV PRN (10:43)
--- NOTE | 2018-11-29 14:34 | Consultation ---
History of Present Illness Consult date: 11/29/18 Requesting physician: IWONA DALTON History of present illness: Ms. Jason a 43 year old para 3013 who presented following an ultrasound at [facility] due to poorly controlled hypertension. Patient has a history of advanced maternal age, chronic hypertension x 6 years, coronary artery disease and a history of strokes. Patient is currently 30 weeks 6 days based on an YUNIER of 02/01/19. 24 Hour urine 779 mg BP's 150/70, 149/71, -- last PM Elevated at 184/98 , 193/94 - Received 2 doses of IV Hydralazine Occ ALMODOVAR's " 11/28" Reports " my body was adjusted to high blood pressures and now that they are lower I have more symptoms" Seen by neurology MRI lesion - c/w old stroke per neurology ALMODOVAR's somewhat better "Fiorecet helps" Denies Scotoma Denies RUQ Pain "some pressure under my breasts but better I adjusted" Past History Past Medical History: hypertension Past Surgical History: no surgical history Family/Genetic History: none - Obstetrical History : 4 Medications and Allergies Allergies Allergy/AdvReac Type Severity Reaction Status Date / Time No Known Allergies Allergy Verified 11/23/18 14:54 Home Medications Medication Instructions Recorded Confirmed Last Taken Type Aspirin [Lo-Dose Aspirin EC] 81 mg PO DAILY 09/23/18 11/23/18 09/23/18 05:00 History Ferrous Sulfate [Iron] 325 mg PO DAILY 09/23/18 11/23/18 09/23/18 05:00 History Vit-Fe Fumar-FA [ 1 tab PO QDAY 09/23/18 11/23/18 09/23/18 05:00 History Vitamin] cloNIDine [Catapres] 0.1 mg PO PRN 09/23/18 11/23/18 Unknown History Labetalol [Normodyne TAB] 300 mg PO BID #90 tablet 09/26/18 11/23/18 Unknown Rx Active Meds: Active Medications Acetaminophen (Tylenol) 650 mg PO Q4H PRN PRN Reason: Pain MILD(1-3)/Fever >100.5/ALMODOVAR Last Admin: 11/23/18 21:15 Dose: 650 mg Documented by: Acetaminophen/Butalbital/Caffeine (Fioricet) 2 tab PO Q4H PRN PRN Reason: Headache Last Admin: 11/26/18 15:39 Dose: 2 tab Documented by: Al Hydrox/Mg Hydrox/Simethicone (Alum-Mag Hydrox-Simeth [phone]/5ml) 30 ml PO Q4H PRN PRN Reason: Indigestion Last Admin: 11/25/18 20:20 Dose: 30 ml Documented by: Butorphanol Tartrate (Stadol) 2 mg IV Q2H PRN PRN Reason: Pain, Moderate (4-6) Last Admin: 11/29/18 10:51 Dose: 2 mg Documented by: Clonidine HCl (Catapres) 0.1 mg PO Q4H PRN PRN Reason: Blood Pressure Last Admin: 11/28/18 06:33 Dose: 0.1 mg Documented by: Docusate Sodium (Colace) 100 mg PO Q12H PRN PRN Reason: Constipation Last Admin: 11/24/18 21:52 Dose: 100 mg Documented by: Hydralazine HCl (Apresoline) 10 mg IV Q30MIN PRN PRN Reason: HTN >=160/100 Last Admin: 11/29/18 05:23 Dose: 10 mg Documented by: Lactated Ringer's (Lactated Ringers) 1,000 mls @ 125 mls/hr IV DIRECT MARIA D Labetalol HCl (Normodyne) 10 mg IV Q30MIN PRN PRN Reason: Blood Pressure Last Admin: 11/24/18 17:30 Dose: 10 mg Documented by: Labetalol HCl (Normodyne) 400 mg PO Q8HR [facility] Last Admin: 11/29/18 06:17 Dose: 400 mg Documented by: Magnesium Hydroxide (Milk Of Magnesia) 30 ml PO QHS PRN PRN Reason: Laxative Effect Methyldopa (Aldomet) 250 mg PO Q12H MARIA D Last Admin: 11/29/18 10:40 Dose: 250 mg Documented by: Multivitamins/Iron/Calcium ( Vitamin) 1 each PO QDAY MARIA D Last Admin: 11/29/18 10:42 Dose: 1 each Documented by: Ondansetron HCl (Zofran) 4 mg IV Q6H PRN PRN Reason: Nausea And Vomiting Last Admin: 11/29/18 10:43 Dose: 4 mg Documented by: - Vital Signs Vital signs: Vital Signs Pulse BP 96 H 224/113 11/23/18 14:33 11/23/18 14:33 Temp Pulse Resp BP Pulse Ox 98.6 F 73 16 185/89 98 11/29/18 09:50 11/29/18 14:11 11/29/18 09:50 11/29/18 14:11 11/29/18 09:50 Results Result Diagrams: 11/23/18 15:05 11/23/18 15:05 All other labs normal. Assessment and Plan . 1. Lauren IUP at 30 6/7 weeks 2. CHTN with Elevated BP's with Superimposed Preeclampsia - 24 Hour Urine at 779 mg - Still Labile BP's 3. H/O Stroke 4. Reports H/O Coronary Artery Ds 5. MO 6. Brain CT - 1.6 X 1.2 hypodense lesion in Left Caudate/anterior medial globus pallidus - C/W old stroke per neurology 7. AMA Recommendations 1. 24 Hour urine - 779 2. Steroids for FLM completed 3. NICU consult 4. Neurology consult done see consult 5. BPP twice per week while in house 6. EFM q shift 7. Labetalol 400 TID PO and would add Methyldopa 250 BID 8. IV hydralazine for BP's sys > 160 or wesley > 110 or Clonidine 9. Continued in house management would aim for delivery at 34 weeks would deliver sooner for - BP that are not controlled despite meds - neurologic symptoms that are severe and not responsive to meds - if her ALMODOVAR remains severe I would start her induction and mag - RUQ pain that is nonremitting - LFT double or platelets <`100 - renal function decline - pulm edema - seizure - NRFHTS -standard maternal indications 10. To order BPP and US EFW with Cord Arterial Dopplers
--- NOTE | 2018-11-29 15:04 | Ultrasound Report ---
ULTRASOUND BIOPHYSICAL PROFILE: History: well being Technique: Transabdominal ultrasound with Doppler interrogation. 2 - breathing movements 2 - movements 2 - posture and tone 2 - Qualitative amniotic fluid volume 8 - TOTAL SCORE OF POSSIBLE 8 Heart Rate (bpm) 138
--- NOTE | 2018-11-29 15:05 | Ultrasound Report ---
ULTRASOUND OB VELOCIMETRY UMBILICAL ARTERY HISTORY: Intrauterine . TECHNIQUE: Transabdominal ultrasound. Spectral Doppler interrogation was performed on 3 segments of the umbilical cord. FINDINGS: heart rate measures 141 beats per minute. The spectral waveforms are normal and persistent. No evidence for loss or reversal of end-diastolic flow. The resistive index average measures 0.65. The systolic/diastolic ratio average measures 2. 87. IMPRESSION: Umbilical cord Doppler within normal limits.
[2018-11-29] MEDS ORDERED: PHENERGAN PO PRN (18:07)
[2018-11-30] MEDS: NORMODYNE PO SCH ×3 (05:16→21:59)
--- NOTE | 2018-11-30 08:53 | Progress Note ---
Assessment and Plan - Patient Problems (1) 30 weeks gestation of Onset Date: 11/23/18 Current Visit: Yes Status: Acute (2) Advanced maternal age (AMA), 40 years or greater Onset Date: ~09/24/18 Current Visit: No Status: Chronic (3) Chronic hypertension affecting Onset Date: ~09/23/18 Current Visit: No Status: Chronic (4) History of CVA (cerebrovascular accident) Onset Date: Unknown Current Visit: No Status: Chronic (5) 31 weeks gestation of Onset Date: 11/30/18 Current Visit: Yes Status: Acute Plan to address problem: A: IUP @ 31 0/7 weeks Chronic hypertension - improved on Labetolol 400mg TID; Aldomet 250mg BID and Clonidine 0.1mg Q4h Preeclampsia - stable AMA History of stroke 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 She received care at [facility] and co-managed by [facility] for Chronic hypertension, AMA and history of stroke. She is on labetolol 300mg TID, Aldomet 250mg BID and Clonidine 0.1mg prn and Low dose aspirin. She had a severe headache - now improved with Fiorcet. CT Scan showed a 1.6 x 1.2cm brain lesion for which Neurology was consulted. MRI consistent with chronic ischemic changes. PIH labs are WNL and 24hour urine showed 799.50mg Protein. BPP 8/8 with Normal Dopplers 11/26/18 and Repeat PIH labs - WNL. Today she is feeling better with a mild headache - relieved with Fioricet. Patient reports: new complaints (re-occurring headaches), movement normal, other (mild ALMODOVAR but not like the other day), no loss of fluid, no vaginal bleeding, no contractions Objective - Vital Signs Vital Signs: Vital Signs - 12hr 11/29/18 11/29/18 11/29/18 20:58 21:13 21:29 Temperature Pulse Rate 71 76 80 Respiratory Rate Blood Pressure 137/66 136/65 141/69 Blood Pressure [Left] O2 Sat by Pulse Oximetry 11/29/18 11/29/18 11/29/18 21:33 21:34 21:39 Temperature 98.3 F Pulse Rate 73 73 73 Respiratory 18 Rate Blood Pressure 157/78 157/78 Blood Pressure 157/78 [Left] O2 Sat by Pulse Oximetry 11/29/18 11/29/18 11/29/18 21:43 21:58 22:13 Temperature Pulse Rate 83 71 75 Respiratory Rate Blood Pressure 155/79 153/78 153/80 Blood Pressure [Left] O2 Sat by Pulse Oximetry 11/29/18 11/29/18 11/29/18 22:28 22:44 23:25 Temperature Pulse Rate 74 69 75 Respiratory Rate Blood Pressure 134/74 166/91 135/73 Blood Pressure [Left] O2 Sat by Pulse Oximetry 11/29/18 11/30/18 11/30/18 23:55 00:06 00:08 Temperature 98.4 F Pulse Rate 65 74 74 Respiratory 18 Rate Blood Pressure 142/88 135/75 Blood Pressure 135/75 [Left] O2 Sat by Pulse Oximetry 11/30/18 11/30/18 11/30/18 00:25 00:55 01:25 Temperature Pulse Rate 74 72 71 Respiratory Rate Blood Pressure 117/67 132/74 118/70 Blood Pressure [Left] O2 Sat by Pulse Oximetry 11/30/18 11/30/18 11/30/18 01:55 02:25 02:56 Temperature Pulse Rate 74 75 80 Respiratory Rate Blood Pressure 123/62 118/68 163/86 Blood Pressure [Left] O2 Sat by Pulse Oximetry 11/30/18 11/30/18 11/30/18 03:25 03:28 03:29 Temperature Pulse Rate 68 83 67 Respiratory Rate Blood Pressure 134/73 154/78 Blood Pressure [Left] O2 Sat by Pulse 87 96 Oximetry 11/30/18 11/30/18 11/30/18 03:30 03:55 04:25 Temperature 98.2 F Pulse Rate 66 68 79 Respiratory 18 Rate Blood Pressure 125/65 150/73 Blood Pressure 154/78 [Left] O2 Sat by Pulse 96 Oximetry 11/30/18 11/30/18 11/30/18 04:56 05:16 05:25 Temperature Pulse Rate 61 65 59 L Respiratory Rate Blood Pressure 154/79 149/75 147/75 Blood Pressure [Left] O2 Sat by Pulse Oximetry 11/30/18 11/30/18 11/30/18 05:56 06:27 06:55 Temperature Pulse Rate 71 61 70 Respiratory Rate Blood Pressure 153/82 174/92 130/63 Blood Pressure [Left] O2 Sat by Pulse Oximetry 11/30/18 11/30/18 11/30/18 07:25 07:55 08:25 Temperature Pulse Rate 75 71 70 Respiratory Rate Blood Pressure 141/70 140/73 142/73 Blood Pressure [Left] O2 Sat by Pulse Oximetry - Exam Breasts: deferred Abdomen: Present: normal appearance, soft Uterus: Present: normal FHR: category 1 Uterine Contraction Monitor Mode: External - Labs Labs: Abnormal Labs 11/23/18 11/23/18 11/23/18 15:05 15:05 22:04 WBC 13.3 H Lymph % (Auto) 10.5 L Seg Neutrophils % 84.9 H Seg Neutrophils # 11.3 H Creatinine 0.6 L Magnesium 4.80 H Ur Total Protein 24 Hr Urine Total Protein 11/24/18 11/24/18 11/24/18 00:33 05:55 10:55 WBC Lymph % (Auto) Seg Neutrophils % Seg Neutrophils # Creatinine Magnesium 5.30 H 6.60 H 5.30 H Ur Total Protein 24 Hr Urine Total Protein 11/24/18 16:05 WBC Lymph % (Auto) Seg Neutrophils % Seg Neutrophils # Creatinine Magnesium Ur Total Protein 24 Hr 799.50 H Urine Total Protein 39 H - Results US- obstetric: report reviewed (BPP - 04/28; Dopplers - WNL.)
--- NOTE | 2018-11-30 09:41 | Consultation ---
History of Present Illness Consult date: 11/30/18 Requesting physician: IWONA DALTON Reason for consult: gestational hypertension History of present illness: Thank you for your recent consultation regarding the above named patient. As you are aware, this is a 43 year old para 3013 who presented following an ultrasound at [facility] due to poorly controlled hypertension. Patient has a history of advanced maternal age, chronic hypertension x 6 years, coronary artery disease and a history of strokes. Patient is currently 31 weeks based on an YUNIER of 02/01/19. Patient was told to come to the hospital for lab tests on an a 24 hour urine She had a severe headache last night - now improved with Percocet, and currently on IV Magnesium sulfate and IV Hydralazine for BP control. CT Scan showed a 1.6 x 1.2cm brain lesion for which Neurology was consulted. MRI consistent with chronic ischemic changes. Patient was seen by Neurologist during this visit. Her blood pressure is improving. She continues to c/o headache. CURRENT PRESENTATION: Patient was seen today her BP better controlled; however she does have severe range outliers. Yesterday we increased her Labetalol to 400 TID. Patient complains of MILD headache relieved with medication. Does NOT appear to be related to preecampsia; however, we have indicated that if she continues to c/o significant headache or neurological symptoms this would be a case for a low threshold for delivery. Our goal is to get this patient to 34 weeks. She is NOT a candidate for discharge at this time. PAST OB HISTORY: 1992: at term. BW: 7 pounds 5 oz. complicated by 1997: at term. BW: 8 pounds 2 oz. 2001: at term. BW: 8 pounds 5 oz. VTOP x 1 PAST MEDICAL HISTORY: chronic hypertension x 6 years, advanced maternal age, coronary artery disease history of strokes. Baseline 24 hour urine: n/a Recent 24 hour urine: 799.50 mcg Patient denies diabetes or asthma Physical Exam on Evaluation: Current blood pressure: ------ [facility] Ultrasonography * See reports in patients chart MRI: 1.6 x 1.2 cm hypodense lesion in the left caudate/anterior medial globus pallidus differential includes vascular lesion, chronic ischemia , neuroepithial cyst or cystic neoplasm. but no acute intracranial hemorrhage. c/w history of previous stroke. NEUROLOGY CONSULTATION: Spoke to patient at length and in 2010 she had well described ischemic stroke classical right hemiparesis and aphasia good recovery since then with no seizures or any complications around 2017 dx of mild coronary disease and advanced small vessel disease cardiology tx/ed with niacin and BP control and since then excellent level of function she is stable neuro lockhart and CT to me is only ischemic stroke no risk for seizures... BP control is best approach does not need Elliquis or drugs of the NCOA class IMO Available Admission Labs: See reports in patients hospital chart WBC: 13.3 HGB: 10.9 HCT: 32.4 PLT: 305 AST: 12 ALT: 8 Uric Acid: 6.3 LDH: 168 No serological evidence of HELLP 24 hour urine: 799.50 Past History Past Medical History: hypertension Past Surgical History: no surgical history Family/Genetic History: none - Obstetrical History : 4 Medications and Allergies Allergies Allergy/AdvReac Type Severity Reaction Status Date / Time No Known Allergies Allergy Verified 11/23/18 14:54 Home Medications Medication Instructions Recorded Confirmed Last Taken Type Aspirin [Lo-Dose Aspirin EC] 81 mg PO DAILY 09/23/18 11/23/18 09/23/18 05:00 H istory Ferrous Sulfate [Iron] 325 mg PO DAILY 09/23/18 11/23/18 09/23/18 05:00 History Vit-Fe Fumar-FA [ 1 tab PO QDAY 09/23/18 11/23/18 09/23/18 05:00 History Vitamin] cloNIDine [Catapres] 0.1 mg PO PRN 09/23/18 11/23/18 Unknown History Labetalol [Normodyne TAB] 300 mg PO BID #90 tablet 09/26/18 11/23/18 Unknown Rx Active Meds: Active Medications Acetaminophen (Tylenol) 650 mg PO Q4H PRN PRN Reason: Pain MILD(1-3)/Fever >100.5/ALMODOVAR Last Admin: 11/23/18 21:15 Dose: 650 mg Documented by: Acetaminophen/Butalbital/Caffeine (Fioricet) 2 tab PO Q4H PRN PRN Reason: Headache Last Admin: 11/26/18 15:39 Dose: 2 tab Documented by: Al Hydrox/Mg Hydrox/Simethicone (Alum-Mag Hydrox-Simeth [phone]/5ml) 30 ml PO Q4H PRN PRN Reason: Indigestion Last Admin: 11/25/18 20:20 Dose: 30 ml Documented by: Butorphanol Tartrate (Stadol) 2 mg IV Q2H PRN PRN Reason: Pain, Moderate (4-6) Last Admin: 11/29/18 10:51 Dose: 2 mg Documented by: Clonidine HCl (Catapres) 0.1 mg PO Q4H PRN PRN Reason: Blood Pressure Last Admin: 11/28/18 06:33 Dose: 0.1 mg Documented by: Docusate Sodium (Colace) 100 mg PO Q12H PRN PRN Reason: Constipation Last Admin: 11/24/18 21:52 Dose: 100 mg Documented by: Hydralazine HCl (Apresoline) 10 mg IV Q30MIN PRN PRN Reason: HTN >=160/100 Last Admin: 11/29/18 17:30 Dose: 10 mg Documented by: Lactated Ringer's (Lactated Ringers) 1,000 mls @ 125 mls/hr IV DIRECT [facility] Labetalol HCl (Normodyne) 10 mg IV Q30MIN PRN PRN Reason: Blood Pressure Last Admin: 11/24/18 17:30 Dose: 10 mg Documented by: Labetalol HCl (Normodyne) 400 mg PO Q8HR [facility] Last Admin: 11/30/18 05:16 Dose: 400 mg Documented by: Magnesium Hydroxide (Milk Of Magnesia) 30 ml PO QHS PRN PRN Reason: Laxative Effect Methyldopa (Aldomet) 250 mg PO Q12H [facility] Last Admin: 11/29/18 21:39 Dose: 250 mg Documented by: Multivitamins/Iron/Calcium ( Vitamin) 1 each PO QDAY [facility] Last Admin: 11/29/18 10:42 Dose: 1 each Documented by: Ondansetron HCl (Zofran) 4 mg IV Q6H PRN PRN Reason: Nausea And Vomiting Last Admin: 11/29/18 10:43 Dose: 4 mg Documented by: Promethazine HCl (Phenergan) 25 mg PO Q6H PRN PRN Reason: Nausea And Vomiting - Vital Signs Vital signs: Vital Signs Pulse BP 96 H 224/113 11/23/18 14:33 11/23/18 14:33 Temp Pulse Resp BP Pulse Ox 98.2 F 65 18 152/77 96 11/30/18 03:30 11/30/18 09:26 11/30/18 03:30 11/30/18 09:26 11/30/18 03:30 Results Result Diagrams: 11/23/18 15:05 11/23/18 15:05 All other labs normal. Assessment and Plan ASSESSMENT * This 43 year old para 3013 admitted for in order to rule out superimposed preeclampsia. * Advanced maternal age, * Chronic hypertension x 6 years, * Coronary artery disease * History of strokes * Given the current gestational age, we would recommend optimizing the patients blood pressure with antihypertensive medications and delivery for signs and symptoms of severe superimposed preelcampsia (see below). RECOMMENDATIONS: Would proceed as follows: 1. Kindly follow-up the results of the patients 24 hour urinalysis. 2. ANTI-HYPERTENSIVE MEDICATION: Labetalol (increased to 400 TID). 3. Neurology consultation appreciated. See above. 4. Our goal at present is to decrease blood pressure (while avoiding headache) to stabilize . 5. Proteinuria. 6. Patient complains of MILD headache relieved with medication. Does NOT appear to be related to preecampsia; however, we have indicated that if she continues to c/o significant headache or neurological symptoms this would be a case for a low threshold for delivery. 7. Our goal is to get this patient to 34 weeks. 8. She is NOT a candidate for discharge at this time. 9. If the patient develops any of the criteria for delivery (see below) during observation we would recommend taking steps to deliver this . 10. Would proceed as follows: 11. Agree with admission for serial BP, urinalysis, PIH labs and observation. Kindly contact [facility] if there is any question as to whether this patient is a candidate for delivery. At 31 weeks gestation; it would appear that there is some benefit to an expectant management protocol to prolong gestation in order to improve outcome without increasing maternal morbidity. In a patient with MILD preeclampsia we recommend DELIVERY at 37 weeks. In a patient with SEVERE preeclampsia we recommend DELIVERY either AT DIAGNOSIS or at 34 weeks gestation. Reference: REFERENCE: Medically indicated late- and early-term deliveries. Committee Opinion No. 560. [employer]. Obstet Gynecol 2013;121:66076. The indications for discontinuation of expectant management and DELIVERY in this patient would include ANY of the following: * heart rate abnormalities, (ie, bradycardia , repetitive late or variable decelerations) * Significant new onset proteinuria (see above) * Thrombocytopenia * Hemolysis, * Elevation in liver function tests * Blood pressure that is very labile or poorly controlled with reasonable doses of intravenous labetalol * growth restriction. * Symptoms of severe pre-eclampsia epigastric discomfort, headache, dizziness, blurred vision, RUQ pain, seizure. * Standard obstetrical indications Thank you for allowing us to participate in the care of this patient. We look forward to the opportunity to assist in her continued management. If you have any questions, we may be reached [phone].
[2018-11-30] MEDS: ALDOMET PO SCH ×2 (10:24→21:01)
[2018-11-30] MEDS: PRENATAL VITAMIN PO SCH (10:25)
[2018-11-30] MEDS: COLACE PO PRN (10:25)
[2018-11-30] MEDS: APRESOLINE IV PRN (10:33)
[2018-12-01] MEDS: NORMODYNE PO SCH ×3 (05:45→21:53)
[2018-12-01] MEDS ORDERED: ALDOMET PO SCH ×2 (09:00)
[2018-12-01] MEDS: ALDOMET PO SCH ×2 (10:20→21:51)
[2018-12-01] MEDS: PRENATAL VITAMIN PO SCH (10:20)
--- NOTE | 2018-12-01 14:03 | Progress Note ---
Assessment and Plan - Patient Problems (1) 30 weeks gestation of Onset Date: 11/23/18 Current Visit: Yes Status: Acute (2) Advanced maternal age (AMA), 40 years or greater Onset Date: ~09/24/18 Current Visit: No Status: Chronic (3) Chronic hypertension affecting Onset Date: ~09/23/18 Current Visit: No Status: Chronic (4) History of CVA (cerebrovascular accident) Onset Date: Unknown Current Visit: No Status: Chronic (5) 31 weeks gestation of Onset Date: 11/30/18 Current Visit: Yes Status: Acute Plan to address problem: A: IUP @ 31 1/7 weeks Chronic hypertension - improved on Labetolol 400mg TID; Aldomet 500mg BID and Clonidine 0.1mg Q4h Preeclampsia - stable AMA History of stroke 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 for evaluation of elevated BP's 206/106 in the office. She received care at [facility] and co-managed by [facility] for Chronic hypertension, AMA and history of stroke. She is on labetolol 400mg TID, Aldomet 500mg BID and Clonidine 0.1mg prn and Low dose aspirin. She had a severe headache - now improved with Fiorcet. CT Scan showed a 1.6 x 1.2cm brain lesion for which Neurology was consulted. MRI consistent with chronic ischemic changes. PIH labs are WNL and 24hour urine showed 799.50mg Protein. BPP 8/8 with Normal Dopplers 11/26/18 and Repeat PIH labs - WNL. Today she is well without complaints. Patient reports: new complaints (re-occurring headaches), movement normal, other (mild ALMODOVAR but not like the other day), no loss of fluid, no vaginal bleeding, no contractions Objective - Vital Signs Vital Signs: Vital Signs - 12hr 12/01/18 12/01/18 12/01/18 05:45 09:48 09:49 Temperature 97.9 F Pulse Rate 68 64 64 Respiratory 18 Rate Blood Pressure 139/68 152/73 Blood Pressure 152/73 [Left] O2 Sat by Pulse Oximetry 12/01/18 12/01/18 12/01/18 10:20 12:56 12:57 Temperature Pulse Rate 64 80 83 Respiratory Rate Blood Pressure 152/73 171/94 Blood Pressure [Left] O2 Sat by Pulse 98 Oximetry 12/01/18 12/01/18 13:50 13:51 Temperature Pulse Rate 84 84 Respiratory Rate Blood Pressure 158/78 158/78 Blood Pressure [Left] O2 Sat by Pulse Oximetry - Exam Abdomen: Present: normal appearance, soft Uterus: Present: normal FHR: category 1 Uterine Contraction Monitor Mode: External Uterine Contraction Pattern: Absent - Labs Labs: Abnormal Labs 11/23/18 11/23/18 11/23/18 15:05 15:05 22:04 WBC 13.3 H Lymph % (Auto) 10.5 L Seg Neutrophils % 84.9 H Seg Neutrophils # 11.3 H Creatinine 0.6 L Magnesium 4.80 H Ur Total Protein 24 Hr Urine Total Protein 11/24/18 11/24/18 11/24/18 00:33 05:55 10:55 WBC Lymph % (Auto) Seg Neutrophils % Seg Neutrophils # Creatinine Magnesium 5.30 H 6.60 H 5.30 H Ur Total Protein 24 Hr Urine Total Protein 11/24/18 16:05 WBC Lymph % (Auto) Seg Neutrophils % Seg Neutrophils # Creatinine Magnesium Ur Total Protein 24 Hr 799.50 H Urine Total Protein 39 H
[2018-12-02] MEDS: STADOL IV PRN ×3 (00:48→15:03)
[2018-12-02] MEDS: NORMODYNE PO SCH ×3 (06:03→22:00)
--- NOTE | 2018-12-02 08:54 | Progress Note ---
Assessment and Plan - Patient Problems (1) 30 weeks gestation of Onset Date: 11/23/18 Current Visit: Yes Status: Acute (2) Advanced maternal age (AMA), 40 years or greater Onset Date: ~09/24/18 Current Visit: No Status: Chronic (3) Chronic hypertension affecting Onset Date: ~09/23/18 Current Visit: No Status: Chronic (4) History of CVA (cerebrovascular accident) Onset Date: Unknown Current Visit: No Status: Chronic (5) 31 weeks gestation of Onset Date: 11/30/18 Current Visit: Yes Status: Acute Plan to address problem: A: IUP @ 31 2/7 weeks Chronic hypertension - improved on Labetolol 400mg TID; Aldomet 500mg BID and Clonidine 0.1mg Q4h Preeclampsia - stable AMA History of stroke 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 She received care at [facility] and co-managed by [facility] for Chronic hypertension, AMA and history of stroke. She is on labetolol 400mg TID, Aldomet 500mg BID and Clonidine 0.1mg prn and Low dose aspirin. She had a severe headache - now improved with Fiorcet. CT Scan showed a 1.6 x 1.2cm brain lesion for which Neurology was consulted. MRI consistent with chronic ischemic changes. PIH labs are WNL and 24hour urine showed 799.50mg Protein. BPP 8/8 with Normal Dopplers 11/26/18 and Repeat PIH labs - WNL. Today she is well without complaints. Patient reports: new complaints (re-occurring headaches), movement normal, other (mild ALMODOVAR but not like the other day), no loss of fluid, no vaginal bleeding, no contractions Objective - Vital Signs Vital Signs: Vital Signs - 12hr 12/01/18 12/01/18 12/01/18 21:25 21:51 21:53 Temperature Pulse Rate 80 78 78 Respiratory Rate Blood Pressure 169/83 176/89 176/89 Blood Pressure [Left] 12/01/18 12/01/18 12/02/18 22:24 23:24 00:25 Temperature Pulse Rate 83 77 78 Respiratory Rate Blood Pressure 179/90 148/78 209/102 Blood Pressure [Left] 12/02/18 12/02/18 12/02/18 00:36 00:48 01:25 Temperature 98.1 F Pulse Rate 74 64 Respiratory 20 18 Rate Blood Pressure 160/76 148/80 Blood Pressure 160/76 [Left] 12/02/18 12/02/18 12/02/18 02:24 03:25 03:55 Temperature 97.9 F Pulse Rate 80 67 67 Respiratory 18 Rate Blood Pressure 138/78 171/87 154/85 Blood Pressure 154/85 [Left] 12/02/18 12/02/18 12/02/18 04:24 05:26 06:01 Temperature Pulse Rate 65 71 83 Respiratory Rate Blood Pressure 144/85 156/74 125/67 Blood Pressure [Left] 12/02/18 12/02/18 12/02/18 06:03 06:26 07:24 Temperature Pulse Rate 81 75 75 Respiratory Rate Blood Pressure 129/67 157/78 140/79 Blood Pressure [Left] 12/02/18 08:26 Temperature Pulse Rate 71 Respiratory Rate Blood Pressure 148/78 Blood Pressure [Left] - Exam Breasts: deferred Abdomen: Present: normal appearance, soft Uterus: Present: normal FHR: category 1 Uterine Contraction Monitor Mode: External Uterine Contraction Pattern: Absent - Labs Labs: Abnormal Labs 11/23/18 11/23/18 11/23/18 15:05 15:05 22:04 WBC 13.3 H Lymph % (Auto) 10.5 L Seg Neutrophils % 84.9 H Seg Neutrophils # 11.3 H Creatinine 0.6 L Magnesium 4.80 H Ur Total Protein 24 Hr Urine Total Protein 11/24/18 11/24/18 11/24/18 00:33 05:55 10:55 WBC Lymph % (Auto) Seg Neutrophils % Seg Neutrophils # Creatinine Magnesium 5.30 H 6.60 H 5.30 H Ur Total Protein 24 Hr Urine Total Protein 11/24/18 16:05 WBC Lymph % (Auto) Seg Neutrophils % Seg Neutrophils # Creatinine Magnesium Ur Total Protein 24 Hr 799.50 H Urine Total Protein 39 H
[2018-12-02] MEDS: PRENATAL VITAMIN PO SCH (11:06)
[2018-12-02] MEDS: ALDOMET PO SCH ×2 (11:07→22:00)
--- NOTE | 2018-12-02 12:32 | Consultation ---
History of Present Illness Consult date: 12/02/18 Reason for consult: other (CHTN) History of present illness: Ms. Jason is a 43 year old para [id number] who was sent to [facility] for admission following an [facility] appointment for ultrasound due to poorly controlled hypertension. She is being followed by [facility] for advanced maternal age, chronic hypertension x 6 years, coronary artery disease and a history of strokes. Patient is currently 31.3 weeks based on an YUNIER of 02/01/19. She is s/p Magnesium Sulfate and Betamethasone x 2, 24hour urine protein 779.50mg. Ct scan and MRI performed during hospital stay- old infarct noted Continued labile BPs noted with management on Methyldopa and Labetalol with Hydralazine prn and Clonidine prn. She denies current headache, RUQ pain, visual disturbances. 1-2+ edema noted in bilateral upper and lower extremities. She denies LOF, contractions, and bleeding. She admits to positive movements. She reports overnight contractions that have since been relieved by pain management. Past History Past Medical History: hypertension Past Surgical History: no surgical history Family/Genetic History: none - Obstetrical History : 4 Medications and Allergies Allergies Allergy/AdvReac Type Severity Reaction Status Date / Time No Known Allergies Allergy Verified 11/23/18 14:54 Home Medications Medication Instructions Recorded Confirmed Last Taken Type Aspirin [Lo-Dose Aspirin EC] 81 mg PO DAILY 09/23/18 11/23/18 09/23/18 05:00 History Ferrous Sulfate [Iron] 325 mg PO DAILY 09/23/18 11/23/18 09/23/18 05:00 History Vit-Fe Fumar-FA [ 1 tab PO QDAY 09/23/18 11/23/18 09/23/18 05:00 History Vitamin] cloNIDine [Catapres] 0.1 mg PO PRN 09/23/18 11/23/18 Unknown History Labetalol [Normodyne TAB] 300 mg PO BID #90 tablet 09/26/18 11/23/18 Unknown Rx Active Meds: Active Medications Acetaminophen (Tylenol) 650 mg PO Q4H PRN PRN Reason: Pain MILD(1-3)/Fever >100.5/ALMODOVAR Last Admin: 11/23/18 21:15 Dose: 650 mg Documented by: Acetaminophen/Butalbital/Caffeine (Fioricet) 2 tab PO Q4H PRN PRN Reason: Headache Last Admin: 11/26/18 15:39 Dose: 2 tab Documented by: Al Hydrox/Mg Hydrox/Simethicone (Alum-Mag Hydrox-Simeth [id number]/5ml) 30 ml PO Q4H PRN PRN Reason: Indigestion Last Admin: 11/25/18 20:20 Dose: 30 ml Documented by: Butorphanol Tartrate (Stadol) 2 mg IV Q2H PRN PRN Reason: Pain, Moderate (4-6) Last Admin: 12/02/18 03:03 Dose: 2 mg Documented by: Clonidine HCl (Catapres) 0.1 mg PO Q4H PRN PRN Reason: Blood Pressure Last Admin: 11/28/18 06:33 Dose: 0.1 mg Documented by: Docusate Sodium (Colace) 100 mg PO Q12H PRN PRN Reason: Constipation Last Admin: 11/30/18 10:25 Dose: 100 mg Documented by: Hydralazine HCl (Apresoline) 10 mg IV Q30MIN PRN PRN Reason: HTN >=160/100 Last Admin: 11/30/18 10:33 Dose: 10 mg Documented by: Labetalol HCl (Normodyne) 400 mg PO Q8HR [facility] Last Admin: 12/02/18 06:03 Dose: 400 mg Documented by: Magnesium Hydroxide (Milk Of Magnesia) 30 ml PO QHS PRN PRN Reason: Laxative Effect Methyldopa (Aldomet) 500 mg PO Q12HR [facility] Last Admin: 12/02/18 11:07 Dose: 500 mg Documented by: Multivitamins/Iron/Calcium ( Vitamin) 1 each PO QDAY [facility] Last Admin: 12/02/18 11:06 Dose: 1 each Documented by: Ondansetron HCl (Zofran) 4 mg IV Q6H PRN PRN Reason: Nausea And Vomiting Last Admin: 11/29/18 10:43 Dose: 4 mg Documented by: Promethazine HCl (Phenergan) 25 mg PO Q6H PRN PRN Reason: Nausea And Vomiting Last Admin: 11/30/18 10:26 Dose: 25 mg Documented by: Review of Systems Constitutional: other (denies fatigue,fevers) Eyes: other (denies visual disturbances) Ears, nose, mouth and throat: deferred Cardiovascular: other (denies chest pain, palpitations, ) Respiratory: other (denies sob, wheezing, coughing) Breasts: deferred Gastrointestinal: other (denies diarrhea, constipation, nausea, RUQ pain) Genitourinary: other (denies contractions, leaking of fluid, and bleeding) Rectal Exam: deferred Neurological: other (denies headache) - Vital Signs Vital signs: Vital Signs Pulse BP 96 H 224/113 11/23/18 14:33 11/23/18 14:33 Temp Pulse Resp BP Pulse Ox 97.6 F 68 16 178/87 98 12/02/18 12:09 12/02/18 12:26 12/02/18 12:09 12/02/18 12:26 12/01/18 12:56 - Physical Exam Breasts: Positive: deferred Cardiovascular: Regular rate, Normal S1, Normal S2 Lungs: Positive: Clear to auscultation, Normal air movement Abdomen: Positive: soft, other (gravid, nontender) Results Result Diagrams: 11/23/18 15:05 11/23/18 15:05 All other labs normal. Assessment and Plan PAST OB HISTORY: 1992: at term. BW: 7 pounds 5 oz. complicated by 1997: at term. BW: 8 pounds 2 oz. 2001: at term. BW: 8 pounds 5 oz. VTOP x 1 PAST MEDICAL HISTORY: chronic hypertension x 6 years, advanced maternal age, coronary artery disease history of strokes. Baseline 24 hour urine: n/a A- Lauren IUP at 31.2 weeks ( YUNIER 02/01/19) Labile BPs: 120s-150s/70s-90s, outliers 170s-200/90s-100s- Pt received prn dose of Hydralazine during consult with pt and scheduled Labetalol Denies Preeclampsia symptoms currently Denies LOF, Bleeding, Contractions Positive Movements S/P Magnesium Sulfate and Betamethasone x 2 S/P CT scan and MRI for stroke hx Poorly controlled CHTN Stroke hc CAD hx AMA P- Continue with current plan of care. Goal to continue to 34 week gestation Deliver patient with indications listed below: The indications for discontinuation of expectant management and DELIVERY in this patient would include ANY of the following: * heart rate abnormalities, (ie, bradycardia , repetitive late or variable decelerations) * Significant new onset proteinuria (see above) * Thrombocytopenia * Hemolysis, * Elevation in liver function tests * Blood pressure that is very labile or poorly controlled with reasonable doses of intravenous labetalol or hydralazine * growth restriction. * Symptoms of severe pre-eclampsia epigastric discomfort, headache, dizziness, blurred vision, RUQ pain, seizure. * Standard obstetrical indications * Nonreassuring FHR BPP and dopplers twice weekly monitoring Qshift and for signs of PTL Continue with current BP management Thank you for your consult. For additional questions or concerns, please contact [facility] organizational effectiveness director .
[2018-12-02] MEDS: APRESOLINE IV PRN (12:44)
[2018-12-03] MEDS: NORMODYNE PO SCH ×3 (06:34→21:59)
[2018-12-03] MEDS: PRENATAL VITAMIN PO SCH (09:44)
[2018-12-03] MEDS: ALDOMET PO SCH ×2 (09:44→23:16)
--- NOTE | 2018-12-03 09:45 | Progress Note ---
Assessment and Plan - Patient Problems (1) 30 weeks gestation of Onset Date: 11/23/18 Current Visit: Yes Status: Acute (2) Advanced maternal age (AMA), 40 years or greater Onset Date: ~09/24/18 Current Visit: No Status: Chronic (3) Chronic hypertension affecting Onset Date: ~09/23/18 Current Visit: No Status: Chronic (4) History of CVA (cerebrovascular accident) Onset Date: Unknown Current Visit: No Status: Chronic (5) 31 weeks gestation of Onset Date: 11/30/18 Current Visit: Yes Status: Acute Plan to address problem: A: IUP @ 31 3/7 weeks Chronic hypertension - improved on Labetolol 400mg TID; Aldomet 500mg BID and Clonidine 0.1mg Q4h Preeclampsia - stable AMA History of stroke 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 She received care at [facility] and co-managed by [facility] for Chronic hypertension, AMA and history of stroke. She is on labetolol 400mg TID, Aldomet 500mg BID and Clonidine 0.1mg prn and Low dose aspirin. She had a severe headache - now improved with Fiorcet. CT Scan showed a 1.6 x 1.2cm brain lesion for which Neurology was consulted. MRI consistent with chronic ischemic changes. PIH labs are WNL and 24hour urine showed 799.50mg Protein. BPP 8/8 with Normal Dopplers 11/26/18 and Repeat PIH labs - WNL. Today she is well without complaints. Patient reports: new complaints (re-occurring headaches), movement normal, other (mild ALMODOVAR but not like the other day), no loss of fluid, no vaginal bleeding, no contractions Objective - Vital Signs Vital Signs: Vital Signs - 12hr 12/02/18 12/02/18 12/02/18 21:48 22:03 22:18 Temperature Pulse Rate 80 78 76 Respiratory Rate Blood Pressure 119/61 119/64 113/59 Blood Pressure [Left] 12/02/18 12/02/18 12/02/18 22:33 22:39 22:48 Temperature Pulse Rate 76 76 77 Respiratory Rate Blood Pressure 116/58 130/65 118/60 Blood Pressure [Left] 12/02/18 12/02/18 12/02/18 23:03 23:18 23:34 Temperature Pulse Rate 72 73 56 L Respiratory Rate Blood Pressure 120/63 129/63 157/77 Blood Pressure [Left] 12/02/18 12/03/18 12/03/18 23:49 00:03 00:18 Temperature 97.8 F Pulse Rate 78 65 60 Respiratory 18 Rate Blood Pressure 135/66 142/73 145/71 Blood Pressure 145/71 [Left] 12/03/18 12/03/18 12/03/18 00:35 00:48 01:06 Temperature Pulse Rate 68 71 63 Respiratory Rate Blood Pressure 145/81 135/73 160/84 Blood Pressure [Left] 12/03/18 12/03/18 12/03/18 01:20 01:35 01:48 Temperature Pulse Rate 64 71 66 Respiratory Rate Blood Pressure 146/72 141/87 139/71 Blood Pressure [Left] 12/03/18 12/03/18 12/03/18 02:03 02:19 02:34 Temperature Pulse Rate 61 71 57 L Respiratory Rate Blood Pressure 146/80 175/85 179/84 Blood Pressure [Left] 12/03/18 12/03/18 12/03/18 02:49 03:04 04:10 Temperature 98.1 F Pulse Rate 65 70 80 Respiratory 20 Rate Blood Pressure 178/80 166/81 147/86 Blood Pressure 147/86 [Left] 12/03/18 12/03/18 12/03/18 04:18 04:33 04:48 Temperature Pulse Rate 85 78 75 Respiratory Rate Blood Pressure 153/84 158/84 150/78 Blood Pressure [Left] 12/03/18 12/03/18 12/03/18 05:03 05:18 05:33 Temperature Pulse Rate 74 77 75 Respiratory Rate Blood Pressure 150/81 155/80 149/77 Blood Pressure [Left] 12/03/18 12/03/18 12/03/18 05:48 06:03 06:18 Temperature Pulse Rate 80 84 77 Respiratory Rate Blood Pressure 144/74 149/79 157/78 Blood Pressure [Left] 12/03/18 12/03/18 12/03/18 06:33 06:34 06:48 Temperature Pulse Rate 74 74 78 Respiratory Rate Blood Pressure 155/84 155/84 158/85 Blood Pressure [Left] 12/03/18 12/03/18 12/03/18 07:03 07:18 07:33 Temperature Pulse Rate 77 74 76 Respiratory Rate Blood Pressure 161/85 149/79 152/81 Blood Pressure [Left] 12/03/18 12/03/18 12/03/18 07:48 07:52 08:52 Temperature 98.2 F Pulse Rate 72 77 79 Respiratory 18 Rate Blood Pressure 148/84 154/89 137/64 Blood Pressure 148/84 [Left] 12/03/18 12/03/18 09:43 09:44 Temperature Pulse Rate 71 71 Respiratory Rate Blood Pressure 177/89 177/89 Blood Pressure [Left] - Exam Abdomen: Present: normal appearance, soft Uterus: Present: normal FHR: category 1 Uterine Contraction Monitor Mode: External Uterine Contraction Pattern: Absent - Labs Labs: Abnormal Labs 11/23/18 11/23/18 11/23/18 15:05 15:05 22:04 WBC 13.3 H Lymph % (Auto) 10.5 L Seg Neutrophils % 84.9 H Seg Neutrophils # 11.3 H Creatinine 0.6 L Magnesium 4.80 H Ur Total Protein 24 Hr Urine Total Protein 11/24/18 11/24/18 11/24/18 00:33 05:55 10:55 WBC Lymph % (Auto) Seg Neutrophils % Seg Neutrophils # Creatinine Magnesium 5.30 H 6.60 H 5.30 H Ur Total Protein 24 Hr Urine Total Protein 11/24/18 16:05 WBC Lymph % (Auto) Seg Neutrophils % Seg Neutrophils # Creatinine Magnesium Ur Total Protein 24 Hr 799.50 H Urine Total Protein 39 H
[2018-12-04] MEDS: STADOL IV PRN (00:11)
[2018-12-04] MEDS: NORMODYNE PO SCH ×3 (06:32→22:53)
[2018-12-04] MEDS: TYLENOL PO PRN (06:35)
[2018-12-04] MEDS: ALDOMET PO SCH ×2 (10:32→22:50)
[2018-12-04] MEDS: PRENATAL VITAMIN PO SCH (10:32)
--- NOTE | 2018-12-04 14:58 | Progress Note ---
Assessment and Plan - Patient Problems (1) 31 weeks gestation of Onset Date: 11/30/18 Current Visit: Yes Status: Acute Plan to address problem: s/p steroids for lung maturity s/p magnesium sulfate for neuroprotection (2) Advanced maternal age (AMA), 40 years or greater Onset Date: ~09/24/18 Current Visit: No Status: Chronic (3) Chronic hypertension affecting Onset Date: ~09/23/18 Current Visit: No Status: Chronic Plan to address problem: BP normotensive on Labetolol, Aldomet scheduled and Clonidine, Hydralazine prn [facility] consult done. Recommendation biweekly BPP and dopplers, Qshift NST and delivery parameters to discontinue expectant management are as follows: * heart rate abnormalities, (ie, bradycardia , repetitive late or variable decelerations) * Significant new onset proteinuria (see above) * Thrombocytopenia * Hemolysis, * Elevation in liver function tests * Blood pressure that is very labile or poorly controlled with reasonable doses of intravenous labetalol or hydralazine * growth restriction. * Symptoms of severe pre-eclampsia epigastric discomfort, headache, dizziness, blurred vision, RUQ pain, seizure. * Standard obstetrical indications * Nonreassuring FHR (4) History of CVA (cerebrovascular accident) Onset Date: Unknown Current Visit: No Status: Chronic Plan to address problem: s/p MRI, Head CT Subjective - Subjective Principal diagnosis: IUP @ 31 3/7 weeks; Preeclampsia; Benign brain lesion Patient reports: new complaints (re-occurring headaches), movement normal, other (mild ALMODOVAR but not like the other day), no loss of fluid, no vaginal bleeding, no contractions Objective - Vital Signs Vital Signs: Vital Signs - 12hr 12/04/18 12/04/18 12/04/18 03:52 04:02 06:00 Temperature 97.8 F Pulse Rate 72 69 Respiratory 18 Rate Blood Pressure 135/81 170/84 12/04/18 12/04/18 12/04/18 06:32 06:53 07:26 Temperature Pulse Rate 69 65 68 Respiratory Rate Blood Pressure 170/84 179/80 158/75 12/04/18 12/04/18 12/04/18 07:53 08:52 09:53 Temperature Pulse Rate 75 72 71 Respiratory Rate Blood Pressure 163/79 185/91 193/91 0312/04/18 12/04/18 10:32 10:36 11:52 Temperature Pulse Rate 72 72 80 Respiratory Rate Blood Pressure 177/88 177/88 143/76 12/04/18 12/04/18 12/04/18 14:24 14:26 14:52 Temperature Pulse Rate 74 75 76 Respiratory Rate Blood Pressure 118/68 116/64 122/73 - Labs Labs: Abnormal Labs 11/23/18 11/23/18 11/23/18 15:05 15:05 22:04 WBC 13.3 H Lymph % (Auto) 10.5 L Seg Neutrophils % 84.9 H Seg Neutrophils # 11.3 H Creatinine 0.6 L Magnesium 4.80 H Ur Total Protein 24 Hr Urine Total Protein 11/24/18 11/24/18 11/24/18 00:33 05:55 10:55 WBC Lymph % (Auto) Seg Neutrophils % Seg Neutrophils # Creatinine Magnesium 5.30 H 6.60 H 5.30 H Ur Total Protein 24 Hr Urine Total Protein 11/24/18 16:05 WBC Lymph % (Auto) Seg Neutrophils % Seg Neutrophils # Creatinine Magnesium Ur Total Protein 24 Hr 799.50 H Urine Total Protein 39 H
--- NOTE | 2018-12-04 18:17 | Ultrasound Report ---
PROCEDURE: US OB VELOCIMETRY UMBILCAL ART TECHNIQUE: OB ultrasound obtained. HISTORY: chronic hypertension, well being COMPARISONS: 11/29/2018. FINDINGS: Single IUP visualized. Viable fetus with heart rate of 134 bpm. S/D ratio is 3.22 with normal waveform. RI average is 0.69 with normal waveform. IMPRESSION: Doppler umbilical artery measurements within normal limits. This document is electronically signed by Jacinto Layton MD., December 04 2018 06:16:20 PM ET
--- NOTE | 2018-12-04 18:20 | Ultrasound Report ---
PROCEDURE: US OB BPP WO NON-STRESS TECHNIQUE: Ultrasound for biophysical profile obtained. HISTORY: chronic hypertension, well being COMPARISONS: 11/29/2018. FINDINGS: Single IUP visualized. Viable fetus with heart rate of 134 bpm. Biophysical profile is 8/8. IMPRESSION: Biophysical profile is 8/8.. This document is electronically signed by Jacinto Layton MD., December 04 2018 06:18:58 PM ET
[2018-12-05] MEDS ORDERED: LACTATED RINGERS 1,000 ML ONE (00:13)
[2018-12-05] MEDS: ALDOMET PO SCH ×3 (00:16→22:31)
[2018-12-05] MEDS ORDERED: LACTATED RINGERS 1,000 ML IV ONE (00:20)
[2018-12-05] MEDS: CATAPRES PO PRN ×2 (01:29→20:11)
[2018-12-05] MEDS: APRESOLINE IV PRN (03:18)
[2018-12-05] MEDS: NORMODYNE PO SCH ×3 (05:41→22:32)
--- NOTE | 2018-12-05 09:24 | Progress Note ---
Subjective Date of service: 12/05/18 Principal diagnosis: IUP @ 31 3/7 weeks; Preeclampsia; Benign brain lesion Interval history: neuro follow up the BP is well maintained and meds are effective will continue to observe closely- at this point risk of recurrent stroke is minimized Objective - Vital Sign Vital Signs - 12hr 12/04/18 12/04/18 12/04/18 21:52 22:51 22:53 Temperature Pulse Rate 62 60 60 Respiratory Rate Blood Pressure 141/75 143/76 143/76 12/04/18 12/04/18 12/05/18 23:00 23:53 00:16 Temperature 98.4 F Pulse Rate 74 74 Respiratory 16 Rate Blood Pressure 166/86 166/86 12/05/18 12/05/18 12/05/18 00:53 01:17 01:29 Temperature Pulse Rate 71 69 69 Respiratory Rate Blood Pressure 172/84 182/96 182/96 12/05/18 12/05/18 12/05/18 01:32 02:02 02:32 Temperature Pulse Rate 72 71 66 Respiratory Rate Blood Pressure 163/86 185/96 177/85 12/05/18 12/05/18 12/05/18 03:02 03:18 03:24 Temperature 98.3 F Pulse Rate 67 67 Respiratory 16 Rate Blood Pressure 182/92 182/92 12/05/18 12/05/18 12/05/18 03:27 03:59 04:29 Temperature Pulse Rate 65 71 73 Respiratory Rate Blood Pressure 143/71 123/66 131/67 12/05/18 12/05/18 12/05/18 04:59 05:28 05:41 Temperature Pulse Rate 69 69 69 Respiratory Rate Blood Pressure 128/65 142/73 142/73 12/05/18 12/05/18 12/05/18 05:59 06:29 06:58 Temperature Pulse Rate 71 74 68 Respiratory Rate Blood Pressure 125/66 117/61 140/72 12/05/18 12/05/18 12/05/18 07:28 07:58 08:28 Temperature Pulse Rate 68 65 64 Respiratory Rate Blood Pressure 145/78 142/78 145/75 12/05/18 08:58 Temperature Pulse Rate 65 Respiratory Rate Blood Pressure 142/77 - Laboratory Findings CBC and BMP: 11/23/18 15:05 11/23/18 15:05 Abnormal Lab Findings: Abnormal Labs 11/23/18 11/23/18 11/23/18 15:05 15:05 22:04 WBC 13.3 H Lymph % (Auto) 10.5 L Seg Neutrophils % 84.9 H Seg Neutrophils # 11.3 H Creatinine 0.6 L Magnesium 4.80 H Ur Total Protein 24 Hr Urine Total Protein 11/24/18 11/24/18 11/24/18 00:33 05:55 10:55 WBC Lymph % (Auto) Seg Neutrophils % Seg Neutrophils # Creatinine Magnesium 5.30 H 6.60 H 5.30 H Ur Total Protein 24 Hr Urine Total Protein 11/24/18 16:05 WBC Lymph % (Auto) Seg Neutrophils % Seg Neutrophils # Creatinine Magnesium Ur Total Protein 24 Hr 799.50 H Urine Total Protein 39 H
[2018-12-05] MEDS: PRENATAL VITAMIN PO SCH (12:18)
--- NOTE | 2018-12-05 15:15 | Progress Note ---
Assessment and Plan - Patient Problems (1) 31 weeks gestation of Onset Date: 11/30/18 Current Visit: Yes Status: Acute Plan to address problem: s/p steroids for lung maturity s/p magnesium sulfate for neuroprotection (2) Advanced maternal age (AMA), 40 years or greater Onset Date: ~09/24/18 Current Visit: No Status: Chronic (3) Chronic hypertension affecting Onset Date: ~09/23/18 Current Visit: No Status: Chronic Plan to address problem: BP normotensive on Labetolol, Aldomet scheduled and Clonidine, Hydralazine prn [facility] consult done. Recommendation biweekly BPP and dopplers, Qshift NST and delivery parameters to discontinue expectant management are as follows: * heart rate abnormalities, (ie, bradycardia , repetitive late or variable decelerations) * Significant new onset proteinuria (see above) * Thrombocytopenia * Hemolysis, * Elevation in liver function tests * Blood pressure that is very labile or poorly controlled with reasonable doses of intravenous labetalol or hydralazine * growth restriction. * Symptoms of severe pre-eclampsia epigastric discomfort, headache, dizziness, blurred vision, RUQ pain, seizure. * Standard obstetrical indications * Nonreassuring FHR (4) History of CVA (cerebrovascular accident) Onset Date: Unknown Current Visit: No Status: Chronic Plan to address problem: s/p MRI, Head CT Neurology consult done. Subjective - Subjective Principal diagnosis: IUP @ 31 3/7 weeks; Preeclampsia; Benign brain lesion Patient reports: new complaints (re-occurring headaches), movement normal, other (mild ALMODOVAR but not like the other day), no loss of fluid, no vaginal bleeding, no contractions Objective - Vital Signs Vital Signs: Vital Signs - 12hr 12/05/18 12/05/18 12/05/18 03:18 03:24 03:27 Temperature 98.3 F Pulse Rate 67 65 Respiratory 16 Rate Blood Pressure 182/92 143/71 12/05/18 12/05/18 12/05/18 03:59 04:29 04:59 Temperature Pulse Rate 71 73 69 Respiratory Rate Blood Pressure 123/66 131/67 128/65 12/05/18 12/05/18 12/05/18 05:28 05:41 05:59 Temperature Pulse Rate 69 69 71 Respiratory Rate Blood Pressure 142/73 142/73 125/66 12/05/18 12/05/18 12/05/18 06:29 06:58 07:28 Temperature Pulse Rate 74 68 68 Respiratory Rate Blood Pressure 117/61 140/72 145/78 12/05/18 12/05/18 12/05/18 07:30 07:58 08:28 Temperature 98.0 F Pulse Rate 65 64 Respiratory 18 Rate Blood Pressure 142/78 145/75 12/05/18 12/05/18 12/05/18 08:58 09:28 09:59 Temperature Pulse Rate 65 65 64 Respiratory Rate Blood Pressure 142/77 143/77 164/80 12/05/18 12/05/18 12/05/18 10:28 10:58 11:29 Temperature Pulse Rate 69 67 74 Respiratory Rate Blood Pressure 141/70 150/79 155/83 12/05/18 12/05/18 12/05/18 11:59 12:18 12:29 Temperature Pulse Rate 74 74 78 Respiratory Rate Blood Pressure 138/69 138/69 137/79 12/05/18 12/05/18 12/05/18 12:59 13:29 13:59 Temperature Pulse Rate 83 75 76 Respiratory Rate Blood Pressure 132/68 132/74 141/75 12/05/18 12/05/18 12/05/18 14:00 14:29 14:59 Temperature Pulse Rate 76 86 78 Respiratory Rate Blood Pressure 141/76 142/77 130/75 - Labs Labs: Abnormal Labs 11/23/18 11/23/18 11/23/18 15:05 15:05 22:04 WBC 13.3 H Lymph % (Auto) 10.5 L Seg Neutrophils % 84.9 H Seg Neutrophils # 11.3 H Creatinine 0.6 L Magnesium 4.80 H Ur Total Protein 24 Hr Urine Total Protein 11/24/18 11/24/18 11/24/18 00:33 05:55 10:55 WBC Lymph % (Auto) Seg Neutrophils % Seg Neutrophils # Creatinine Magnesium 5.30 H 6.60 H 5.30 H Ur Total Protein 24 Hr Urine Total Protein 11/24/18 16:05 WBC Lymph % (Auto) Seg Neutrophils % Seg Neutrophils # Creatinine Magnesium Ur Total Protein 24 Hr 799.50 H Urine Total Protein 39 H
[2018-12-06] MEDS: CATAPRES PO PRN (01:25)
[2018-12-06] MEDS: APRESOLINE IV PRN ×2 (03:56→19:16)
[2018-12-06] MEDS: NORMODYNE PO SCH ×2 (06:00→13:58)
[2018-12-06] MEDS: ALDOMET PO SCH (10:11)
[2018-12-06] MEDS: PRENATAL VITAMIN PO SCH (10:11)
--- NOTE | 2018-12-06 10:31 | Progress Note ---
Assessment and Plan - Patient Problems (1) 31 weeks gestation of Onset Date: 11/30/18 Current Visit: Yes Status: Acute (2) Chronic hypertension affecting Onset Date: ~09/23/18 Current Visit: No Status: Chronic Plan to address problem: Will continue to monitor BP. Continue labetolol and aldomet. monitoring. (3) Advanced maternal age (AMA), 40 years or greater Onset Date: ~09/24/18 Current Visit: No Status: Chronic (4) History of CVA (cerebrovascular accident) Onset Date: Unknown Current Visit: No Status: Chronic (5) Nonobstructive atherosclerosis of coronary artery Current Visit: No Status: Chronic Subjective - Subjective Date of service: 12/06/18 Principal diagnosis: IUP @ 31 3/7 weeks; Preeclampsia; Benign brain lesion Interval history: Patient is a 43 year old who was admitted for elevated BP. She has a history of chronic HTN, stroke, CAD and has been co-managed with [facility]. She has been on labetolol and aldomet. Her BP has been labile between 140-150's/80/90's. She denies any headache but has reported occasional blurry vision at times since admission. Toxemia labs were normal. She was treated with magnesium sulfate, celestone for FLM completed. tracing is reassuring. Brain CT and MRI showed findings consistent with old infarct from her previous stroke. [facility] and NICU consult were done. Patient reports: new complaints (re-occurring headaches), movement normal, other (mild ALMODOVAR but not like the other day), no loss of fluid, no vaginal bleeding, no contractions Objective - Vital Signs Vital Signs: Vital Signs - 12hr 12/05/18 12/05/18 12/05/18 22:31 22:32 22:39 Temperature Pulse Rate 69 89 72 Respiratory Rate Blood Pressure 157/83 157/83 155/78 Blood Pressure [Left] 12/05/18 12/06/18 12/06/18 23:39 00:00 00:39 Temperature 98.1 F Pulse Rate 66 69 Respiratory 18 Rate Blood Pressure 166/85 168/81 Blood Pressure [Left] 12/06/18 12/06/18 12/06/18 01:25 01:39 02:39 Temperature Pulse Rate 69 68 62 Respiratory Rate Blood Pressure 168/81 166/91 165/88 Blood Pressure [Left] 12/06/18 12/06/18 12/06/18 03:39 03:56 03:58 Temperature 98.1 F Pulse Rate 67 67 Respiratory 16 Rate Blood Pressure 172/88 172/88 Blood Pressure [Left] 12/06/18 12/06/18 12/06/18 04:01 04:15 04:30 Temperature Pulse Rate 67 77 75 Respiratory Rate Blood Pressure 170/92 154/70 141/68 Blood Pressure [Left] 12/06/18 12/06/18 12/06/18 04:45 05:00 05:15 Temperature Pulse Rate 75 77 71 Respiratory Rate Blood Pressure 137/68 138/70 148/77 Blood Pressure [Left] 12/06/18 12/06/18 12/06/18 05:30 05:45 06:00 Temperature Pulse Rate 72 73 77 Respiratory Rate Blood Pressure 156/81 158/82 142/68 Blood Pressure [Left] 12/06/18 12/06/18 12/06/18 07:01 07:48 08:00 Temperature 97.9 F Pulse Rate 70 71 70 Respiratory 18 Rate Blood Pressure 151/81 156/77 163/85 Blood Pressure 156/77 [Left] 12/06/18 12/06/18 12/06/18 09:01 10:01 10:11 Temperature Pulse Rate 65 75 75 Respiratory Rate Blood Pressure 153/82 155/79 155/79 Blood Pressure [Left] - Exam Cardiovascular: Normal S1, Normal S2 Lungs: Clear to auscultation Vulva: both: normal FHR: category 1 Uterine Contraction Monitor Mode: External Uterine Contraction Pattern: Absent Deep Tendon Reflex Grade: Normal +2 - Labs Labs: Abnormal Labs 11/23/18 11/23/18 11/23/18 15:05 15:05 22:04 WBC 13.3 H Lymph % (Auto) 10.5 L Seg Neutrophils % 84.9 H Seg Neutrophils # 11.3 H Creatinine 0.6 L Magnesium 4.80 H Ur Total Protein 24 Hr Urine Total Protein 11/24/18 11/24/18 11/24/18 00:33 05:55 10:55 WBC Lymph % (Auto) Seg Neutrophils % Seg Neutrophils # Creatinine Magnesium 5.30 H 6.60 H 5.30 H Ur Total Protein 24 Hr Urine Total Protein 11/24/18 16:05 WBC Lymph % (Auto) Seg Neutrophils % Seg Neutrophils # Creatinine Magnesium Ur Total Protein 24 Hr 799.50 H Urine Total Protein 39 H
--- NOTE | 2018-12-06 11:08 | Progress Note ---
Assessment and Plan . 1. Lauren IUP at 31 6/7 weeks 2. CHTN with Elevated BP's with Superimposed Preeclampsia - 24 Hour Urine at 779 mg and by BP criteria 3. H/O Stroke 4. Reports H/O Coronary Artery Ds 5. MO 6. Brain CT - 1.6 X 1.2 hypodense lesion in Left Caudate/anterior medial globus pallidus - C/W old stroke per neurology 7. AMA Recommendations 1. 24 Hour urine - 779 2. Steroids for FLM completed 3. NICU consult 4. Neurology consult done see consult 5. BPP twice per week while in house 6. EFM q shift 7. Labetalol 400 TID PO and would Methyldopa 500 BID - good control now 8. IV hydralazine for BP's sys > 160 or wesley > 110 or Clonidine 9. Continued in house management would aim for delivery at 34 weeks would deliver sooner for - BP that are not controlled despite meds - neurologic symptoms that are severe and not responsive to meds - if her ALMODOVAR remains severe I would start her induction and mag - RUQ pain that is nonremitting - LFT double or platelets <`100 - renal function decline - pulm edema - seizure - NRFHTS -standard maternal indications The patient is stable today and feeling well, no ALMODOVAR, we will still Aim for 34 weeks deliverry timing with inpatient management Subjective - Subjective Date of service: 12/06/18 Principal diagnosis: IUP @ 31 3/7 weeks; Preeclampsia; Benign brain lesion Patient reports: new complaints (re-occurring headaches), movement normal, other (mild ALMODOVAR but not like the other day), no loss of fluid, no vaginal bleeding, no contractions Objective - Vital Signs Vital Signs: Vital Signs - 12hr 12/05/18 12/06/18 12/06/18 23:39 00:00 00:39 Temperature 98.1 F Pulse Rate 66 69 Respiratory 18 Rate Blood Pressure 166/85 168/81 Blood Pressure [Left] 12/06/18 12/06/18 12/06/18 01:25 01:39 02:39 Temperature Pulse Rate 69 68 62 Respiratory Rate Blood Pressure 168/81 166/91 165/88 Blood Pressure [Left] 12/06/18 12/06/18 12/06/18 03:39 03:56 03:58 Temperature 98.1 F Pulse Rate 67 67 Respiratory 16 Rate Blood Pressure 172/88 172/88 Blood Pressure [Left] 12/06/18 12/06/18 12/06/18 04:01 04:15 04:30 Temperature Pulse Rate 67 77 75 Respiratory Rate Blood Pressure 170/92 154/70 141/68 Blood Pressure [Left] 12/06/18 12/06/18 12/06/18 04:45 05:00 05:15 Temperature Pulse Rate 75 77 71 Respiratory Rate Blood Pressure 137/68 138/70 148/77 Blood Pressure [Left] 12/06/18 12/06/18 12/06/18 05:30 05:45 06:00 Temperature Pulse Rate 72 73 77 Respiratory Rate Blood Pressure 156/81 158/82 142/68 Blood Pressure [Left] 12/06/18 12/06/18 12/06/18 07:01 07:48 08:00 Temperature 97.9 F Pulse Rate 70 71 70 Respiratory 18 Rate Blood Pressure 151/81 156/77 163/85 Blood Pressure 156/77 [Left] 12/06/18 12/06/18 12/06/18 09:01 10:01 10:11 Temperature Pulse Rate 65 75 75 Respiratory Rate Blood Pressure 153/82 155/79 155/79 Blood Pressure [Left] 12/06/18 11:01 Temperature Pulse Rate 69 Respiratory Rate Blood Pressure 150/73 Blood Pressure [Left] - Exam Cardiovascular: Regular rate Lungs: Normal air movement Abdomen: Present: soft. Absent: distention, tenderness, guarding FHR: category 1 FHR comments: appears cat 1 at time of seeing patient Uterine Contraction Pattern: Irregular - Labs Labs: Abnormal Labs 11/23/18 11/23/18 11/23/18 15:05 15:05 22:04 WBC 13.3 H Lymph % (Auto) 10.5 L Seg Neutrophils % 84.9 H Seg Neutrophils # 11.3 H Creatinine 0.6 L Magnesium 4.80 H Ur Total Protein 24 Hr Urine Total Protein 11/24/18 11/24/18 11/24/18 00:33 05:55 10:55 WBC Lymph % (Auto) Seg Neutrophils % Seg Neutrophils # Creatinine Magnesium 5.30 H 6.60 H 5.30 H Ur Total Protein 24 Hr Urine Total Protein 11/24/18 16:05 WBC Lymph % (Auto) Seg Neutrophils % Seg Neutrophils # Creatinine Magnesium Ur Total Protein 24 Hr 799.50 H Urine Total Protein 39 H
[2018-12-07] MEDS: NORMODYNE PO SCH ×4 (01:37→22:00)
[2018-12-07] MEDS: ALDOMET PO SCH ×3 (01:40→22:00)
[2018-12-07] MEDS: PRENATAL VITAMIN PO SCH (10:54)
[2018-12-07] MEDS: FIORICET PO PRN ×2 (11:03→15:11)
--- NOTE | 2018-12-07 11:32 | Progress Note ---
Assessment and Plan - Patient Problems (1) 30 weeks gestation of Onset Date: 11/23/18 Current Visit: Yes Status: Resolved (2) Advanced maternal age (AMA), 40 years or greater Onset Date: ~09/24/18 Current Visit: No Status: Chronic (3) Chronic hypertension affecting Onset Date: ~09/23/18 Current Visit: No Status: Chronic (4) History of CVA (cerebrovascular accident) Onset Date: Unknown Current Visit: No Status: Chronic (5) 31 weeks gestation of Onset Date: 11/30/18 Current Visit: Yes Status: Resolved (6) 32 weeks gestation of Onset Date: 12/07/18 Current Visit: Yes Status: Acute Plan to address problem: A: IUP @ 32 0/7 weeks Chronic hypertension - improved on Labetolol 400mg TID; Aldomet 500mg BID and Clonidine 0.1mg Q4h Preeclampsia - stable AMA History of stroke 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 She received care at [facility] and co-managed by [facility] for Chronic hypertension, AMA and history of stroke. She is on labetolol 400mg TID, Aldomet 500mg BID and Clonidine 0.1mg prn and Low dose aspirin. She had a severe headache - now improved with Fiorcet. CT Scan showed a 1.6 x 1.2cm brain lesion for which Neurology was consulted. MRI consistent with chronic ischemic changes. PIH labs are WNL and 24hour urine showed 799.50mg Protein. BPP 8/8 with Normal Dopplers 12/04/18 and Repeat PIH labs - WNL. Today she is well, but complains of nausea. Patient reports: new complaints (re-occurring headaches), movement normal, other (mild ALMODOVAR but not like the other day), no loss of fluid, no vaginal bleeding, no contractions Objective - Vital Signs Vital Signs: Vital Signs - 12hr 12/06/18 12/06/18 12/06/18 23:30 23:35 23:40 Temperature Pulse Rate 74 74 74 Respiratory Rate Blood Pressure O2 Sat by Pulse 100 100 100 Oximetry 12/06/18 12/06/18 12/06/18 23:45 23:50 23:55 Temperature Pulse Rate 75 66 77 Respiratory Rate Blood Pressure O2 Sat by Pulse 100 100 100 Oximetry 12/07/18 12/07/18 12/07/18 01:37 01:39 01:40 Temperature Pulse Rate 82 82 82 Respiratory Rate Blood Pressure 172/89 172/89 172/89 O2 Sat by Pulse Oximetry 12/07/18 12/07/18 12/07/18 02:01 03:01 04:01 Temperature Pulse Rate 75 66 72 Respiratory Rate Blood Pressure 152/84 227/108 162/103 O2 Sat by Pulse Oximetry 12/07/18 12/07/18 12/07/18 05:01 05:56 06:01 Temperature Pulse Rate 80 80 82 Respiratory Rate Blood Pressure 162/79 162/79 149/84 O2 Sat by Pulse Oximetry 12/07/18 12/07/18 12/07/18 07:01 07:30 08:01 Temperature 98.2 F Pulse Rate 73 73 Respiratory 18 Rate Blood Pressure 149/84 153/77 O2 Sat by Pulse Oximetry 12/07/18 12/07/18 12/07/18 09:00 10:00 11:02 Temperature Pulse Rate 75 71 71 Respiratory Rate Blood Pressure 146/77 142/74 161/84 O2 Sat by Pulse Oximetry - Exam Breasts: deferred Abdomen: Present: normal appearance, soft Uterus: Present: normal FHR: category 1 Uterine Contraction Monitor Mode: External Uterine Contraction Pattern: Absent - Labs Labs: Abnormal Labs 11/23/18 11/23/18 11/23/18 15:05 15:05 22:04 WBC 13.3 H Lymph % (Auto) 10.5 L Seg Neutrophils % 84.9 H Seg Neutrophils # 11.3 H Creatinine 0.6 L Magnesium 4.80 H Ur Total Protein 24 Hr Urine Total Protein 11/24/18 11/24/18 11/24/18 00:33 05:55 10:55 WBC Lymph % (Auto) Seg Neutrophils % Seg Neutrophils # Creatinine Magnesium 5.30 H 6.60 H 5.30 H Ur Total Protein 24 Hr Urine Total Protein 11/24/18 16:05 WBC Lymph % (Auto) Seg Neutrophils % Seg Neutrophils # Creatinine Magnesium Ur Total Protein 24 Hr 799.50 H Urine Total Protein 39 H - Results US- obstetric: report reviewed (BPP 04/28 on 12/04/18; Dopplers - WNL.)
[2018-12-07] MEDS: STADOL IV PRN ×2 (16:15→22:35)
[2018-12-07] MEDS: ZOFRAN IV PRN (16:35)
[2018-12-07] MEDS: APRESOLINE IV PRN (20:13)
[2018-12-07 20:51] LABS: Hematocrit 29.6 % (30.3-42.9); Hemoglobin 9.9 gm/dl (10.1-14.3); Mean Corpuscular HGB Conc 34 % (30-34); Mean Corpuscular Volume 85 fl (79-97); Platelet Count 243 K/mm3 (140-440); Red Blood Count 3.47 M/mm3 (3.65-5.03); Red Cell Distribution Width 15.6 % (13.2-15.2)
[2018-12-07 21:08] LABS: Alanine Aminotransferase 6 units/L (7-56)
[2018-12-08] MEDS: NORMODYNE PO SCH ×3 (06:00→21:23)
[2018-12-08] MEDS: FIORICET PO PRN (08:10)
[2018-12-08] MEDS: PRENATAL VITAMIN PO SCH (09:35)
[2018-12-08] MEDS: ALDOMET PO SCH ×2 (09:35→21:22)
[2018-12-08] MEDS: COLACE PO PRN (10:01)
[2018-12-08] MEDS: CATAPRES PO PRN (10:05)
[2018-12-08] MEDS ORDERED: LACTATED RINGERS 1,000 ML ONE ×2 (10:18→20:20)
--- NOTE | 2018-12-08 11:08 | Progress Note ---
Assessment and Plan - Patient Problems (1) 30 weeks gestation of Onset Date: 11/23/18 Current Visit: Yes Status: Resolved (2) Advanced maternal age (AMA), 40 years or greater Onset Date: ~09/24/18 Current Visit: No Status: Chronic (3) Chronic hypertension affecting Onset Date: ~09/23/18 Current Visit: No Status: Chronic (4) History of CVA (cerebrovascular accident) Onset Date: Unknown Current Visit: No Status: Chronic (5) 31 weeks gestation of Onset Date: 11/30/18 Current Visit: Yes Status: Resolved (6) 32 weeks gestation of Onset Date: 12/07/18 Current Visit: Yes Status: Acute Plan to address problem: A: IUP @ 32 1/7 weeks Chronic hypertension - improved on Labetolol 400mg TID; Aldomet 500mg BID and Clonidine 0.1mg Q4h Preeclampsia - stable AMA History of stroke 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 She received care at [facility] and co-managed by [facility] for Chronic hypertension, AMA and history of stroke. She is on labetolol 400mg TID, Aldomet 500mg BID and Clonidine 0.1mg prn and Low dose aspirin. She had a severe headache - now improved with Fiorcet. CT Scan showed a 1.6 x 1.2cm brain lesion for which Neurology was consulted. MRI consistent with chronic ischemic changes. PIH labs are WNL and 24hour urine showed 799.50mg Protein. BPP 8/8 with Normal Dopplers 12/04/18 and Repeat PIH labs - WNL. Today she is complaining of headache and nausea. Patient reports: new complaints (re-occurring headaches), movement normal, other (mild ALMODOVAR but not like the other day), no loss of fluid, no vaginal bleeding, no contractions Objective - Vital Signs Vital Signs: Vital Signs - 12hr 03/19/19 03/19/19 03/20/19 23:20 23:51 00:20 Temperature Pulse Rate 65 70 70 Respiratory Rate Blood Pressure 140/81 166/85 147/81 Blood Pressure [Left] 12/08/18 12/08/18 12/08/18 00:51 01:20 01:51 Temperature Pulse Rate 72 65 63 Respiratory Rate Blood Pressure 139/77 141/84 170/90 Blood Pressure [Left] 12/08/18 12/08/18 12/08/18 02:21 02:51 03:21 Temperature Pulse Rate 65 73 69 Respiratory Rate Blood Pressure 160/90 179/88 161/81 Blood Pressure [Left] 12/08/18 12/08/18 12/08/18 03:51 04:21 04:51 Temperature Pulse Rate 72 74 76 Respiratory Rate Blood Pressure 161/87 150/80 182/87 Blood Pressure [Left] 12/08/18 12/08/18 12/08/18 06:00 06:59 07:47 Temperature 96.8 F L Pulse Rate 74 79 79 Respiratory 18 Rate Blood Pressure 168/86 147/85 Blood Pressure 147/85 [Left] 12/08/18 12/08/18 12/08/18 08:00 08:59 09:35 Temperature Pulse Rate 68 62 62 Respiratory Rate Blood Pressure 178/92 189/92 189/92 Blood Pressure [Left] 12/08/18 12/08/18 12/08/18 10:01 10:05 10:33 Temperature Pulse Rate 70 70 79 Respiratory Rate Blood Pressure 208/115 208/115 165/86 Blood Pressure [Left] - Exam Cardiovascular: Regular rate Lungs: Clear to auscultation Abdomen: Present: normal appearance Uterus: Present: normal FHR: category 1 Uterine Contraction Monitor Mode: External Uterine Contraction Pattern: Irregular Uterine Contraction Intensity: Mild - Labs Labs: Abnormal Labs 11/23/18 11/23/18 11/23/18 15:05 15:05 22:04 WBC 13.3 H RBC Hgb Hct RDW Lymph % (Auto) 10.5 L Seg Neutrophils % 84.9 H Seg Neutrophils # 11.3 H Creatinine 0.6 L Magnesium 4.80 H ALT Ur Total Protein 24 Hr Urine Total Protein 11/24/18 11/24/18 11/24/18 00:33 05:55 10:55 WBC RBC Hgb Hct RDW Lymph % (Auto) Seg Neutrophils % Seg Neutrophils # Creatinine Magnesium 5.30 H 6.60 H 5.30 H ALT Ur Total Protein 24 Hr Urine Total Protein 11/24/18 12/07/18 12/07/18 16:05 20:32 20:32 WBC RBC 3.47 L Hgb 9.9 L Hct 29.6 L RDW 15.6 H Lymph % (Auto) Seg Neutrophils % Seg Neutrophils # Creatinine Magnesium ALT 6 L Ur Total Protein 24 Hr 799.50 H Urine Total Protein 39 H Laboratory Results - last 24 hr 12/07/18 12/07/18 20:32 20:32 WBC 7.5 RBC 3.47 L Hgb 9.9 L Hct 29.6 L MCV 85 MCH 29 MCHC 34 RDW 15.6 H Plt Count 243 AST 12 ALT 6 L
[2018-12-08] MEDS: STADOL IV PRN ×2 (11:17→22:50)
[2018-12-08] MEDS: APRESOLINE IV PRN (18:34)
[2018-12-08] MEDS ORDERED: LACTATED RINGERS 1,000 ML IV SCH (21:00)
[2018-12-08] MEDS: ZOFRAN IV PRN (21:32)
[2018-12-09] MEDS: NORMODYNE PO SCH ×2 (05:37→21:08)
[2018-12-09 09:18] LABS: Basophils % (Auto) 0.3 % (0.0-1.8); Eosinophils % (Auto) 0.5 % (0.0-4.3); Hematocrit 31.1 % (30.3-42.9); Hemoglobin 10.2 gm/dl (10.1-14.3); Lymphocytes # (Auto) 1.6 K/mm3 (1.2-5.4); Lymphocytes % (Auto) 19.1 % (13.4-35.0); Mean Corpuscular HGB Conc 33 % (30-34); Mean Corpuscular Volume 86 fl (79-97); Monocytes # (Auto) 0.4 K/mm3 (0.0-0.8); Monocytes % (Auto) 4.4 % (0.0-7.3); Platelet Count 242 K/mm3 (140-440); Red Blood Count 3.61 M/mm3 (3.65-5.03); Red Cell Distribution Width 15.7 % (13.2-15.2)
--- NOTE | 2018-12-09 10:34 | Progress Note ---
Assessment and Plan - Patient Problems (1) 30 weeks gestation of Onset Date: 11/23/18 Current Visit: Yes Status: Resolved (2) Advanced maternal age (AMA), 40 years or greater Onset Date: ~09/24/18 Current Visit: No Status: Chronic (3) Chronic hypertension affecting Onset Date: ~09/23/18 Current Visit: No Status: Chronic (4) History of CVA (cerebrovascular accident) Onset Date: Unknown Current Visit: No Status: Chronic (5) 31 weeks gestation of Onset Date: 11/30/18 Current Visit: Yes Status: Resolved (6) 32 weeks gestation of Onset Date: 12/07/18 Current Visit: Yes Status: Acute Plan to address problem: A: IUP @ 32 1/7 weeks Chronic hypertension - still labile on Labetolol 400mg TID; Aldomet 500mg BID and Clonidine 0.1mg Q4h Preeclampsia - unstable AMA History of stroke 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 She received care at [facility] and co-managed by [facility] for Chronic hypertension, AMA and history of stroke. She is on labetolol 400mg TID, Aldomet 500mg BID and Clonidine 0.1mg prn and Low dose aspirin. She had a severe headache - now improved with Fiorcet. CT Scan showed a 1.6 x 1.2cm brain lesion for which Neurology was consulted. MRI consistent with chronic ischemic changes. PIH labs are WNL and 24hour urine showed 799.50mg Protein on 11/24/18 and increased to 1080.00mg on 12/07/18. BPP 8/8 with Normal Dopplers 12/04/18 and Repeat PIH labs - WNL. Today she is complaining of headache and chest pains, and requiring several doses of Hydralazine to control her BP's. Patient reports: new complaints (re-occurring headaches and now chest pains), movement normal, other (mild ALMODOVAR but not like the other day), no loss of fluid, no vaginal bleeding, no contractions Objective - Vital Signs Vital Signs: Vital Signs - 12hr 12/08/18 12/08/18 12/08/18 22:50 23:01 23:20 Pulse Rate 70 Respiratory 16 18 18 Rate Blood Pressure 135/80 Blood Pressure 135/80 [Left] O2 Sat by Pulse Oximetry 12/08/18 12/09/18 12/09/18 23:32 00:01 00:31 Pulse Rate 67 67 73 Respiratory Rate Blood Pressure 139/75 136/70 139/76 Blood Pressure [Left] O2 Sat by Pulse Oximetry 12/09/18 12/09/18 12/09/18 01:01 02:01 02:31 Pulse Rate 73 65 70 Respiratory Rate Blood Pressure 121/70 137/73 117/65 Blood Pressure [Left] O2 Sat by Pulse Oximetry 12/09/18 12/09/18 12/09/18 03:01 03:31 04:03 Pulse Rate 65 67 62 Respiratory Rate Blood Pressure 136/71 142/72 153/80 Blood Pressure [Left] O2 Sat by Pulse Oximetry 12/09/18 12/09/18 12/09/18 04:30 04:31 05:02 Pulse Rate 62 60 66 Respiratory 18 Rate Blood Pressure 153/80 178/91 Blood Pressure 153/80 [Left] O2 Sat by Pulse Oximetry 12/09/18 12/09/18 12/09/18 05:31 05:37 06:02 Pulse Rate 61 61 64 Respiratory Rate Blood Pressure 183/89 183/89 157/80 Blood Pressure [Left] O2 Sat by Pulse Oximetry 12/09/18 12/09/18 12/09/18 06:24 06:29 06:32 Pulse Rate 74 65 62 Respiratory Rate Blood Pressure 184/90 Blood Pressure [Left] O2 Sat by Pulse 98 98 Oximetry 12/09/18 12/09/18 12/09/18 06:34 06:39 06:44 Pulse Rate 63 64 65 Respiratory Rate Blood Pressure Blood Pressure [Left] O2 Sat by Pulse 99 98 98 Oximetry 12/09/18 12/09/18 12/09/18 06:49 06:54 06:59 Pulse Rate 68 64 65 Respiratory Rate Blood Pressure Blood Pressure [Left] O2 Sat by Pulse 99 99 99 Oximetry 12/09/18 12/09/18 12/09/18 07:02 07:04 07:09 Pulse Rate 65 66 69 Respiratory Rate Blood Pressure 184/96 Blood Pressure [Left] O2 Sat by Pulse 98 98 Oximetry 12/09/18 12/09/18 12/09/18 07:14 07:19 07:24 Pulse Rate 66 70 68 Respiratory Rate Blood Pressure Blood Pressure [Left] O2 Sat by Pulse 98 99 97 Oximetry 12/09/18 12/09/18 12/09/18 07:29 07:31 07:34 Pulse Rate 65 66 67 Respiratory Rate Blood Pressure 144/90 Blood Pressure [Left] O2 Sat by Pulse 99 97 Oximetry 12/09/18 12/09/18 12/09/18 07:39 07:44 07:49 Pulse Rate 63 64 62 Respiratory Rate Blood Pressure Blood Pressure [Left] O2 Sat by Pulse 98 98 99 Oximetry 12/09/18 12/09/18 12/09/18 07:54 07:58 08:01 Pulse Rate 65 66 65 Respiratory Rate Blood Pressure 180/89 Blood Pressure [Left] O2 Sat by Pulse 98 98 Oximetry 12/09/18 12/09/18 12/09/18 08:04 08:09 08:14 Pulse Rate 62 67 64 Respiratory Rate Blood Pressure Blood Pressure [Left] O2 Sat by Pulse 99 98 97 Oximetry 12/09/18 12/09/18 12/09/18 08:19 08:24 08:29 Pulse Rate 70 72 80 Respiratory Rate Blood Pressure Blood Pressure [Left] O2 Sat by Pulse 98 99 98 Oximetry 12/09/18 12/09/18 12/09/18 08:31 08:34 08:39 Pulse Rate 77 80 78 Respiratory Rate Blood Pressure 183/92 Blood Pressure [Left] O2 Sat by Pulse 98 97 Oximetry 12/09/18 12/09/18 12/09/18 08:44 09:58 09:59 Pulse Rate 74 77 78 Respiratory Rate Blood Pressure 137/73 Blood Pressure [Left] O2 Sat by Pulse 98 94 94 Oximetry 12/09/18 12/09/18 12/09/18 10:02 10:04 10:09 Pulse Rate 71 75 69 Respiratory Rate Blood Pressure 167/85 Blood Pressure [Left] O2 Sat by Pulse 97 97 Oximetry 12/09/18 12/09/18 12/09/18 10:14 10:19 10:24 Pulse Rate 77 73 71 Respiratory Rate Blood Pressure Blood Pressure [Left] O2 Sat by Pulse 97 98 98 Oximetry 12/09/18 12/09/18 10:29 10:32 Pulse Rate 64 62 Respiratory Rate Blood Pressure 168/82 Blood Pressure [Left] O2 Sat by Pulse 97 Oximetry - Exam Breasts: deferred Cardiovascular: Regular rate Lungs: Clear to auscultation Abdomen: Present: normal appearance Uterus: Present: normal FHR: category 1 Uterine Contraction Monitor Mode: External Uterine Contraction Pattern: Irregular - Labs Labs: Abnormal Labs 11/23/18 11/23/18 11/23/18 15:05 15:05 22:04 WBC 13.3 H RBC Hgb Hct RDW Lymph % (Auto) 10.5 L Seg Neutrophils % 84.9 H Seg Neutrophils # 11.3 H Creatinine 0.6 L Magnesium 4.80 H ALT Ur Total Protein 24 Hr Urine Total Protein 11/24/18 11/24/18 11/24/18 00:33 05:55 10:55 WBC RBC Hgb Hct RDW Lymph % (Auto) Seg Neutrophils % Seg Neutrophils # Creatinine Magnesium 5.30 H 6.60 H 5.30 H ALT Ur Total Protein 24 Hr Urine Total Protein 11/24/18 12/07/18 12/07/18 16:05 11:34 20:32 WBC RBC Hgb Hct RDW Lymph % (Auto) Seg Neutrophils % Seg Neutrophils # Creatinine Magnesium ALT 6 L Ur Total Protein 24 Hr 799.50 H 1080.00 H Urine Total Protein 39 H 48 H 12/07/18 12/09/18 20:32 08:51 WBC RBC 3.47 L 3.61 L Hgb 9.9 L Hct 29.6 L RDW 15.6 H 15.7 H Lymph % (Auto) Seg Neutrophils % 75.7 H Seg Neutrophils # Creatinine Magnesium ALT Ur Total Protein 24 Hr Urine Total Protein Laboratory Results - last 24 hr 12/07/18 12/09/18 12/09/18 11:34 08:51 08:51 WBC 8.2 RBC 3.61 L Hgb 10.2 Hct 31.1 MCV 86 MCH 28 MCHC 33 RDW 15.7 H Plt Count 242 Lymph % (Auto) 19.1 Edgar % (Auto) 4.4 Eos % (Auto) 0.5 Baso % (Auto) 0.3 Lymph # 1.6 Edgar # 0.4 Eos # 0.0 Baso # 0.0 Seg Neutrophils % 75.7 H Seg Neutrophils # 6.2 Urine Total Volume 2250 Ur Total Protein 24 Hr 1080.00 H Urine Total Protein 48 H Blood Type O POSITIVE Antibody Screen Negative
[2018-12-09] MEDS: ALDOMET PO SCH ×2 (10:48→21:07)
[2018-12-09] MEDS: STADOL IV PRN (10:52)
[2018-12-09] MEDS: PRENATAL VITAMIN PO SCH (14:03)
[2018-12-09] MEDS ORDERED: BICITRA PO SCH (14:04)
[2018-12-09] MEDS ORDERED: PEPCID IV SCH (14:04)
[2018-12-09] MEDS ORDERED: REGLAN IV SCH (14:04)
[2018-12-09] MEDS ORDERED: LACTATED RINGERS 1,000 ML IV SCH (15:00)
[2018-12-09] MEDS ORDERED: PITOCin/NS 20 UNIT/1000ML DRIP 20 UNITS/1,000 ML BAG IV SCH ×2 (15:00→18:00)
[2018-12-09] MEDS ORDERED: ANCEF/STERILE WATER 2 GM/20 ML 2 GM/20 ML SYRINGE IV NR (15:00)
[2018-12-09] MEDS ORDERED: SUBLIMAZE ONE (16:17)
[2018-12-09] MEDS ORDERED: NACL 0.9% IR ONE (17:00)
[2018-12-09] MEDS ORDERED: WATER FOR IRRIG STERILE IR ONE (17:00)
[2018-12-09] MEDS ORDERED: ZOFRAN ONE (17:03)
[2018-12-09] MEDS ORDERED: LACTATED RINGERS 1,000 ML ONE (17:49)
[2018-12-09] MEDS ORDERED: TUCKS PAD TP PRN (17:50)
[2018-12-09] MEDS ORDERED: NORCO 5/325 PO PRN (17:50)
[2018-12-09] MEDS ORDERED: PHENERGAN PR PRN ×2 (17:50→19:00)
[2018-12-09] MEDS ORDERED: LANSINOH TP PRN (17:50)
[2018-12-09] MEDS ORDERED: MYLICON PO PRN (17:50)
[2018-12-09] MEDS ORDERED: MAGNESIUM SULFATE 4GM/100ML 4 GM/100 ML BAG IV ONE (17:50)
[2018-12-09] MEDS ORDERED: SENOKOT PO PRN (17:50)
[2018-12-09] MEDS ORDERED: NARCAN 0.4 MG/1 ML IV PRN ×2 (17:50→19:00)
[2018-12-09] MEDS ORDERED: MAGNESIUM SULFATE 40GM/1000ML 40 GM/1,000 ML BAG IV SCH (18:00)
[2018-12-09] MEDS ORDERED: D5LR 1,000 ML IV SCH (18:00)
[2018-12-09] MEDS ORDERED: SODIUM CHLORIDE FLUSH SYRINGE 10 ML IV NR ×2 (18:00→19:00)
--- NOTE | 2018-12-09 18:17 | Operative Report ---
Operative Report Operative Report: Date of procedure: 12/09/2018 Pre-operative diagnosis: 1. Intrauterine at 32 2/7th weeks 2. Chr onic hypertension with superimposed preeclampsia 3. Advanced maternal age 4. History of CVA 5. Desires permanent sterilization Post-operative diagnosis: Same with breech presentation Procedure name(s): Primary low transverse section with bilateral tubal ligation Surgeon: Sundar Fernandes MD Beef Specialist: None Anesthesia: Spinal anesthesia by Dr. Polanco EBL: 650 mL's Findings: A 1492 g female infant Apgars 5 at 1 minute and 7 at 5 minutes. Double footling breech presentation. Clear amniotic fluid. Normal uterus. Normal tubes and ovaries bilaterally. Procedure: After the patient was prepped and draped in usual sterile fashion, and after satisfactory level of epidural anesthesia was obtained, the skin knife was used to make a transverse skin incision. The incision was excised down to layer of the fascia, which was nicked in the midline and extended laterally using the Bovie cautery. The rectus muscles were dissected off the rectus fascia both superiorly and inferiorly. The rectus bellies in the midline, and the peritoneum was entered under direct visualization. The peritoneal incision was extended superiorly and inferiorly. A bladder flap was created and the bladder blade was then placed. The uterus was scored in a curvilinear linear fashion, entered in the midline revealing clear amniotic fluid. The 's double footling breech was delivered onto the surgical field, and the the rest of the 's body was delivered, cord was doubly clamped and cut and the was handed to the waiting respiratory team. Cord blood was then obtained. The placenta was manually removed from the uterus, and the uterus removed from its normal anatomical position. After gentle uterine lavage, the incision was inspected and found to be without extensions. It was then closed in 2 layers using 0 Vicryl suture in a running interlocking fashion, the second layer imbricating the first. After good hemostasis was achieved, copious amounts or irrigation was performed, and the gutters were suctioned free of blood and blood clots. Attention was then turned to the tubal ligation. First the right fallopian tube was grasped with a Waggoner and the Filshie clip was applied to the proximal portion of the tube. The same procedure was performed on the left fallopian tube. The left fallopian tube was grasped with a Kareen and the Filshie clip was applied to the proximal portion of the tube. Tisseel sealant was sprayed across the uterine incision. The uterus was then returned to its normal anatomical position, and after excellent hemostasis a ssured, the peritoneum was re-approximated using 3-0 Vicryl suture in a running interlocking fashion, and then the rectus muscles were re-approximated using 3-0 Vicryl suture in a [id number] configuration. The fascia was then re- approximated using 0 Vicryl suture in running interlocking fashion. The subcutaneous layer was made hemostatic using Bovie cautery, the Tisseel sealant was sprayed across the fascial incision and the skin edges re-approximated using 4-0 Vicryl suture in a sub-cuticular fashion. Patient tolerated the procedure well was transported to recovery in stable condition.
--- NOTE | 2018-12-09 18:59 | Anesthesia Consultation ---
Anesthesia Consult and Med Hx Date of service: 12/09/18 - Airway Anesthetic Teeth Evaluation: Good ROM Head & Neck: Adequate Mental/Hyoid Distance: Adequate Mallampati Class: Class I Intubation Access Assessment: Good - Cardiac Exam Cardiac Exam: RRR - Pre-Operative Health Status ASA Pre-Surgery Classification: ASA3 Proposed Anesthetic Plan: Spinal - Pulmonary Hx Smoking: No Hx Asthma: No Hx Respiratory Symptoms: No SOB: No COPD: No Home Oxygen Therapy: No Hx Pneumonia: No Hx Sleep Apnea: No - Cardiovascular System Hx Hypertension: Yes Hx Coronary Artery Disease: No Hx Heart Attack/AMI: No Hx Angina: No Hx Percutaneous Transluminal Coronary Angioplasty (PTCA): No Hx Cardia Arrhythmia: No Hx Pacemaker: No Hx Internal Defibrillator: No Hx Valvular Heart Disease: No Hx Heart Murmur: No Hx Peripheral Vascular Disease: No - Central Nervous System Hx Neuromuscular Disorder: No Hx Seizures: No CVA: No Hx Back Pain: No Hx Psychiatric Problems: No - Gastrointestinal Hx Ulcer: No Hx Gastroesophageal Reflux Disease: No - Endocrine Hx Renal Disease: No Hx End Stage Renal Disease: No Hx Cirrhosis: No Hx Liver Disease: No Hx Insulin Dependent Diabetes: No Hx Non-Insulin Dependent Diabetes: No Hx Thyroid Disease: No Hx Hypothyroidism: No Hx Hyperthyroidism: No - Hematic Hx Anemia: No Hx Sickle Cell Disease: No - Other Systems Hx Alcohol Use: No (red wine occasional) Hx Substance Use: No Hx Cancer: No Hx Obesity: Yes
--- NOTE | 2018-12-09 18:59 | Anesthesia Day of Surgery ---
Anesthesia Day of Surgery - Day of Surgery Patient Examined: Yes Patient H&P Reviewed: Yes Patient is NPO: Yes Beta Blockers: No Cardiac Clearance: No Pulmonary Clearance: No Gage's Test: N/A
[2018-12-09] MEDS ORDERED: ZOFRAN IV PRN (19:00)
[2018-12-09] MEDS ORDERED: PHENERGAN PO PRN (19:00)
--- NOTE | 2018-12-09 19:00 | Post Anesthesia Evaluation ---
- Post Anesthesia Evaluation Patient Participated: Yes Airway Patent: Yes Stable Respiratory Function: Yes Nausea/Vomiting: No Temp > 96.8F: Yes Pain Manageable: Yes Adequeate Hydration: Yes Anesthesia Complications: No Block Receding Appropriately: Yes Patient on Ventilator: No
[2018-12-09] MEDS: TORADOL IV PRN (19:07)
[2018-12-09] MEDS ORDERED: ANCEF/NS 1 GM/50 ML 1 GM/50 ML BAG IV SCH (22:00)
[2018-12-10] MEDS: PERCOCET 5/325 PO PRN ×3 (00:34→23:06)
[2018-12-10] MEDS ORDERED: BOOSTRIX IM ONE (06:00)
[2018-12-10 06:01] LABS: Hematocrit 29.9 % (30.3-42.9); Hemoglobin 9.9 gm/dl (10.1-14.3)
[2018-12-10] MEDS: NORMODYNE PO SCH ×3 (06:22→22:14)
[2018-12-10] MEDS: FEOSOL PO SCH (10:00)
[2018-12-10] MEDS: PRENATAL VITAMIN PO SCH (10:00)
[2018-12-10] MEDS: ANCEF/NS 1 GM/50 ML 1 GM/50 ML BAG IV SCH ×2 (10:00→17:48)
[2018-12-10] MEDS: TORADOL IV PRN (10:00)
[2018-12-10] MEDS: ALDOMET PO SCH ×2 (10:00→22:12)
--- NOTE | 2018-12-10 10:06 | Progress Note ---
Assessment and Plan - Patient Problems (1) 30 weeks gestation of Onset Date: 11/23/18 Current Visit: Yes Status: Resolved (2) Advanced maternal age (AMA), 40 years or greater Onset Date: ~09/24/18 Current Visit: No Status: Chronic (3) Chronic hypertension affecting Onset Date: ~09/23/18 Current Visit: No Status: Resolved (4) History of CVA (cerebrovascular accident) Onset Date: Unknown Current Visit: No Status: Chronic (5) 31 weeks gestation of Onset Date: 11/30/18 Current Visit: Yes Status: Resolved (6) 32 weeks gestation of Onset Date: 12/07/18 Current Visit: Yes Status: Resolved (7) Status post Onset Date: 12/10/18 Current Visit: Yes Status: Resolved Plan to address problem: A: S/P C Section with BTL - POD #1 Doing well Chronic hypertension with superimposed preeclampsia - improving on IV Magnesium sulfate P: Continue RPOC Will D/C IV Magnesium sulfate and recheck magnesium level Will transfer to floor when IV Magnesium sulfate d/c'd Subjective - Subjective Date of service: 12/10/18 Principal diagnosis: s/p C Section with BTL - POD #1 Interval history: Pt is feeling well without complaints. She is tolerating a liquid diet without nausea or vomiting. Still on IV Magnesium sulfate with improving BP's. Patient reports: appetite normal, voiding normally, pain well controlled, no dizzy ambulation, no flatus, no ambulating normally, no nauseated : doing well, in NICU Objective - Vital Signs Latest vital signs: Vital Signs Temp Pulse Resp BP BP BP Pulse Ox 12/10/18 10:00 71 97 12/10/18 09:56 74 135/62 12/10/18 09:55 75 99 12/10/18 09:50 73 98 12/10/18 09:45 74 97 12/10/18 09:40 71 97 12/10/18 09:31 70 185/84 12/10/18 09:23 68 97 12/10/18 09:18 70 94 12/10/18 09:10 69 87 12/10/18 09:06 70 97 12/10/18 09:02 72 86 12/10/18 09:01 55 L 96 12/10/18 08:56 65 96 12/10/18 08:51 70 94 12/10/18 08:46 65 96 12/10/18 08:41 66 96 12/10/18 08:36 65 96 12/10/18 08:31 67 96 12/10/18 08:30 66 137/72 12/10/18 08:26 67 98 12/10/18 08:21 70 94 12/10/18 08:16 67 94 12/10/18 08:11 65 94 12/10/18 08:06 67 95 12/10/18 08:01 64 95 12/10/18 08:00 98 F 14 12/10/18 07:56 65 95 12/10/18 07:51 68 95 12/10/18 07:46 68 94 12/10/18 07:44 75 94 12/10/18 07:41 73 96 12/10/18 07:38 70 94 12/10/18 07:36 67 95 12/10/18 07:33 64 93 12/10/18 07:31 70 93 12/10/18 07:30 68 100/57 12/10/18 07:28 67 91 12/10/18 07:26 68 95 12/10/18 07:22 65 93 12/10/18 07:21 68 97 12/10/18 07:16 69 98 12/10/18 07:11 64 97 12/10/18 07:06 65 96 12/10/18 07:01 64 96 12/10/18 06:56 65 97 12/10/18 06:51 63 98 12/10/18 06:46 63 97 12/10/18 06:41 63 97 12/10/18 06:36 62 98 12/10/18 06:31 63 98 12/10/18 06:30 61 93/51 12/10/18 06:26 64 97 12/10/18 06:22 65 91/53 12/10/18 06:21 63 97 12/10/18 06:16 61 98 12/10/18 05:30 62 16 91/53 12/10/19 04:30 61 16 90/52 12/10/19 03:58 67 16 92/54 0322/19 03:30 62 16 99/54 12/10/18 02:30 65 18 109/55 12/10/18 01:30 67 18 102/58 03 00:34 18 12/10/18 00:30 98.1 F 72 18 116/62 12/10/18 00:00 66 18 129/69 12/09/18 23:00 69 18 115/61 12/09/18 22:00 67 18 132/65 12/09/18 21:08 73 172/84 12/09/18 21:07 66 174/84 12/09/18 21:06 18 12/09/18 21:00 61 20 183/89 12/09/18 19:41 65 160/86 12/09/18 19:37 18 12/09/18 19:30 98.5 F 62 20 181/88 12/09/18 19:07 18 12/09/18 18:59 98.1 F 70 17 118/60 99 12/09/18 18:45 64 12 144/76 99 12/09/18 18:29 64 12 144/76 99 12/09/18 18:15 67 16 148/75 97 12/09/18 18:07 97.6 F 61 14 142/76 97 12/09/18 18:02 97.6 F 57 L 12 158/74 97 12/09/18 15:55 75 173/80 12/09/18 15:43 72 200/92 12/09/18 14:25 67 173/84 12/09/18 13:58 66 182/88 12/09/18 13:26 62 198/92 12/09/18 13:09 65 98 12/09/18 13:04 71 98 12/09/18 12:59 65 99 12/09/18 12:55 64 179/89 12/09/18 12:54 64 99 12/09/18 12:49 66 98 12/09/18 12:44 66 97 12/09/18 12:39 64 97 12/09/18 12:34 62 97 12/09/18 12:29 67 99 12/09/18 12:27 63 195/93 12/09/18 12:24 66 98 12/09/18 12:19 69 99 12/09/18 12:14 68 93 12/09/18 12:09 58 L 98 12/09/18 12:04 60 96 12/09/18 11:59 60 97 12/09/18 11:55 59 L 180/84 03/21/19 11:54 61 96 12/09/18 11:49 60 96 12/09/18 11:44 61 96 12/09/18 11:39 63 96 12/09/18 11:34 59 L 96 12/09/18 11:29 61 95 12/09/18 11:25 59 L 177/83 94 12/09/18 11:24 62 96 12/09/18 11:19 62 96 12/09/18 11:14 61 94 12/09/18 11:10 65 94 12/09/18 11:09 67 96 12/09/18 11:05 63 94 12/09/18 11:04 64 97 12/09/18 10:59 70 96 12/09/18 10:54 69 98 12/09/18 10:52 14 12/09/18 10:49 67 98 12/09/18 10:44 68 97 12/09/18 10:39 68 97 12/09/18 10:34 70 98 12/09/18 10:32 62 168/82 12/09/18 10:29 64 97 12/09/18 10:24 71 98 12/09/18 10:19 73 98 12/09/18 10:14 77 97 12/09/18 10:09 69 97 Intake and Output 12/09/18 12/10/18 12/10/18 22:59 06:59 14:59 Intake Total 1075 656.667 Output Total 1000 550 150 Balance 75 -550 506.667 Intake: IV 1075 656.667 MAGNESIUM SULFATE 40GM/ 656.667 1000ML 40 gm In 1,000 ml @ 2 GM/HR 50 mls/hr IV DIRECT MARIA D Rx#:[id number] Output: Urine 1000 550 150 Indwelling Catheter 350 450 150 Uretheral (Giles) 300 Void 100 Other: Total, Output Amount 200 100 150 Estimated Blood Loss 600 - Exam Cardiovascular: Present: Regular rate Lungs: Present: Clear to auscultation Abdomen: Present: normal appearance, soft Uterus: Present: normal, firm, fundal height below umbilicus Extremities: Present: normal Incision: Present: normal, dry, intact, dressed - Labs Labs: Abnormal lab results 12/10/18 12/10/18 12/10/18 Range/Units 00:34 05:47 05:47 Hgb 9.9 L (10.1-14.3) gm/dl Hct 29.9 L (30.3-42.9) % Magnesium 6.00 H 7.30 H (1.7-2.3) mg/dL Laboratory Results - last 24 hr 12/10/18 12/10/18 12/10/18 00:34 05:47 05:47 Hgb 9.9 L Hct 29.9 L Magnesium 6.00 H 7.30 H
[2018-12-10] MEDS: COLACE PO PRN (12:00)
[2018-12-10] MEDS: IBUPROFEN PO PRN (15:55)
[2018-12-10] MEDS ORDERED: M-M-R II VACCINE SUB-Q ONE (17:55)
[2018-12-10] MEDS ORDERED: ANCEF/NS 1 GM/50 ML 1 GM/50 ML BAG IV SCH (18:00)
[2018-12-11] MEDS: PERCOCET 5/325 PO PRN ×4 (04:27→21:39)
[2018-12-11] MEDS: NORMODYNE PO SCH ×3 (06:53→21:40)
--- NOTE | 2018-12-11 09:13 | Progress Note ---
Assessment and Plan - Patient Problems (1) 30 weeks gestation of Onset Date: 11/23/18 Current Visit: Yes Status: Resolved (2) Advanced maternal age (AMA), 40 years or greater Onset Date: ~09/24/18 Current Visit: No Status: Chronic (3) Chronic hypertension affecting Onset Date: ~09/23/18 Current Visit: No Status: Resolved (4) History of CVA (cerebrovascular accident) Onset Date: Unknown Current Visit: No Status: Chronic (5) 31 weeks gestation of Onset Date: 11/30/18 Current Visit: Yes Status: Resolved (6) 32 weeks gestation of Onset Date: 12/07/18 Current Visit: Yes Status: Resolved (7) Status post Onset Date: 12/10/18 Current Visit: Yes Status: Resolved Plan to address problem: A: S/P C Section with BTL - POD #2 Doing well Chronic hypertension with superimposed preeclampsia - improving on Labetolol 400mg TID P: May go home tomorrow Subjective - Subjective Date of service: 12/11/18 Principal diagnosis: s/p C Section with BTL - POD #2 Interval history: Pt is feeling well without complaints. She is tolerating a reg diet without nausea or vomiting, ambulating and voiding without difficulty. She denies headaches or blurred vision. Patient reports: appetite normal, voiding normally, pain well controlled, flatus, ambulating normally, no dizzy ambulation, no nauseated : doing well, in NICU Objective - Vital Signs Latest vital signs: Vital Signs Temp Pulse Resp BP BP BP Pulse Ox 12/11/18 06:53 80 128/71 12/11/18 04:27 18 12/11/18 04:03 98.2 F 89 18 125/64 97 12/11/18 00:12 98.9 F 89 16 97 12/10/18 23:07 147/77 12/10/18 23:06 26 H 12/10/18 22:14 84 173/84 12/10/18 22:13 83 173/84 94 12/10/18 22:12 84 173/84 12/10/18 17:48 97.7 F 70 18 155/81 97 12/10/18 14:40 98.3 F 73 18 166/91 99 12/10/18 14:12 67 100 12/10/18 14:07 73 98 12/10/18 14:02 67 96 12/10/18 13:57 65 97 12/10/18 13:52 69 98 12/10/18 13:47 66 97 12/10/18 13:42 69 98 12/10/18 13:37 67 99 12/10/18 13:32 66 99 12/10/18 13:30 69 144/76 12/10/18 13:27 74 98 12/10/18 13:22 70 99 12/10/18 13:17 75 98 12/10/18 13:12 75 98 12/10/18 13:07 70 97 12/10/18 13:02 79 97 12/10/18 13:01 74 153/81 12/10/18 12:56 77 97 12/10/18 12:51 83 95 12/10/18 12:46 76 97 12/10/18 12:41 80 97 12/10/18 12:36 74 97 12/10/18 12:31 73 98 12/10/18 12:30 73 179/86 12/10/18 12:26 80 97 12/10/18 12:10 80 97 12/10/18 12:05 75 98 12/10/18 12:00 98.1 F 72 18 97 12/10/18 11:55 76 98 12/10/18 11:50 68 97 12/10/18 11:45 68 97 12/10/18 11:40 69 97 12/10/18 11:37 69 145/80 12/10/18 11:35 74 97 12/10/18 11:30 71 175/87 97 12/10/18 11:25 88 99 12/10/18 11:20 64 99 12/10/18 11:15 70 96 12/10/18 11:10 67 96 12/10/18 11:05 70 97 12/10/18 11:00 68 96 12/10/18 10:55 71 96 12/10/18 10:50 69 97 12/10/18 10:45 72 95 12/10/18 10:40 75 96 12/10/18 10:35 74 96 12/10/18 10:31 78 131/75 12/10/18 10:30 81 97 12/10/18 10:25 73 98 12/10/18 10:20 73 97 12/10/18 10:15 76 98 12/10/18 10:10 77 99 12/10/18 10:05 77 97 12/10/18 10:04 79 79 L 12/10/18 10:00 71 97 12/10/18 09:56 74 135/62 12/10/18 09:55 75 99 12/10/18 09:50 73 98 12/10/18 09:45 74 97 12/10/18 09:40 71 97 12/10/18 09:31 70 185/84 12/10/18 09:23 68 97 12/10/18 09:18 70 94 12/10/18 09:10 69 87 Intake and Output 12/10/18 12/11/18 12/11/18 22:59 06:59 14:59 Intake Total 360 600 Output Total 600 550 Balance -240 50 Intake: Oral 360 600 Output: Urine 600 550 Void 600 550 Other: Total, Intake Amount 360 240 Total, Output Amount 600 250 # Voids Void 1 1 - Exam Breasts: Present: deferred Abdomen: Present: normal appearance, soft Uterus: Present: normal, firm, fundal height below umbilicus Extremities: Present: normal Incision: Present: normal, dry, intact, dressed - Labs Labs: Abnormal lab results 12/10/18 Range/Units 13:03 Magnesium 4.70 H (1.7-2.3) mg/dL
[2018-12-11] MEDS: IBUPROFEN PO PRN ×2 (09:21→21:39)
[2018-12-11] MEDS: FEOSOL PO SCH (10:15)
[2018-12-11] MEDS: PRENATAL VITAMIN PO SCH (10:16)
[2018-12-12] MEDS: IBUPROFEN PO PRN ×2 (03:47→10:34)
[2018-12-12] MEDS: PERCOCET 5/325 PO PRN ×2 (03:47→10:33)
[2018-12-12] MEDS: NORMODYNE PO SCH ×2 (05:41→14:20)
--- NOTE | 2018-12-12 10:28 | Discharge Summary ---
Providers - Providers Date of Admission: 11/23/18 17:00 Date of discharge: 12/12/18 Attending physician: IWONA DALTON 11/23/18 17:05 Consult to Physician [CONS] Routine Comment: Consulting Provider: LETTY HOANG Physician Instructions: Reason For Exam: IUP @ 30 weeks; Hypertension 11/24/18 03:07 Consult to Physician [CONS] Urgent Comment: Consulting Provider: DAWNA ELDER Physician Instructions: Reason For Exam: IUP @ 30 weeks; Headache; Abnormal Head CT Primary care physician: IWONA DALTON Hospitalization Reason for admission: IUP - , other (IUP @ 30 weeks; Chronic hypertension with sulperimposed preeclampsia; H/O Stroke) Delivery: Procedure: section, bilateral tubal ligation, primary low transverse Episiotomy: none Laceration: none Incision: normal, dry, intact Other procedures: none complications: none Discharge diagnosis: delivery (Chronic hypertension with superimposed preeclampsia; h/o stroke; ischemic brain lesion) baby: female Hospital course: Pt is a 43yo BF EDC 5/; EGA 30 0/7 weeks who presented from [facility] for evaluation of elevated BP's 206/106 in the office. She received care at [facility] and co-managed by [facility] for Chronic hypertension, AMA and history of stroke. She was on Labetolol 200mg BID, Clonidine 0.1mg prn and Low dose aspirin, but had a mild headache and denied blurred vision. BPP in office was 8/8 and SOHA 13.47cm She was admitted for BP control and over the next 2 weeks receiving IV Magnesium sulfate , IV antibiotics and steroids and was delivered by C Section @ 32 2/7 weeks after worsening BP's and Preeclampsia. Post operative course was unremarkable, and by POD #2 she was tolerating a reg diet without nausea or vomiting, ambulating and voiding without difficulty, and BP's controlled with Labetolol 400mg TID. She was therefore discharged on POD #3 in stable condition, and will follow up in the office in 1 week for BP check. Condition at discharge: Good Disposition: [id number] TO HOME OR SELFCARE - Discharge Diagnoses (1) 30 weeks gestation of Status: Resolved (2) Advanced maternal age (AMA), 40 years or greater Status: Chronic (3) Chronic hypertension affecting Status: Resolved (4) History of CVA (cerebrovascular accident) Status: Chronic (5) 31 weeks gestation of Status: Resolved (6) 32 weeks gestation of Status: Resolved (7) Status post Status: Resolved Plan - Discharge Medications Prescriptions: Ferrous Sulfate [Feosol 325 MG tab] 325 mg PO QDAY #60 tablet Ibuprofen [Motrin 800 MG tab] 800 mg PO Q6H PRN #30 tablet PRN Reason: Pain, Mild (1-3) Labetalol [Normodyne TAB] 400 mg PO Q8HR #90 tablet oxyCODONE /ACETAMINOPHEN [Percocet 5/325 mg] 1 tab PO Q6H PRN #30 tablet PRN Reason: Pain, Moderate (4-6) Vit-Fe Fumar-FA [ Vitamin] 1 each PO QDAY #30 tablet - Provider Discharge Summary Activity: routine, no sex for 6 weeks, no heavy lifting 4 weeks, no strenuous exercise Diet: routine Instructions: routine Additional instructions: [] Smoking cessation referral if applicable(refer to patient education folder for contact #) [] Refer to [facility]'s [facility] Booklet Call your doctor immediately for: * Fever > 100.5 * Heavy vaginal bleeding ( >1 pad per hour) * Severe persistent headache * Shortness of breath * Reddened, hot, painful area to leg or breast * Drainage or odor from incision. * Keep incision clean and dry at all times and follow doctor's instructions regarding bathing/showering Follow up in the office in 1 week for BP check - Follow up plan Follow up: IWONA DALTON MD [Primary Care Provider] - 7 Days GORAN RODRIGUEZ CNM [Advanced Practice Nurse] - 7 Days
[2018-12-12] MEDS: PRENATAL VITAMIN PO SCH (10:33)
[2018-12-12] MEDS: FEOSOL PO SCH (10:34)
[2018-12-12 14:40] VITALS: BP 149/68
== END 2018-12-12 14:35 | disposition home or self-care (01) | DRG 765 ==
LOC: LD 13:44 → TRG 13:44 → LD 14:55 → TRG 15:54 → OBSVTOIN 17:00 → OB 12-10 14:27
PROVIDERS: ADMIT Obstetrics & Gynecology; ATTEND Obstetrics & Gynecology
PROC: 10D00Z1 Extraction of Products of Conception, Low, Open Approach (ICD-10-PCS; principal; 2018-12-09)
PROC: 0UL70CZ Occlusion of Bilateral Fallopian Tubes with Extraluminal Device, Open Approach (ICD-10-PCS; 2018-12-09)
DX: O14.14 Severe pre-eclampsia complicating childbirth (principal); O99.42 Diseases of the circulatory system complicating childbirth; O60.14X0 Preterm labor third trimester with preterm delivery third trimester, not applicable or unspecified; O99.214 Obesity complicating childbirth; O99.354 Diseases of the nervous system complicating childbirth; O12.04 Gestational edema, complicating childbirth; O99.89 Other specified diseases and conditions complicating pregnancy, childbirth and the puerperium; O76 Abnormality in fetal heart rate and rhythm complicating labor and delivery; O99.12 Other diseases of the blood and blood-forming organs and certain disorders involving the immune mechanism complicating childbirth; R51 Headache; O32.8XX0 Maternal care for other malpresentation of fetus, not applicable or unspecified; G93.9 Disorder of brain, unspecified; E66.01 Morbid (severe) obesity due to excess calories; D69.6 Thrombocytopenia, unspecified; R00.1 Bradycardia, unspecified; I69.398 Other sequelae of cerebral infarction; I69.351 Hemiplegia and hemiparesis following cerebral infarction affecting right dominant side; I69.320 Aphasia following cerebral infarction; Z3A.30 30 weeks gestation of pregnancy; Z79.82 Long term (current) use of aspirin; I25.10 Atherosclerotic heart disease of native coronary artery without angina pectoris
CPT/HCPCS: 36415; 70450; 70551; 76816; 76819; 76820; 80053; 81001; 82565; 83615; 83735; 84156; 84450; 84460; 84550; 85014; 85018; 85025; 85027; 86850; 86900; 86901; 88307; 90707; 93005; 93010; 96374; 96376; G0378; C9250; J0290; J0360; J0595; J0690; J0702; J1100; J1885; J2405; J2590; J2765; J3010; J3475; J7120; J7121; Q0169